=== PATIENT | female | born 1940 | race Caucasian/White ===

== ENCOUNTER 2020-07-13 08:03 | Outpatient (REF) | payer MEDICARE, MEDICAID, SELFPAY ==
--- NOTE | ~2020-07-13 | XR_ITS ---
EXAMINATION: XR SHOULDER, RIGHT CLINICAL INFORMATION: Right shoulder pain COMPARISON: None TECHNIQUE: AP external rotation, Grashey, scapular Y, and axillary views of the right shoulder. FINDINGS: There is significant loss of glenohumeral joint space with inferior periarticular spurring. The AC joint is normal. No visible acute fracture, dislocation or subluxation seen. There is no soft tissue calcification. XR/XR shoulder RT min 2V IMPRESSION: Severe degenerative changes glenohumeral joint with periarticular spurring.
== END 2020-07-13 08:04 | disposition home or self-care (01) ==
LOC: HO.HOSX 08:03
PROVIDERS: Visit Provider Orthopaedic Surgery
DX: M19.011 Primary osteoarthritis, right shoulder (principal)
CPT/HCPCS: 73030

== ENCOUNTER → 2020-07-13 08:04 | Outpatient (BNVA) | payer MEDICARE, MEDICAID, SELFPAY | PROVIDERS: PCP Internal Medicine; Visit Provider Orthopaedic Surgery | DX: M19.011 Primary osteoarthritis, right shoulder (principal) | CPT/HCPCS: 20610; 99202; J1040; J1100 ==

== ENCOUNTER 2020-10-01 14:22 | Outpatient (REF) | payer MEDICARE, MEDICAID, SELFPAY ==
[2020-10-01 16:12] LABS: Urine Cytology See Pathology rpt
== END 2020-10-01 14:23 | disposition home or self-care (01) ==
LOC: HO.LNP 14:22
PROVIDERS: PCP Internal Medicine
DX: R31.9 Hematuria, unspecified (principal); R32 Unspecified urinary incontinence
CPT/HCPCS: 51798; 88112; 99212

== ENCOUNTER 2020-10-19 09:01 | Outpatient (REF) | payer MEDICARE, MEDICAID, SELFPAY ==
--- NOTE | ~2020-10-19 | US_ITS ---
EXAMINATION: US RETROPERITONEAL LIMITED (RENAL ONLY) CLINICAL INFORMATION: Hematuria, unspecified. COMPARISON: CT abdomen and pelvis without contrast dated 09/11/2018. TECHNIQUE: Real-time imaging of the kidneys. FINDINGS: RIGHT KIDNEY: 11.1 x 3.6 x 5.4 cm (SAG x AP x TRV). The kidney is normal in size, contour, and echogenicity. Renal cortical thickness is normal. No calculi or focal parenchymal lesions. No hydronephrosis. LEFT KIDNEY: 10.6 x 4.2 x 4.4 cm (SAG x AP x TRV). The kidney is normal in size, contour, and echogenicity. Renal cortical thickness is normal. No calculi or focal parenchymal lesions. No hydronephrosis. US/US renal BI IMPRESSION: Unremarkable examination.
== END 2020-10-19 09:02 | disposition home or self-care (01) ==
LOC: HO.HMGCX 09:01
PROVIDERS: PCP Hospitalist
DX: R31.9 Hematuria, unspecified (principal)
CPT/HCPCS: 76775

== ENCOUNTER 2020-11-04 | Outpatient (REF) | payer MEDICARE, MEDICAID, SELFPAY | END 2020-11-04 00:01 | disposition home or self-care (01) | LOC: HO.LNP | PROVIDERS: Visit Provider Internal Medicine | DX: Z20.822 Contact with and (suspected) exposure to COVID-19 (principal); J06.9 Acute upper respiratory infection, unspecified | CPT/HCPCS: U0003; U0005 ==

== ENCOUNTER → 2020-12-23 14:44 | Outpatient (BNVA) | payer MEDICARE, MEDICAID, SELFPAY | PROVIDERS: Visit Provider Urology | DX: R31.9 Hematuria, unspecified (principal); N32.81 Overactive bladder | CPT/HCPCS: 52000; 99212 ==

== ENCOUNTER 2021-01-25 08:01 | Outpatient (REF) | payer MEDICARE, MEDICAID, SELFPAY | END 2021-01-25 08:02 | disposition home or self-care (01) | LOC: HO.HMGCLDS 08:01 | PROVIDERS: PCP Hospitalist; Visit Provider Internal Medicine | DX: Z20.822 Contact with and (suspected) exposure to COVID-19 (principal) | CPT/HCPCS: C9803; U0003; U0005 ==

== ENCOUNTER → 2021-04-08 13:54 | Outpatient (BNVA) | payer MEDICARE, MEDICAID, SELFPAY | PROVIDERS: PCP Internal Medicine; Visit Provider Orthopaedic Surgery | DX: M19.011 Primary osteoarthritis, right shoulder (principal) | CPT/HCPCS: 20610; 99212; J1040 ==

== ENCOUNTER 2021-04-10 07:51 | Outpatient (REF) | payer MEDICARE, MEDICAID, SELFPAY ==
[2021-04-10 11:12] LABS: MANUAL DIFF FLAG NO
[2021-04-10 11:19] LABS: Basophils Percent Auto 0.8 % (0-2); Eosinophils Absolute Auto 0.1 X10*3/uL (0.0-0.4); Eosinophils Percent Auto 1.4 % (0-4); Hematocrit 42.9 % (37.0-47.0); Hemoglobin 15.4 g/dl (12.0-16.0); Imm Gran Abs Auto 0.01 X10*3/uL (0.00-0.03); Imm Gran Pct Auto 0.2 % (0.0-0.4); Lymphocytes Absolute Auto 1.5 X10*3/uL (1.2-4.9); Lymphocytes Percent Auto 29.6 % (20-40); Mean Corpuscular HGB Conc 35.9 g/dl (31.0-35.0); Mean Corpuscular Hemoglobin 35.9 pg (27.0-33.0); Monocytes Absolute Auto 0.4 X10*3/uL (0.1-1.2); Monocytes Percent Auto 8.7 % (2-11); Neutrophils Absolute Auto 2.9 x10*3/uL (2.0-8.3); Neutrophils Percent Auto 59.3 % (45-73); Platelet Count 227 X10*3/uL (160-400); Red Blood Count 4.29 X10*6/uL (4.20-5.50); Red Cell Distribution Width 12.2 % (11.0-16.0); White Blood Count 4.9 X10*3/uL (4.8-10.8)
[2021-04-10 11:49] LABS: Alanine Aminotransferase 29 U/L (0-31); Albumin Level 4.2 g/dL (3.5-5.0); Alkaline Phosphatase 110 U/L (39-117); Anion Gap 12 (12-20); Aspartate Amino Transferase 27 U/L (5-31); Bilirubin Total 0.5 mg/dL (0.0-1.0); Blood Urea Nitrogen 13 mg/dL (9-16); Carbon Dioxide 29 mmol/L (22-29); Chloride 95 mmol/L (96-108); Cholesterol 192 mg/dL; Estimated Glomerular Filt Rate > 60; Glucose Fasting 94 mg/dL (60-99); HDL Cholesterol 66 mg/dL; LDL Cholesterol Calculated 105 mg/dl; Potassium 4.3 mmol/L (3.3-5.1); Sodium 132 mmol/L (135-145); Total Protein 6.9 g/dL (6.5-8.0); Triglycerides 105 mg/dL
[2021-04-12 05:00] LABS: Vitamin B12 410 pg/mL (200-900)
[2021-04-15 13:32] LABS: Vitamin D 25-OH, D2 <4 ng/mL; Vitamin D 25-OH, D3 32 ng/mL; Vitamin D 25-OH, Total 32 ng/mL (30-100)
== END 2021-04-10 07:52 | disposition home or self-care (01) ==
LOC: HO.HMGCLDS 07:51
PROVIDERS: Visit Provider Internal Medicine
DX: M19.011 Primary osteoarthritis, right shoulder (principal); N32.81 Overactive bladder; Z76.89 Persons encountering health services in other specified circumstances
CPT/HCPCS: 36415; 80053; 80061; 82306; 82607; 84443; 85025

== ENCOUNTER 2021-04-22 14:13 | Outpatient (REF) | payer MEDICARE, MEDICAID, SELFPAY ==
--- NOTE | 2021-04-23 09:20 | MHC.AU.ANO ---
Adult Audiological Evaluation Date of Visit: 04/22/21 Patternator Used: Not Applicable Reason for Appointment: Audiologic re-evaluation due to increased hearing difficulties. Leela was previously seen at this office in 2013 and received binaural ip-yml-metta hearing aids. Both hearing aids are no longer functioning and she needs new hearing aids to facilitate communication. Has hearing been tested previously?: Yes Previous Hearing Test Results: 2013 [facility] Bilateral mild to moderately-severe sensorineural hearing loss. Hearing Handicap Inventory: HHIE SCORE: 18 Based on HHIE score, patient has: Mild to moderate perceived hearing handicap Ear History: Family History of Hearing Loss?: Yes History of occupational noise exposure?: Yes History: No Medical History: Medical History: Seizure Disorder, Tobacco Use, Dementia Medication List: Carbamazepine, Effexor (may cause slower auditory processing ability), Tamsulosin, Phenobarbital, Trelegy Ellipta, Vitamin D3, Fish Oil, Typlenol, Melatonin Otoscopy: Right Ear: Unremarkable Left Ear: Unremarkable Tympanometry: Tympanometry performed due to: To assess integrity of the middle ear system Right Ear: Normal Middle Ear System (Type A) Left Ear: Normal Middle Ear System (Type A) Otoacoustic Emissions Not performed at today's visit due to degree of hearing loss Hearing Evaluation: Transducer(s) Used: Insert Earphones Bone Conduction Method: Conventional Audiometry Stimuli Used: Pure Tones Right Ear: Description of Hearing: Mild dropping to severe sensorineural hearing loss. Compared to the left ear, thresholds at 6613-3102 Hz are 5-15 dB poorer. Left Ear: Description of Hearing: Mild dropping to severe sensorineural hearing loss. Speech Recognition Threshold (SRT): Method Used: Monitored Live Voice Stimuli Used: Spondee Words Right Ear: 50 dB HL Left Ear: 40 dB HL Word Discrimination: Method: Recorded Lists Word Lists Used: NU-6 Right Ear: 64% at 85 dB HL Left Ear: 72% at 80 dB HL Most Comfortable Level (MCL): Right Ear: 85 dB HL Left Ear: 80 dB HL Comparison: Compared to the most recent evaluation: Thresholds have decreased bilaterally and Word discrimination scores have decreased bilaterally. Recommendations: Trial with new binaural amplification is recommended. Medical clearance from a physician is required before fitting. Hearing Aid Fitting will be scheduled when all materials arrive. Audiological re-evaluation in one year. Will send a reminder card. Diagnosis: Primary Diagnosis: H90.3 Bilateral Sensorineural Hearing Loss Services Performed: Comprehensive Audiological Evaluation (CPT 67636) Tympanometry (CPT 85074) Signature: Provider: Rita Gregory, CCC-A
--- NOTE | 2021-04-23 09:24 | MHC.AU.MED ---
Medical Clearance for Hearing Instrumentation Date: 04/23/21 Patient Name: Leela Trujillo Date of : 1940 Primary Care Provider: Referring Provider: Nila Eldridge M.D. We have seen your patient on 04/22/21 and have determined that they are a candidate for amplification (See accompanying report). Specifically, they would benefit from: Hearing aid use in both ears There is a statute that addresses Medical Evaluation Requirements prior to fitting a patient with a hearing aid. According to [place] statute 265 CMR:6.03(1), (a) General. Except as provided in 265 CMR 6.03(1)(b), a java grails developer shall not sell a hearing aid unless the prospective user has presented to the java grails developer a written statement signed by a licensed physician that states that the patient's hearing loss has been medically evaluated and the patient may be considered a candidate for a hearing aid. The medical evaluation must have taken place within the preceding six months. Please note: Due to the [place] Statute referenced above, we cannot accept a signature other than that of a licensed physician. MANAGER OF PRODUCTION and PA signatures cannot be accepted. I am in agreement with the above recommendation. There is no medical contraindication for hearing instrumentation. Physician Signature Date Physician Name (Printed)
--- NOTE | 2021-04-23 09:38 | MHC.AU.HAS ---
Hearing Aid Evaluation Date of Visit: 04/22/21 Historical Information: Description of Hearing: Bilateral Mild dropping to severe sensorineural hearing loss Current personal amplification information, if applicable: 2013 Phonak Virto Q 312-NW aids not working. Summary: Due to patient's increasing hearing loss, decreased speech understanding and progressing dementia, recommend new binaural hearing aids. Discussed needs with patient and her daughter. As daughter is concerned patient will remove aids and misplace them, as well as ease of placing aids in ears, advise custom hearing aids with OtoClips to attach to clothing to reduce likelihood of losing aids. Hearing Aid Prescription: Based on the individual?s shared listening needs, communication environments, dexterity, desire for connectivity, and personal preferences, the following prescription for amplification has been made: Right ear: Frame Carver Spindle: Phonak Model: Virto P 70 ITC with Otoclip clasp Battery Size: 312 Color: [place] Steel Checker: Super Power Left ear: Left ear prescription to be same as Right Hearing Aid above: Frame Carver Spindle: Phonak Model: Virto P 70-312 Battery Size: 312 Color: [place] Steel Checker: Super Power Plan of Care: Patient wishes to purchase hearing aids as prescribed Action Taken/Action Needed: Earmold Impressions Taken Medical Clearance to be requested from PCP/ENT Hearing Instrument Fitting to be scheduled when materials arrive Primary Diagnosis: H90.3 Bilateral Sensorineural Hearing Loss Signature: Provider: Rita Gregory, CCC-A
== END 2021-04-22 14:14 | disposition home or self-care (01) ==
LOC: HO.SH 14:13
PROVIDERS: Visit Provider Hospitalist
DX: Z01.118 Encounter for examination of ears and hearing with other abnormal findings (principal); H90.3 Sensorineural hearing loss, bilateral
CPT/HCPCS: 92557; 92567; 92591; V5275

== ENCOUNTER → 2021-05-19 14:46 | Outpatient (BNVA) | payer MEDICARE, MEDICAID, SELFPAY | PROVIDERS: PCP Internal Medicine; Visit Provider Nurse Practitioner Family | DX: M19.011 Primary osteoarthritis, right shoulder (principal); G31.09 Other frontotemporal neurocognitive disorder; F02.80 Dementia in other diseases classified elsewhere, unspecified severity, without behavioral disturbance, psychotic disturbance, mood disturbance, and anxiety | CPT/HCPCS: 99202 ==

== ENCOUNTER 2021-06-03 10:23 | Outpatient (REF) | payer MEDICARE, MEDICAID, SELFPAY | END 2021-06-03 10:24 | disposition home or self-care (01) | LOC: HO.HAP 10:23 | PROVIDERS: Visit Provider Internal Medicine | DX: Z46.1 Encounter for fitting and adjustment of hearing aid (principal); H90.3 Sensorineural hearing loss, bilateral | CPT/HCPCS: V5011; V5020; V5160; V5259; V5266 ==

== ENCOUNTER 2021-06-10 16:37 | Emergency (ER) | payer MEDICARE, MEDICAID, SELFPAY ==
--- NOTE | ~2021-06-10 | CT_ITS ---
EXAMINATION: HEAD CT WITHOUT CONTRAST CERVICAL SPINE CT WITHOUT CONTRAST CLINICAL INFORMATION: Fall, posterior head strike COMPARISON: CT head 09/11/2018 TECHNIQUE: Contiguous axial imaging of the head was performed without the administration of IV contrast. Axial multidetector volumetric images were also performed through the cervical spine without contrast. Multiplanar reconstructed images in coronal and sagittal orientations were submitted. DOSE: 887 mGy-cm FINDINGS: HEAD: There is left occipital soft tissue swelling and scalp hematoma. No underlying skull fracture. There is no evidence of acute intracranial hemorrhage or territorial infarction. No abnormal mass-effect or midline shift. No extra-axial fluid collections. Crawford to white matter differentiation is well preserved. Commensurate prominence of the ventricles and sulci is compatible with generalized parenchymal volume loss. There is patchy periventricular and subcortical white matter hypoattenuation, most likely representing microangiopathic disease The sinuses and mastoid air cells are clear. CERVICAL SPINE: Vertebral body heights are maintained. No fractures of the vertebral bodies or posterior elements. Straightening of cervical curvature. Mild anterolisthesis of C3 and C4. Mild anterolisthesis at C7-T1. Severe disc degeneration C4-C7. Multilevel facet degeneration. The craniocervical and atlantoaxial articulations are normal. No significant paravertebral soft tissue swelling. Cervical soft tissues are unremarkable. Imaged portions of the lung apices are clear. CT/CT head/brain wo con IMPRESSION: 1. No CT evidence acute intracranial hemorrhage or territorial infarction. 2. Left occipital soft tissue swelling and scalp hematoma. 3. Chronic findings of the brain as detailed above. 4. No acute fracture in the cervical spine. 4. Severe cervical spondylosis.
--- NOTE | ~2021-06-10 | CT_ITS ---
EXAMINATION: HEAD CT WITHOUT CONTRAST CERVICAL SPINE CT WITHOUT CONTRAST CLINICAL INFORMATION: Fall, posterior head strike COMPARISON: CT head 09/11/2018 TECHNIQUE: Contiguous axial imaging of the head was performed without the administration of IV contrast. Axial multidetector volumetric images were also performed through the cervical spine without contrast. Multiplanar reconstructed images in coronal and sagittal orientations were submitted. DOSE: 887 mGy-cm FINDINGS: HEAD: There is left occipital soft tissue swelling and scalp hematoma. No underlying skull fracture. There is no evidence of acute intracranial hemorrhage or territorial infarction. No abnormal mass-effect or midline shift. No extra-axial fluid collections. Crawford to white matter differentiation is well preserved. Commensurate prominence of the ventricles and sulci is compatible with generalized parenchymal volume loss. There is patchy periventricular and subcortical white matter hypoattenuation, most likely representing microangiopathic disease The sinuses and mastoid air cells are clear. CERVICAL SPINE: Vertebral body heights are maintained. No fractures of the vertebral bodies or posterior elements. Straightening of cervical curvature. Mild anterolisthesis of C3 and C4. Mild anterolisthesis at C7-T1. Severe disc degeneration C4-C7. Multilevel facet degeneration. The craniocervical and atlantoaxial articulations are normal. No significant paravertebral soft tissue swelling. Cervical soft tissues are unremarkable. Imaged portions of the lung apices are clear. CT/CT cervical spine wo con IMPRESSION: 1. No CT evidence acute intracranial hemorrhage or territorial infarction. 2. Left occipital soft tissue swelling and scalp hematoma. 3. Chronic findings of the brain as detailed above. 4. No acute fracture in the cervical spine. 4. Severe cervical spondylosis.
[2021-06-10 17:23] VITALS: BP 144/90; PULSE 70; RESP 16; TEMP 36.1; O2SAT 99; BMI 28.5
--- NOTE | 2021-06-10 18:01 | ED_ITS ---
HPI - Fall General Chief Complaint: Wound/Laceration <NATHALIE Mcdermott Last Filed: 06/10/21 18:47> Stated Complaint: fall - head lac <NATHALIE Mcdermott Last Filed: 06/10/21 18:47> Time Seen by Provider: 06/10/21 17:34 <NATHALIE Mcdermott Last Filed: 06/10/21 18:47> Source: patient and family <NATHALIE Mcdermott Last Filed: 06/10/21 18:47> Mode of arrival: ambulatory <NATHALIE Mcdermott Last Filed: 06/10/21 18:47> Limitations: no limitations <NATHALIE Mcdermott Last Filed: 06/10/21 18:47> History of Present Illness HPI Narrative: 72-year-old female with a history of osteoarthritis, frontal lobe dementia, balance issues, COPD, seizures who presents to the ER for evaluation of a head injury. She was at home with her daughter when she got up out of her chair on the outside deck and was walking to go inside when she lost her balance while turning and fell backward and hit the back of her head on the deck. Fall was witnessed by her daughter. She did not lose consciousness. She is not on anticoagulation. Patient denies dizziness, lightheadedness or chest pain prior to the fall. Her daughter reports she is unsteady on her feet at baseline and is supposed to be using a walker. No other injuries. <NATHALIE Mcdermott Last Filed: 06/10/21 18:47> MD complaint: fall <NATHALIE Mcdermott Last Filed: 06/10/21 18:47> Onset (ago): hour(s) <NATHALIE Mcdermott Last Filed: 06/10/21 18:47> Fall from: standing <NATHALIE Mcdermott Last Filed: 06/10/21 18:47> Fall witnessed: yes, by family <NATHALIE Mcdermott Last Filed: 06/10/21 18:47> Place fall occurred: home <NATHALIE Mcdermott Last Filed: 06/10/21 18:47> Loss of consciousness: none <NATHALIE Mcdermott Last Filed: 06/10/21 18:47> Prolonged down time: no <NATHALIE Mcdermott - Last Filed: 06/10/21 18:47> Symptoms prior to fall: none <NATHALIE Mcdermott - Last Filed: 06/10/21 18:47> Context: tripped/slipped <NATHALIE Mcdermott - Last Filed: 06/10/21 18:47> Location of injury: head <NATHALIE Mcdermott - Last Filed: 06/10/21 18:47> Severity: mild <NATHALIE Mcdermott - Last Filed: 06/10/21 18:47> Severity scale (1-10): 3 <NATHALIE Mcdermott - Last Filed: 06/10/21 18:47> Quality: aching <NATHALIE Mcdermott - Last Filed: 06/10/21 18:47> Associated symptoms (after fall): headache (now improved) <NATHALIE Mcdermott - Last Filed: 06/10/21 18:47> Related Data Home Medications: Home Medications Medication Instructions Recorded Confirmed melatonin 5 mg capsule mg PO 07/13/20 05/19/21 omega-3 fatty acids 1,000 mg 1,000 mg PO DAILY 07/13/20 05/19/21 capsule (Fish Oil Concentrate) phenobarbital 97.2 mg tablet 97.2 mg PO DAILY 07/13/20 05/19/21 venlafaxine 150 mg 150 mg PO DAILY 07/13/20 05/19/21 capsule,extended release 24 hr acetaminophen 650 mg 650 mg PO Q12H 04/08/21 05/19/21 tablet,extended release (Tylenol 8 Hour) aspirin 81 mg tablet,delayed 81 mg PO DAILY 04/08/21 05/19/21 release carbamazepine 200 mg 600 mg PO BID tab 04/09/21 05/19/21 tablet,extended release,12 hr cholecalciferol (vitamin D3) 25 25 mcg PO DAILY 04/09/21 05/19/21 mcg (1,000 unit) capsule Previous Rx's Medication Instructions Recorded tamsulosin 0.4 mg capsule (Flomax) 0.4 mg PO BEDTIME #90 cap 02/04/21 fluticasone fur. 100 mcg-umeclid 1 ea INHALATION DAILY 90 Days #3 04/12/21 62.5 mcg-vilant 25 mcg units inhalat.powder <NATHALIE Mcdermott - Last Filed: 06/10/21 18:47> Allergies/Adverse Reactions: Allergies Allergy/AdvReac Type Severity Reaction Status Date / Time divalproex sodium Allergy Unknown UNKNOWN Verified 05/19/21 15:00 [From DEPAKOTE] phenytoin [Dilantin] Allergy Unknown unk Verified 05/19/21 15:00 <NATHALIE Mcdermott - Last Filed: 06/10/21 18:47> Review of Systems Review of Systems: Constitutional: No Fever, No Chills ENT/Mouth: No sore throat, No Rhinorrhea, No Swallowing Difficulty Eyes: No Eye Pain, No Swelling, No Redness Cardiovascular: No Chest Pain, No SOB, No Orthopnea, No Edema Respiratory: No Cough, No Sputum, No Wheezing, No dyspnea Gastrointestinal: No Nausea, No Vomiting, No Diarrhea, No abdominal Pain Genitourinary: No Dysuria, No Urinary Frequency, No Hematuria Musculoskeletal: No joint pain, No Myalgias Skin: +Skin Lesions, No rash Neuro: No Weakness, No Numbness, No Dizziness, + Headache Psych: No Anxiety/Panic, No Depression Heme/Lymph: No Bruising, No Lymphadenopathy, +Bleeding Endocrine: No Polyuria, No Polydipsia <NATHALIE Mcdermott - Last Filed: 06/10/21 18:47> [facility] Past Medical History Medical History: Medical History Epilepsy Hematuria Osteoarthritis of right shoulder <NATHALIE Mcdermott - Last Filed: 06/10/21 18:47> Surgical History: Surgical History History of appendectomy History of cataract surgery History of cholecystectomy <NATHALIE Mcdermott - Last Filed: 06/10/21 18:47> Family History Family History: Family History Maternal Grandmother Stomach cancer Sister Breast cancer <NATHALIE Mcdermott - Last Filed: 06/10/21 18:47> Social History Social History: Social History Housing: House Alcohol intake: never Patient Tobacco Use Status: Former Tobacco user Advance Directives: No Advance Directives Information Provided: No Current occupational status: disabled Current occupation: right handed <NATHALIE Mcdermott - Last Filed: 06/10/21 18:47> Physical Exam Vital Signs: Vital Signs: Last Vital Signs Temp 97 F 06/10/21 17:23 Pulse 70 06/10/21 17:23 Resp 16 06/10/21 17:23 BP 144/90 H 06/10/21 17:23 Pulse Ox 99 06/10/21 17:23 BMI result Body Mass Index 28.5 <NATHALIE Mcdermott - Last Filed: 06/10/21 18:47> Vital Signs: Last Vital Signs Temp 97 F 06/10/21 17:23 Pulse 70 06/10/21 17:23 Resp 16 06/10/21 17:23 BP 144/90 H 06/10/21 17:23 Pulse Ox 99 06/10/21 17:23 BMI result Body Mass Index 28.5 <NATHALIE Warren - Last Filed: 06/10/21 19:36> Appearance: Alert. Oriented X2. No acute distress. Head: occipitial area with an area of dried blood on the scalp, no active bleeding, non-tender. Eyes: Pupils equal, round and reactive to light. ENT: Pharynx normal. Neck: Normal inspection. Neck supple. No midline tenderness. CVS: Normal heart rate and rhythm. Pulses normal. Respiratory: No respiratory distress. Breath sounds normal. Abdomen: Soft and nontender. +BS x4 Skin: Skin warm and dry. Normal skin color. Normal skin turgor. No rashes. Extremities: Atraumatic x4, No lower extremity edema. Neuro: Oriented X 2. No motor deficit. No sensory deficit. Slow but steady gait in short distances. <NATHALIE Mcdermott - Last Filed: 06/10/21 18:47> Course Course Course Narrative: 72-year-old female with history of dementia, unsteady gait at baseline who presents to the ER with a fall and head injury. She hit the back of her head on the deck outside her home, did not lose consciousness and she is not on anticoagulation. She had a mild headache initially which is now resolved. No active bleeding but there is dried blood on the occipital area of the scalp with difficulty visualizing a laceration or not. Area is soaking in saline, will reassess need for possible sandhya. Will get CT scan of her head and neck for further evaluation of possible traumatic injury. Patient appears comfortable and denies pain at this time. <NATHALIE Mcdermott - Last Filed: 06/10/21 18:47> Reevaluation(s) Reevaluation #1: Lac to posterior scalp is minor, superficial, aleady well approximated and not bleeding, no need for sandhya. Signed out to night provider who will follow up CT scan results. <NATHALIE Mcdermott Last Filed: 06/10/21 18:47> Reevaluation #2: CT of head and cervical spine with nose CT evidence of acute intracranial hemorrhage or territorial infarction. Left occipital soft tissue swelling and scalp hematoma noted. Chronic findings in the brain however no acute findings. No acute fractures or subluxations in the cervical spine. At this time patient will be discharged home. Outlined worrisome signs and symptoms on discharge. Advised her to return if any of these arrives. Comfortable discharge. Upon discharge patient's vital signs were stable. Patient's neuro exam nonfocal. Normal ofizhz-vs-cber, ywyj-oe-ztzt normal tandem gaits. Pupils equal round and reactive to light bilaterally. <NATHALIE Warren - Last Filed: 06/10/21 19:36> Time: 19:34 <NATHALIE Warren Last Filed: 06/10/21 19:36> Discharge Plan Discharge Clinical Impression: Head injury <NATHALIE Mcdermott Last Filed: 06/10/21 18:47> Patient Disposition: Home, Self-Care <NATHALIE Mcdermott Last Filed: 06/10/21 18:47> Instructions: Head Injury (ED) <NATHALIE Mcdermott Last Filed: 06/10/21 18:47> Additional Instructions: Your CT scans did not show any acute injuries. Use bacitracin on the scalp wound 2x per day. Follow up with your doctor in 1 week. Return to the emergency department with new or worsening symptoms. Such as fevers, chills, chest pain, shortness of breath, nausea, vomiting, dizziness, headache, vision changes, lethargy, vision changes, seizure like activity In case of emergency call 911 CT/CT head/brain wo con IMPRESSION: 1. No CT evidence acute intracranial hemorrhage or territorial infarction. ? 2. Left occipital soft tissue swelling and scalp hematoma. ? 3. Chronic findings of the brain as detailed above. ? 4.? No acute fracture in the cervical spine. ? 4. Severe cervical spondylosis. <NATHALIE Mcdermott - Last Filed: 06/10/21 18:47> Prescriptions: No Action tamsulosin [Flomax] 0.4 mg capsule 0.4 mg PO BEDTIME Qty: 90 2RF ssumglsdidg-qifukfgra-ulgziyzt 100-62.5-25 mcg blister with device 1 ea inhalation DAILY 90 Days Qty: 3 0RF carbamazepine 200 mg tablet extended release 12 hr 600 mg PO BID 0RF cholecalciferol (vitamin D3) 25 mcg (1,000 unit) capsule 25 mcg PO DAILY 0RF omega-3 fatty acids [Fish Oil Concentrate] 1,000 mg capsule 1,000 mg PO DAILY 0RF phenobarbital 97.2 mg tablet 97.2 mg PO DAILY 0RF venlafaxine 150 mg capsule,extended release 24hr 150 mg PO DAILY 0RF melatonin 5 mg capsule PO 0RF Rx Instructions: at bedtime aspirin 81 mg tablet,delayed release (DR/EC) 81 mg PO DAILY 0RF acetaminophen [Tylenol 8 Hour] 650 mg tablet extended release 650 mg PO Q12H 0RF <NATHALIE Mcdermott - Last Filed: 06/10/21 18:47> Referrals: Nila Eldridge MD [Primary Care Provider] - 1 week <NATHALIE Mcdermott - Last Filed: 06/10/21 18:47> Stand Alone Forms: Work/School Release <NATHALIE Mcdermott - Last Filed: 06/10/21 18:47>
== END 2021-06-10 19:52 | disposition home or self-care (01) ==
PROVIDERS: Emergency Provider Emergency Medicine; PCP Internal Medicine
DX: S06.2X9A Diffuse traumatic brain injury with loss of consciousness of unspecified duration, initial encounter (principal); S01.01XA Laceration without foreign body of scalp, initial encounter; M54.2 Cervicalgia; F03.90 Unspecified dementia, unspecified severity, without behavioral disturbance, psychotic disturbance, mood disturbance, and anxiety; R26.81 Unsteadiness on feet; W01.0XXA Fall on same level from slipping, tripping and stumbling without subsequent striking against object, initial encounter; Y93.9 Activity, unspecified; Y92.9 Unspecified place or not applicable; Y99.9 Unspecified external cause status; Z79.899 Other long term (current) drug therapy
CPT/HCPCS: 70450; 72125; 99284

== ENCOUNTER 2021-06-17 13:24 | Outpatient (REF) | payer MEDICARE, MEDICAID, SELFPAY | END 2021-06-17 13:25 | disposition home or self-care (01) | LOC: HO.HAP 13:24 | PROVIDERS: Visit Provider Internal Medicine | DX: Z13.89 Encounter for screening for other disorder (principal) ==

== ENCOUNTER 2021-07-07 05:54 | Outpatient (REF) | payer MEDICARE, MEDICAID, SELFPAY ==
--- NOTE | ~2021-07-07 | FL_ITS ---
EXAMINATION: XR FLUOROSCOPY WITH IMAGES CLINICAL INFORMATION: Primary osteoarthritis right shoulder COMPARISON: Radiographs right shoulder 07/13/2020 TECHNIQUE: Fluoroscopy performed by Dr. Zachery Rothman. Fluoroscopy time: 0.4 minutes DAP: 1.56 Gycm2 Images: 2 FINDINGS: Spinal needle resides just above the mid right scapular spine. There is contrast in the soft tissues. No visible vascular communication. Degenerative changes involve the glenohumeral joint as noted on recent radiographs. FL/FL guidance in treatment room IMPRESSION: Fluoroscopy for pain management procedure.
== END 2021-07-07 05:55 | disposition home or self-care (01) ==
LOC: HO.RADIR 05:54
PROVIDERS: Visit Provider Internal Medicine
DX: Z13.89 Encounter for screening for other disorder (principal)
CPT/HCPCS: J2795; J3300; Q9967

== ENCOUNTER 2021-07-07 15:14 | Outpatient (REF) | payer MEDICARE, MEDICAID, SELFPAY | END 2021-07-07 15:15 | disposition home or self-care (01) | LOC: HO.HAP 15:14 | PROVIDERS: Visit Provider Internal Medicine | DX: Z46.1 Encounter for fitting and adjustment of hearing aid (principal); M19.011 Primary osteoarthritis, right shoulder; H90.3 Sensorineural hearing loss, bilateral | CPT/HCPCS: 64418; J2795; J3300; Q9967 ==

== ENCOUNTER → 2021-07-13 16:10 | Outpatient (BNVA) | payer MEDICARE, MEDICAID, SELFPAY | PROVIDERS: PCP Internal Medicine; Visit Provider Nurse Practitioner Family | DX: Z13.89 Encounter for screening for other disorder (principal) | CPT/HCPCS: Q3014 ==

== ENCOUNTER 2021-08-07 08:14 | Outpatient (REF) | payer MEDICARE, MEDICAID, SELFPAY ==
[2021-08-07 12:01] LABS: Alanine Aminotransferase 29 U/L (0-31); Albumin Level 4.1 g/dL (3.5-5.0); Alkaline Phosphatase 103 U/L (39-117); Anion Gap 12 (12-20); Aspartate Amino Transferase 25 U/L (5-31); Bilirubin Total 0.6 mg/dL (0.0-1.0); Blood Urea Nitrogen 8 mg/dL (9-16); Calcium 8.8 mg/dL (8.4-10.2); Carbon Dioxide 27 mmol/L (22-29); Chloride 94 mmol/L (96-108); Cholesterol 212 mg/dL; Estimated Glomerular Filt Rate > 60; Glucose Fasting 93 mg/dL (60-99); HDL Cholesterol 60 mg/dL; LDL Cholesterol Calculated 134 mg/dl; Potassium 4.4 mmol/L (3.3-5.1); Sodium 129 mmol/L (135-145); Total Protein 6.6 g/dL (6.5-8.0); Triglycerides 92 mg/dL
== END 2021-08-07 08:15 | disposition home or self-care (01) ==
LOC: HO.HMGCLDS 08:14
PROVIDERS: PCP Internal Medicine; Visit Provider Internal Medicine
DX: E78.9 Disorder of lipoprotein metabolism, unspecified (principal)
CPT/HCPCS: 36415; 80053; 80061

== ENCOUNTER 2021-09-22 11:22 | Day surgery (SDC) | payer MEDICARE, MEDICAID, SELFPAY ==
--- NOTE | ~2021-09-22 | FL_ITS ---
EXAMINATION: XR FLUOROSCOPY WITH IMAGES CLINICAL INFORMATION: Stimulator implant COMPARISON: Radiographs right shoulder 07/13/2020 TECHNIQUE: Fluoroscopy performed by Dr. Zachery Rothman. Fluoroscopy time: 0.4 minutes. Cumulative Dose: 4.24 mGy. DAP: 0.772 Gy-cm2. Images: 1. FINDINGS: There is a needle/electrode with tip overlying the medial aspect right scapular spine. FL/FL guidance in OR IMPRESSION: Fluoroscopy for pain management procedure.
[2021-09-22 10:54] VITALS: BMI 28.5
[2021-09-22 11:54] VITALS: BP 105/89; PULSE 78; RESP 18; TEMP 35.9; O2SAT 96
--- NOTE | 2021-09-22 13:10 | PC.NURSE ---
pt rhythm shows bbb anesthesia aware no new orders
[2021-09-22 13:48] VITALS: BP 118/58; PULSE 68; RESP 16; TEMP 36.2; O2SAT 97
--- NOTE | 2021-09-22 13:55 | MHC.SHP ---
Pre-Procedural Eval Section A Date of Service: 09/22/21 The patient is an INPATIENT: No Changes since office visit: Yes Patient answered all questions The History & Physical has been completed within 30 days and I have reviewed it.: No Section B Chief Complaint: right shoulder pain Relevant Family History (Specify if Yes): No Relevant Social History: None Present Medications: see Short Stay Collaborative assessment Medical History: Significant History (shoulder pain) History of Previous Operations: No relevant previous surgery Allergies: Allergies Allergy/AdvReac Type Severity Reaction Status Date / Time divalproex sodium Allergy Unknown UNKNOWN Verified 08/25/21 10:12 [From DEPAKOTE] phenytoin [Dilantin] Allergy Unknown unk Verified 08/25/21 10:12 Review of Systems Sugical H&P ROS: Negative: Constitution, Cardiovascular, Respiratory and Neurological Exam Surgical H&P Exam: Normal: HEENT, Normal: Heart and Normal: Lungs Plan Diagnosis/Plan: Unchanged I have reviewed the history and physical and performed a pertinent physical examination on my patient. No changes have occurred unless specified.
--- NOTE | 2021-09-22 13:56 | P.BOP_ITS ---
Brief Operative Note Date of Service: 09/22/21 Pre-op diagnosis: Right shoulder pain Post-op diagnosis: same Procedure: Right suprascapular nerve temporary nerve stimulator placement Implants: [employer] PNS system Surgeon: Zachery Rothman MD Anesthesia: local Was an Food Science Technician used for this Procedure?: No Estimated blood loss (mL): 0 Pathology: none sent Condition: stable Disposition: same day
--- NOTE | 2021-09-22 13:57 | W.PM.OPN ---
Operative Note Operative Note Date of Service: 09/22/21 Narrative: Peripheral Nerve Stimulation Temporary Lead Placement, Fluoroscopy-Guided, Suprascapular Nerve, Right ? After the risks, benefits and alternatives were discussed with the patient and informed consent was obtained, patient was placed in the sitting position and padded to foster comfort. Appropriate skin and bony landmarks were identified using fluoroscopy, including the right suprascapular notch. The skin overlying the needle entry site was prepped and draped in sterile fashion. After identifying and marking the intended target along the course of the suprascapular nerve, the skin around the planned entry point and the subcutaneous tissues were injected with local anesthetic. An introducer needle and stimulating probe were assembled, inserted and advanced along the intended course of the suprascapular nerve, taking care to maintain the proper depth of insertion as the introducer was advanced under fluoroscopy guidance. Bony contact was achieved with the scapula and maintained throughout. The introducer needle was delivered to a location in proximity to the nerve. Multiple stimulation parameters were used to deliver stimulation to the suprascapular nerve in concert with stimulating at multiple positions around the nerve. Nerve target acquisition was confirmed noting generation of sensory and mild motor effects (paresthesia, muscle tension, etc) in the shoulder and proximal arm; corresponding to the distribution of the suprascapular nerve. Various electrical parameter combinations were tested, and the lead location was adjusted (physically relocated under image guidance) until the patient indicated shoulder paresthesia and tension overlapping the distribution of the patient?s typical region of pain. The stimulating probe was removed from the introducer and a percutaneous lead was guided through the needle and delivered to a location in similar proximity to the nerve. Final location was verified with electrical stimulation and documented. The introducer needle was removed, and the exposed end of the percutaneous lead was attached to an external stimulator unit. Various electrical parameter combinations were again tested until the patient indicated paresthesia and muscle tension overlapping the distribution of the patient?s typical region of pain. After confirming that lead impedance was in the normal range, the external unit was detached, the needle was removed, and the lead was anchored at the skin. The needle entry site was occluded with dermabond. The lead was threaded into the connector block and electrical continuity and desired patient response was confirmed. The connector block was attached to the external stimulator unit. The site was covered with a sterile occlusive dressing.? A final image was taken to document final placement. The patient was observed for stability of vital signs and comfort.
[2021-09-22 14:03] VITALS: BP 144/85; PULSE 67; RESP 16; O2SAT 97
== END 2021-09-22 14:30 | disposition home or self-care (01) ==
PROVIDERS: PCP Internal Medicine; Visit Provider Internal Medicine
PROC: (CPT 64555; principal; 2021-09-22 12:30)
DX: M25.511 Pain in right shoulder (principal); G89.29 Other chronic pain; M19.011 Primary osteoarthritis, right shoulder; G40.909 Epilepsy, unspecified, not intractable, without status epilepticus; F03.90 Unspecified dementia, unspecified severity, without behavioral disturbance, psychotic disturbance, mood disturbance, and anxiety; Z88.8 Allergy status to other drugs, medicaments and biological substances; Z87.891 Personal history of nicotine dependence
CPT/HCPCS: 64555; C1778

== ENCOUNTER 2021-10-22 18:06 | Outpatient (REF) | payer MEDICARE, MEDICAID, SELFPAY | END 2021-10-22 18:07 | disposition home or self-care (01) | LOC: HO.LNP 18:06 | PROVIDERS: Visit Provider Internal Medicine | DX: N30.90 Cystitis, unspecified without hematuria (principal) | CPT/HCPCS: 87086 ==

== ENCOUNTER → 2021-11-19 08:20 | Outpatient (BNVA) | payer MEDICARE, MEDICAID, SELFPAY | PROVIDERS: PCP Internal Medicine; Visit Provider Internal Medicine | DX: M25.511 Pain in right shoulder (principal) | CPT/HCPCS: 99212 ==

== ENCOUNTER 2022-03-18 18:08 | Observation (INO) | payer MEDICARE, MEDICAID, SELFPAY ==
--- NOTE | ~2022-03-18 | CT_ITS ---
EXAMINATION: CT HEAD WITHOUT CONTRAST CLINICAL INFORMATION: Increased confusion, slurred speech yesterday COMPARISON: CT brain 06/10/2021 TECHNIQUE: Contiguous axial imaging was performed from the skull base to vertex without intravenous administration of contrast. This CT examination was performed using dose optimization techniques as appropriate, variously including the following: *Automated exposure control *Adjustment of mA and/or kV according to patient size (this includes techniques or standardized protocols for targeted exams where dose is matched to indication/reason for exam; i.e. extremities or head) *Use of iterative reconstruction technique DLP: 1074 mGy-cm FINDINGS: There is no evidence of acute intracranial hemorrhage or edematous territorial infarction. No abnormal mass effect or midline shift is seen. [place] to white matter differentiation is well preserved. No extra-axial fluid collections are identified. Commensurate prominence of the ventricles and sulci is compatible with generalized parenchymal volume loss. There is patchy prominent periventricular and subcortical white matter hypoattenuation, nonspecific, more commonly seen representing microangiopathic disease . No acute calvarial fracture.. Paranasal sinuses and mastoid air cells are well-aerated. CT/CT head/brain wo IV con IMPRESSION: No CT evidence of acute intracranial hemorrhage or edematous large vessel territorial infarction. 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 Small infarcts may not be evident on the noncontrast CT. Etiology of patient's symptoms has not been determined. Further evaluation with CTA or MRI as clinically warranted.
--- NOTE | ~2022-03-18 | US_ITS ---
EXAMINATION: US EXTRACRANIAL CAROTID DUPLEX, BILATERAL CLINICAL INFORMATION: Stroke COMPARISON: None TECHNIQUE: Real-time ultrasound and Doppler techniques (integrating B-mode 2-D vascular images, Doppler spectral analysis and color-flow Doppler imaging) were utilized to interrogate the extracranial carotid arteries, the vertebral arteries and proximal subclavian arteries bilaterally. The degree of stenosis is determined by criteria similar to NASCET. FINDINGS: Right Side: 1. There is mild calcified atherosclerotic plaque seen in the bifurcation/proximal ICA region. 2. The common carotid artery PSV proximally is 57 cm/s and distally 49 cm/s. 3. The proximal internal carotid artery velocities are 47 cm/s systolic and 13 cm/s diastolic. 4. The proximal external carotid artery PSV is 108 cm/s. 5. The vertebral artery shows antegrade flow. 6. The subclavian artery waveforms are normal. Left Side: 1. There is no significant atherosclerotic plaque seen in the bifurcation/proximal ICA region. 2. The common carotid artery PSV proximally is 66 cm/s and distally 39 cm/s. 3. The proximal internal carotid artery velocities are 71 cm/s systolic and 26 cm/s diastolic. 4. The proximal external carotid artery PSV is 59 cm/s. 5. The vertebral artery shows antegrade flow. 6. The subclavian artery waveforms are normal. US/US carotid duplex BI IMPRESSION: 1. RIGHT: Minimal, non-hemodynamically significant stenosis of the proximal right internal carotid artery corresponding to a 0-49% stenosis by velocity criteria. 2. LEFT: Minimal, non-hemodynamically significant stenosis of the proximal left internal carotid artery corresponding to a 0-49% stenosis by velocity criteria.
--- NOTE | ~2022-03-18 | XR_ITS ---
EXAMINATION: XR CHEST CLINICAL INFORMATION: Positive Covid COMPARISON: 09/11/2018 TECHNIQUE: 2 views of the chest were obtained. FINDINGS: No significant abnormality is noted involving the heart, lungs, mediastinum, bony thorax or soft tissues. XR/XR chest 2V IMPRESSION: No findings of atypical infection grossly. No pneumonia.
--- NOTE | ~2022-03-18 | XR_ITS ---
EXAMINATION: XR ABDOMEN KUB CLINICAL INDICATION: Rule out foreign body, pre-MRI. Confusion. COMPARISON: CT scan of September 11, 2018 TECHNIQUE: AP view of the abdomen. FINDINGS: No dilated loops of large or small bowel are evident. Clips about the right upper quadrant are seen consistent with previous cholecystectomy. There is a 2 mm rounded metallic density seen overlying the L5 vertebra. On prior CT scan this appears to lie within the posterior soft tissues. There is also what appears to be a portion of a possible stimulator wire which on previous CT scan is seen to be within the sacrococcyx region adjacent to the sigmoid colon as well.. There is multilevel degenerative change of the lumbar spine. XR/XR KUB IMPRESSION: What appears to be a remnant of neurostimulator overlying the sacrum and coccyx. Small round metallic density which on CT scanning is seen to lie within the posterior subcutaneous tissues.
[2022-03-18 18:15] VITALS: BP 152/80; PULSE 80; RESP 20; TEMP 36.4; O2SAT 96; BMI 28.5
--- NOTE | 2022-03-18 18:19 | ED.GENADULT ---
HPI - General Adult General Chief complaint: General Medical <Liya Olivares CNP - Last Filed: 03/19/22 11:56> Stated complaint: Slurred speech/confussion <Liya Olivares CNP - Last Filed: 03/19/22 11:56> Time Seen by Provider: 03/18/22 19:09 <Liya Olivares CNP - Last Filed: 03/19/22 11:56> Source: patient <Mikaela Hansen MD - Last Filed: 03/18/22 22:13> Mode of arrival: ambulatory <Mikaela Hansen MD - Last Filed: 03/18/22 22:13> Limitations: no limitations <Mikaela Hansen MD - Last Filed: 03/18/22 22:13> History of Present Illness HPI narrative: Patient comes to the emergency room from home accompanied by her daughter. Patient was diagnosed 1 week ago with COVID-19, patient has been taking packs of it for 4 days. Patient has history of frontotemporal dementia, but according to the daughter patient is still able to have a fairly coherent conversation. However, over last week, patient has been more confused than usual, weaker. The daughter states that yesterday the patient had intermittent slurred speech with no other neurological deficits. No mouth drooping or slurred speech today. In the triage note, says the patient has new onset incontinence. However, the daughter explains that the patient has history of over reactive bladder, and now that the patient is weak, she has accidents because she does not have enough time to reach the bathroom. Patient is awake and alert, very confused, unable to give any coherent history at this time <Mikaela Hansen MD - Last Filed: 03/18/22 22:13> Related Data Home medications: Home Medications Medication Instructions Recorded Confirmed melatonin 5 mg capsule 5 mg PO BEDTIME 07/13/20 03/18/22 omega-3 fatty acids 1,000 mg 1,000 mg PO DAILY 07/13/20 03/18/22 capsule (Fish Oil Concentrate) phenobarbital 97.2 mg tablet 97.2 mg PO BEDTIME 07/13/20 03/18/22 aspirin 81 mg tablet,delayed 81 mg PO DAILY 04/08/21 03/18/22 release cholecalciferol (vitamin D3) 25 25 mcg PO DAILY 04/09/21 03/18/22 mcg (1,000 unit) capsule acetaminophen 500 mg tablet 1,000 mg PO BID 06/16/21 03/18/22 (Tylenol Extra Strength) carbamazepine 200 mg tablet 3 tab PO BID 03/18/22 03/18/22 tamsulosin 0.4 mg capsule (Flomax) 0.4 mg PO DAILY urinary retetion 03/18/22 03/18/22 Previous Rx's Medication Instructions Recorded venlafaxine 150 mg 150 mg PO DAILY 90 days #90 caps 01/31/22 capsule,extended release 24 hr fluticasone fur. 100 mcg-umeclid 1 ea inhalation DAILY 90 days #3 02/24/22 62.5 mcg-vilant 25 mcg multiple units inhalat.powder nirmatrelvir 150 mg-ritonavir 100 See Rx Instructions PO PER PKG DIR 03/14/22 mg tablets in a dose pack (EUA) 5 days #20 tabs (Paxlovid) <Liya Olivares CNP - Last Filed: 03/19/22 11:56> Allergies/adverse reactions: Allergies Allergy/AdvReac Type Severity Reaction Status Date / Time divalproex sodium Allergy Unknown UNKNOWN Verified 11/19/21 08:40 [From DEPAKOTE] phenytoin [Dilantin] Allergy Unknown unk Verified 11/19/21 08:40 <Liya Olivares CNP - Last Filed: 03/19/22 11:56> Review of Systems Review of Systems: Yes Unobtainable due to mental status <Mikaela Hansen MD - Last Filed: 03/18/22 22:13> [facility] Past Medical History Medical History: Medical History Anxiety, generalized Chronic hyponatremia COPD, moderate Epilepsy Hematuria Osteoarthritis of right shoulder Right shoulder pain <Liya Olivares CNP - Last Filed: 03/19/22 11:56> Surgical History: Surgical History History of appendectomy History of cataract surgery History of cholecystectomy <Liya Olivares CNP - Last Filed: 03/19/22 11:56> Family History Family History: Family History Maternal Grandmother Stomach cancer Sister Breast cancer <Liya Shah ANAHI Olivares - Last Filed: 03/19/22 11:56> Social History Social History: Social History Household Members: Family Housing: House Do you presently have visiting nurse or other home services: Yes ([facility]) Alcohol intake: never Patient Tobacco Use Status: Former Tobacco user e-Cigarette/Vaping Use: Never Used Current occupational status: disabled Current occupation: right handed Cognitive needs: No Hearing needs: Yes Vision needs: Yes <Liya Shah ANAHI Olivares - Last Filed: 03/19/22 11:56> Physical Exam ED Vital Signs: Vital Signs - 24 hr 03/18/22 18:15 03/18/22 21:43 Temperature 97.6 F Pulse Rate 80 68 Respiratory Rate 20 19 Blood Pressure 152/80 H 147/67 H Pulse Oximetry 96 100 Oxygen Delivery Method Room Air Room Air BMI result Body Mass Index 28.5 <Liya AlmonteANAHI mera - Last Filed: 03/19/22 11:56> Vital Signs - 24 hr 03/18/22 18:15 03/18/22 21:43 Temperature 97.6 F Pulse Rate 80 68 Respiratory Rate 20 19 Blood Pressure 152/80 H 147/67 H Pulse Oximetry 96 100 Oxygen Delivery Method Room Air Room Air BMI result Body Mass Index 28.5 <Mikaela Hansen MD - Last Filed: 03/18/22 22:13> Const Other: Appearance: Alert. Oriented X1. No acute distress. Talking but incoherently Eyes: Pupils equal, round and reactive to light. Seems to have photophobia ENT: Pharynx normal. Neck: Normal inspection. Neck supple. No lymph nodes noted. No crepitus CVS: Normal heart rate and rhythm. Pulses normal. Normal S1 and S2 Respiratory: No respiratory distress. Breath sounds normal. No Wheezing. No rales Abdomen: Soft and nontender. No rigidity. No distention. Skin: Skin warm and dry. Normal skin color. Normal skin turgor. Extremities: No lower extremity edema. No Lacerations. No Rash Neuro: Oriented X 1. No motor deficit. No sensory deficit. Moving all extremities. No slurred speech. CN 2 through 12 grossly intact Psych: calm, cooperative <Mikaela Hansen MD - Last Filed: 03/18/22 22:13> NIH Stroke Scale Level of Consciousness: Alert <Mikaela Hansen MD - Last Filed: 03/18/22 22:13> Level of Consciousness Questions: Answers both questions correctly <Mikaela Hansen MD - Last Filed: 03/18/22 22:13> Level of Consciousness Commands: Performs both tasks correctly <Mikaela Hansen MD - Last Filed: 03/18/22 22:13> Best Gaze: Normal <Mikaela Hansen MD - Last Filed: 03/18/22 22:13> Visual: No visual loss <Mikaela Hansen MD - Last Filed: 03/18/22 22:13> Facial Palsy: Normal <Mikaela Hansen MD - Last Filed: 03/18/22 22:13> Motor Arm (Right): No drift <Mikaela Hansen MD - Last Filed: 03/18/22 22:13> Motor Arm (Left): No drift <Mikaela Hansen MD - Last Filed: 03/18/22 22:13> Motor Leg (Right): No drift <Mikaela Hansen MD - Last Filed: 03/18/22 22:13> Motor Leg (Left): No drift <Mikaela Hansen MD - Last Filed: 03/18/22 22:13> Limb Ataxia: Absent <Mikaela Hansen MD - Last Filed: 03/18/22 22:13> Sensory: Normal <Mikaela Hansen MD - Last Filed: 03/18/22 22:13> Best Language: No aphasia <Mikaela Hansen MD - Last Filed: 03/18/22 22:13> Dysarthia: Normal <Mikaela Hansen MD - Last Filed: 03/18/22 22:13> Extinction and Inattention: No abnormality <Mikaela Hansen MD - Last Filed: 03/18/22 22:13> Score: 0 <Liya Olivares CNP - Last Filed: 03/19/22 11:56> 0 <Mikaela Hansen MD - Last Filed: 03/18/22 22:13> Course Course Course Narrative: This is an RME: Additional HPI, ROS, PE not included below will be deferred to primary provider. Patient is a 81 female who presents emergency department with daughter. Daughter contacted primary care provider's office and was advised to come to the emergency department. She reports that patient Tested positive for COVID-19 1 week ago. Started Paxlovid 4 days ago. Concern for increased confusion, decreased appeitite, reported speech slurred yesterday, today speech is clear. Confusion at baseline due to dementia. Denies anticoagulants. PE: no focal neurological defecits, speech clear, no apparent distress Plan: labs, EKG, CXR, urinalysis, head CT. Brought back to main ED. <Liya Olivares, HIGH LIFT OPERATOR - Last Filed: 03/19/22 11:56> Medications Administered Generic Name Dose Route Start Last Admin Trade Name Eliasq PRN Reason Stop Dose Admin Acetaminophen 975 mg 03/19/22 09:00 03/19/22 09:47 Acetaminophen 325 Mg Tablet PO 975 mg BID ALEXANDER Administration Aspirin 81 mg 03/19/22 09:00 03/19/22 09:48 Aspirin Enteric Coated 81 Mg Tablet. PO 81 mg DAILY ALEXANDER Administration Carbamazepine 600 mg 03/18/22 22:30 03/19/22 09:48 Carbamazepine 200 Mg Tablet PO 600 mg BID ALEXANDER Administration Enoxaparin Sodium 40 mg 03/18/22 22:00 03/18/22 22:53 Enoxaparin Sodium 40 Mg/0.4 Ml Syringe SUBCUT 40 mg Q24H ALEXANDER Administration Melatonin 6 mg 03/18/22 22:45 03/18/22 22:52 Melatonin 3 Mg Tablet PO 6 mg BEDTIME ALEXANDER Administration Phenobarbital 100 mg 03/18/22 22:45 03/18/22 22:52 Phenobarbital 100 Mg Tablet PO 100 mg BEDTIME ALEXANDER Administration Sodium Chloride 3 ml 03/19/22 00:00 03/19/22 09:48 0.9 % Sodium Chloride Flush 3 Ml Syringe IVFLUSH 3 ml QSHIFT ALEXANDER Administration Tamsulosin HCl 0.4 mg 03/19/22 09:00 03/19/22 09:48 Tamsulosin Hcl 0.4 Mg Capsule PO 0.4 mg DAILY ALEXANDER Administration Venlafaxine HCl 150 mg 03/19/22 09:00 03/19/22 09:47 Venlafaxine Hcl Er 150 Mg Cap.Er.24h PO 150 mg DAILY ALEXANDER Administration <Liya Olivares CNP - Last Filed: 03/19/22 11:56> Medications Administered Generic Name Dose Route Start Last Admin Trade Name Linda PRN Reason Stop Dose Admin Acetaminophen 975 mg 03/19/22 09:00 03/19/22 09:47 Acetaminophen 325 Mg Tablet PO 975 mg BID ALEXANDER Administration Aspirin 81 mg 03/19/22 09:00 03/19/22 09:48 Aspirin Enteric Coated 81 Mg Tablet.Dr PO 81 mg DAILY ALEXANDER Administration Carbamazepine 600 mg 03/18/22 22:30 03/19/22 09:48 Carbamazepine 200 Mg Tablet PO 600 mg BID ALEXANDER Administration Enoxaparin Sodium 40 mg 03/18/22 22:00 03/18/22 22:53 Enoxaparin Sodium 40 Mg/0.4 Ml Syringe SUBCUT 40 mg Q24H ALEXANDER Administration Melatonin 6 mg 03/18/22 22:45 03/18/22 22:52 Melatonin 3 Mg Tablet PO 6 mg BEDTIME ALEXANDER Administration Phenobarbital 100 mg 03/18/22 22:45 03/18/22 22:52 Phenobarbital 100 Mg Tablet PO 100 mg BEDTIME ALEXANDER Administration Sodium Chloride 3 ml 03/19/22 00:00 03/19/22 09:48 0.9 % Sodium Chloride Flush 3 Ml Syringe IVFLUSH 3 ml QSHIFT ALEXANDER Administration Tamsulosin HCl 0.4 mg 03/19/22 09:00 03/19/22 09:48 Tamsulosin Hcl 0.4 Mg Capsule PO 0.4 mg DAILY ALEXANDER Administration Venlafaxine HCl 150 mg 03/19/22 09:00 03/19/22 09:47 Venlafaxine Hcl Er 150 Mg Cap.Er.24h PO 150 mg DAILY ALEXANDER Administration <Mikaela Hansen MD - Last Filed: 03/18/22 22:13> Medical Decision Making Medical Decision Making MDM Narrative: -NIH score difficult to calculate but overall seems to be 0, no gross neurological deficits -head CT negative, urinalysis negative, 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 Prieto -patient's daughter agrees with plan -sodium is 125, patient has history of chronic hyponatremia, sodium ranges between 124-129 <Mikaela Hansen MD - Last Filed: 03/18/22 22:13> Differential Diagnosis Differential Diagnoses: The differential diagnosis associated with the presentation includes (CVA, UTI, encephalopathy, dementia) <Mikaela Hansen MD - Last Filed: 03/18/22 22:13> Admission/Observation Consideration of admission/observation: Escalation of care including admission/observation considered (Patient has acute altered mental status) <Mikaela Hansen MD - Last Filed: 03/18/22 22:13> Consult Healthcare Provider Management of the patient was discussed with: Hospitalist (Dr. Prieto will admit the patient, we will get an MRI in the morning) <Mikaela Hansen MD - Last Filed: 03/18/22 22:13> Lab Data MDM Lab Attestation statement: I reviewed the patient's lab results. <Mikaela Hansen MD - Last Filed: 03/18/22 22:13> Result Diagrams: 03/18/22 18:33 03/18/22 18:33 <Liya Olivares CNP - Last Filed: 03/19/22 11:56> Labs: Lab Results 03/18/22 03/18/22 03/18/22 Range/Units 18:33 18:33 18:33 WBC 8.8 (4.8-10.8) X10*3/uL RBC 4.36 (4.20-5.50) X10*6/uL Hgb 14.9 (12.0-16.0) g/dl Hct 40.1 (37.0-47.0) % MCV 92.0 (80.0-98.0) fL MCH 34.2 H (27.0-33.0) pg MCHC 37.2 H (31.0-35.0) g/dl RDW 11.5 (11.0-16.0) % Plt Count 206 (160-400) X10*3/uL MPV 8.3 L (9.4-12.3) fL Immature Gran % (Auto) 0.3 (0.0-0.4) % Neut % (Auto) 81.9 H (45-73) % Lymph % (Auto) 10.6 L (20-40) % [place] % (Auto) 6.8 (2-11) % Eos % (Auto) 0.2 (0-4) % Baso % (Auto) 0.2 (0-2) % Lymph # (Auto) 0.9 L (1.2-4.9) X10*3/uL [place] # (Auto) 0.6 (0.1-1.2) X10*3/uL Eos # (Auto) 0.0 (0.0-0.4) X10*3/uL Baso # (Auto) 0.0 (0.0-0.2) X10*3/uL Abs Immat Gran (auto) 0.03 (0.00-0.03) X10*3/uL Absolute Neuts (auto) 7.2 (2.0-8.3) x10*3/uL Absolute Nucleated RBC 0.000 (0.0-0.012) X10*3/uL Nucleated RBC % (auto) 0.0 (0.0-0.2) /100WBC Sodium 125 L (135-145) mmol/L Potassium 4.3 (3.3-5.1) mmol/L Chloride 95 L (96-108) mmol/L Carbon Dioxide 20 L (22-29) mmol/L Anion Gap 14 (12-20) BUN 8 L (9-16) mg/dL Creatinine 0.54 (0.5-1.4) mg/dL Estim Creat Clear Calc 77.8 Estimated GFR > 60 Random Glucose 112 (60-115) mg/dL Calcium 8.3 L (8.4-10.2) mg/dL Total Bilirubin 0.5 (0.0-1.0) mg/dL AST 34 H (5-31) U/L ALT 25 (0-31) U/L Alkaline Phosphatase 101 (39-117) U/L Troponin I High Sens < 3.5 (<3.5-17.0) ng/L Total Protein 6.7 (6.5-8.0) g/dL Albumin 3.7 (3.5-5.0) g/dL Urine Color Urine Appearance Urine pH (5.0-9.0) Ur Specific [place] (1.005-1.025) Urine Protein (Neg-Trace) mg/dL Urine Glucose (UA) (Negative) mg/dL Urine Ketones (Negative) mg/dL Urine Blood (Negative) Urine Nitrite (Negative) Ur Leukocyte Esterase (Negative) Urine RBC (0-2) /HPF Urine WBC (0-5) /HPF Ur Squamous Epith Cells (0-2) /HPF Urine Bacteria (None Seen) Hyaline Casts (0-2) /LPF 03/18/22 Range/Units 20:32 WBC (4.8-10.8) X10*3/uL RBC (4.20-5.50) X10*6/uL Hgb (12.0-16.0) g/dl Hct (37.0-47.0) % MCV (80.0-98.0) fL MCH (27.0-33.0) pg MCHC (31.0-35.0) g/dl RDW (11.0-16.0) % Plt Count (160-400) X10*3/uL MPV (9.4-12.3) fL Immature Gran % (Auto) (0.0-0.4) % Neut % (Auto) (45-73) % Lymph % (Auto) (20-40) % [place] % (Auto) (2-11) % Eos % (Auto) (0-4) % Baso % (Auto) (0-2) % Lymph # (Auto) (1.2-4.9) X10*3/uL [place] # (Auto) (0.1-1.2) X10*3/uL Eos # (Auto) (0.0-0.4) X10*3/uL Baso # (Auto) (0.0-0.2) X10*3/uL Abs Immat Gran (auto) (0.00-0.03) X10*3/uL Absolute Neuts (auto) (2.0-8.3) x10*3/uL Absolute Nucleated RBC (0.0-0.012) X10*3/uL Nucleated RBC % (auto) (0.0-0.2) /100WBC Sodium (135-145) mmol/L Potassium (3.3-5.1) mmol/L Chloride (96-108) mmol/L Carbon Dioxide (22-29) mmol/L Anion Gap (12-20) BUN (9-16) mg/dL Creatinine (0.5-1.4) mg/dL Estim Creat Clear Calc Estimated GFR Random Glucose (60-115) mg/dL Calcium (8.4-10.2) mg/dL Total Bilirubin (0.0-1.0) mg/dL AST (5-31) U/L ALT (0-31) U/L Alkaline Phosphatase (39-117) U/L Troponin I High Sens (<3.5-17.0) ng/L Total Protein (6.5-8.0) g/dL Albumin (3.5-5.0) g/dL Urine Color Yellow Urine Appearance Clear Urine pH 7.0 (5.0-9.0) Ur Specific [place] 1.020 (1.005-1.025) Urine Protein Trace (Neg-Trace) mg/dL Urine Glucose (UA) Negative (Negative) mg/dL Urine Ketones Negative (Negative) mg/dL Urine Blood Negative (Negative) Urine Nitrite Negative (Negative) Ur Leukocyte Esterase Trace H (Negative) Urine RBC 0-2 (0-2) /HPF Urine WBC 0-5 (0-5) /HPF Ur Squamous Epith Cells 0-2 (0-2) /HPF Urine Bacteria None Seen (None Seen) Hyaline Casts 0-2 (0-2) /LPF <Liya Olivares, ANAHI - Last Filed: 03/19/22 11:56> Lab Results 03/18/22 03/18/22 03/18/22 Range/Units 18:33 18:33 18:33 WBC 8.8 (4.8-10.8) X10*3/uL RBC 4.36 (4.20-5.50) X10*6/uL Hgb 14.9 (12.0-16.0) g/dl Hct 40.1 (37.0-47.0) % MCV 92.0 (80.0-98.0) fL MCH 34.2 H (27.0-33.0) pg MCHC 37.2 H (31.0-35.0) g/dl RDW 11.5 (11.0-16.0) % Plt Count 206 (160-400) X10*3/uL MPV 8.3 L (9.4-12.3) fL Immature Gran % (Auto) 0.3 (0.0-0.4) % Neut % (Auto) 81.9 H (45-73) % Lymph % (Auto) 10.6 L (20-40) % [place] % (Auto) 6.8 (2-11) % Eos % (Auto) 0.2 (0-4) % Baso % (Auto) 0.2 (0-2) % Lymph # (Auto) 0.9 L (1.2-4.9) X10*3/uL [place] # (Auto) 0.6 (0.1-1.2) X10*3/uL Eos # (Auto) 0.0 (0.0-0.4) X10*3/uL Baso # (Auto) 0.0 (0.0-0.2) X10*3/uL Abs Immat Gran (auto) 0.03 (0.00-0.03) X10*3/uL Absolute Neuts (auto) 7.2 (2.0-8.3) x10*3/uL Absolute Nucleated RBC 0.000 (0.0-0.012) X10*3/uL Nucleated RBC % (auto) 0.0 (0.0-0.2) /100WBC Sodium 125 L (135-145) mmol/L Potassium 4.3 (3.3-5.1) mmol/L Chloride 95 L (96-108) mmol/L Carbon Dioxide 20 L (22-29) mmol/L Anion Gap 14 (12-20) BUN 8 L (9-16) mg/dL Creatinine 0.54 (0.5-1.4) mg/dL Estim Creat Clear Calc 77.8 Estimated GFR > 60 Random Glucose 112 (60-115) mg/dL Calcium 8.3 L (8.4-10.2) mg/dL Total Bilirubin 0.5 (0.0-1.0) mg/dL AST 34 H (5-31) U/L ALT 25 (0-31) U/L Alkaline Phosphatase 101 (39-117) U/L Troponin I High Sens < 3.5 (<3.5-17.0) ng/L Total Protein 6.7 (6.5-8.0) g/dL Albumin 3.7 (3.5-5.0) g/dL Urine Color Urine Appearance Urine pH (5.0-9.0) Ur Specific [place] (1.005-1.025) Urine Protein (Neg-Trace) mg/dL Urine Glucose (UA) (Negative) mg/dL Urine Ketones (Negative) mg/dL Urine Blood (Negative) Urine Nitrite (Negative) Ur Leukocyte Esterase (Negative) Urine RBC (0-2) /HPF Urine WBC (0-5) /HPF Ur Squamous Epith Cells (0-2) /HPF Urine Bacteria (None Seen) Hyaline Casts (0-2) /LPF 03/18/22 Range/Units 20:32 WBC (4.8-10.8) X10*3/uL RBC (4.20-5.50) X10*6/uL Hgb (12.0-16.0) g/dl Hct (37.0-47.0) % MCV (80.0-98.0) fL MCH (27.0-33.0) pg MCHC (31.0-35.0) g/dl RDW (11.0-16.0) % Plt Count (160-400) X10*3/uL MPV (9.4-12.3) fL Immature Gran % (Auto) (0.0-0.4) % Neut % (Auto) (45-73) % Lymph % (Auto) (20-40) % [place] % (Auto) (2-11) % Eos % (Auto) (0-4) % Baso % (Auto) (0-2) % Lymph # (Auto) (1.2-4.9) X10*3/uL [place] # (Auto) (0.1-1.2) X10*3/uL Eos # (Auto) (0.0-0.4) X10*3/uL Baso # (Auto) (0.0-0.2) X10*3/uL Abs Immat Gran (auto) (0.00-0.03) X10*3/uL Absolute Neuts (auto) (2.0-8.3) x10*3/uL Absolute Nucleated RBC (0.0-0.012) X10*3/uL Nucleated RBC % (auto) (0.0-0.2) /100WBC Sodium (135-145) mmol/L Potassium (3.3-5.1) mmol/L Chloride (96-108) mmol/L Carbon Dioxide (22-29) mmol/L Anion Gap (12-20) BUN (9-16) mg/dL Creatinine (0.5-1.4) mg/dL Estim Creat Clear Calc Estimated GFR Random Glucose (60-115) mg/dL Calcium (8.4-10.2) mg/dL Total Bilirubin (0.0-1.0) mg/dL AST (5-31) U/L ALT (0-31) U/L Alkaline Phosphatase (39-117) U/L Troponin I High Sens (<3.5-17.0) ng/L Total Protein (6.5-8.0) g/dL Albumin (3.5-5.0) g/dL Urine Color Yellow Urine Appearance Clear Urine pH 7.0 (5.0-9.0) Ur Specific [place] 1.020 (1.005-1.025) Urine Protein Trace (Neg-Trace) mg/dL Urine Glucose (UA) Negative (Negative) mg/dL Urine Ketones Negative (Negative) mg/dL Urine Blood Negative (Negative) Urine Nitrite Negative (Negative) Ur Leukocyte Esterase Trace H (Negative) Urine RBC 0-2 (0-2) /HPF Urine WBC 0-5 (0-5) /HPF Ur Squamous Epith Cells 0-2 (0-2) /HPF Urine Bacteria None Seen (None Seen) Hyaline Casts 0-2 (0-2) /LPF <Mikaela Hansen MD - Last Filed: 03/18/22 22:13> Independent Interpretation I performed an independent interpretation of an: CT Scan (My CT scan interpretation: No acute brain bleed) <Mikaela Hansen MD - Last Filed: 03/18/22 22:13> Radiology Impression Discussion of test interpretation with radiology: I have reviewed the radiologist's reading. <Mikaela Hansen MD - Last Filed: 03/18/22 22:13> Radiologist Impression: FINDINGS: There is no evidence of acute intracranial hemorrhage or edematous territorial infarction. No abnormal mass effect or midline shift is seen. [place] to white matter differentiation is well preserved. No extra-axial fluid collections are identified. Commensurate prominence of the ventricles and sulci is compatible with generalized parenchymal volume loss. There is patchy prominent periventricular and subcortical white matter hypoattenuation, nonspecific, more commonly seen representing microangiopathic disease . No acute calvarial fracture.. Paranasal sinuses and mastoid air cells are well-aerated. ? CT/CT head/brain wo IV con IMPRESSION: No CT evidence of acute intracranial hemorrhage or edematous large vessel territorial infarction. ? 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 ? Small infarcts may not be evident on the noncontrast CT. Etiology of patient's symptoms has not been determined. Further evaluation with CTA or MRI as clinically warranted. ? <Mikaela Hansen MD - Last Filed: 03/18/22 22:13> Critical Care Time Critical Care Time Critical Care Time: Yes <Mikaela Hansen MD - Last Filed: 03/18/22 22:13> Total Critical Care Time: 30 <Mikaela Hansen MD - Last Filed: 03/18/22 22:13> Attestation: I have personally provided critical care time. Time includes review of lab data, radiology results, discussion with consultants, and monitoring for potential decompensation. Intervention performed as documented. <Mikaela Hansen MD - Last Filed: 03/18/22 22:13> Discharge Plan Discharge Clinical Impression: Encephalopathy, Chronic hyponatremia <Liya Olivares CNP - Last Filed: 03/19/22 11:56> Patient Disposition: Admitted As Inpatient <Liya Olivares CNP - Last Filed: 03/19/22 11:56> Interventions: Admission Worksheet (ED) Last Done: 03/19/22 00:21 <Liya Olivares CNP - Last Filed: 03/19/22 11:56> Discharge Date/Time: 03/19/22 00:22 <Liya Olivares CNP - Last Filed: 03/19/22 11:56>
--- NOTE | 2022-03-18 18:22 | ECG_ITS ---
Test Reason : WEAKNESS Blood Pressure : / mmHG Vent. Rate : 073 BPM Atrial Rate : 073 BPM P-R Int : 194 ms QRS Dur : 072 ms QT Int : 372 ms P-R-T Axes : 041 031 052 degrees QTc Int : 409 ms Normal sinus rhythm Septal infarct , age undetermined Abnormal ECG When compared with ECG of 11-SEP-2018 12:11, [place] interval has decreased Referred By: Liya Olivares Electronically Signed By:LAUREN MCCRARY MD
--- OUTSIDE RECORDS SUMMARY | 2022-03-18 18:26 | XMS_ITS | Continuity of Care Document ---
:1940 Author Organization [facility] Adult Address [address] [place] [address]- Care Team Providers Name Role Phone Riley ASH, Rosa M Stone Primary Care Physician Encounter [facility] [place] Date(s): 04/01/21 - 05/01/21 [facility] Adult [address] [place] [address]- Allergies, Adverse Reactions, Alerts Substance Reaction Severity Status Dilantin Softing of gums Active Medications Aleve = 220 mg, By Mouth, Every 12 hours, 0 Refills, Maintenance, 09/07/20 16:24:00 EDT, Partial fill uponpatient request if the prescription is for a schedule II opioid drug. Start Date: 09/07/20 Status: Orderedaspirin 81 mg oral delayed release tablet 81 mg, 1, tablet, By Mouth, Daily, Refills 0, Maintenance, 09/07/20 16:23:00 EDT, Partial fill upon patient request if the prescription is for a schedule II opioid drug. Start Date: 09/07/20 Status: OrderedcarBAMazepine 200 mg oral tablet 600 mg, 3, tablet, By Mouth, 2 times a day, Refills 0, Maintenance, 09/07/20 16:20:00 EDT, Partial fill upon patient request if the prescription is for a schedule II opioid drug. Start Date: 09/07/20 Status: OrderedFish Oil 1200 mg oral capsule 1 capsule = 1,200 mg, By Mouth, Daily at bedtime, 0 Refills, Maintenance, 09/07/20 16:22:00 EDT, Partial fill upon patient request if the prescription is for a schedule II opioid drug. Start Date: 09/07/20 Status: OrderedLORazepam 1 mg oral tablet 0.5 tablet = 0.5 mg, By Mouth, Daily at bedtime, # 15 tablet, 2 Refills, Maintenance, 01/19/21 9:10:00 EST, Tablet, [facility], Partial fill upon patient request if the prescription is for a schedule II opioid drug., 159, cm, 09/07/20 16:15:0... Start Date: 01/19/21 Status: Orderedmelatonin 5 mg oral tablet 1 tablet = 5 mg, By Mouth, Daily at bedtime, 0 Refills, Maintenance, 09/07/20 16:22:00 EDT, Partial fill upon patient request if the prescription is for a schedule II opioid drug. Start Date: 09/07/20 Status: OrderedPHENobarbital 97.2 mg oral tablet 1 tablet = 97.2 mg, By Mouth, Daily, 0 Refills, Maintenance, 09/07/20 16:19:00 EDT, Partial fill upon patient request if the prescription is for a schedule II opioid drug. Start Date: 09/07/20 Status: Orderedsimvastatin 20 mg oral tablet 20 mg, 1, tablet, By Mouth, Daily at bedtime, # 90 tablet, Refills 3, Tot. Refills 3, Maintenance, 10/27/20 12:07:00 EDT, Route to Pharmacy Electronically, [facility], Partial fill upon patient request if the prescription is for a schedule II... Start Date: 10/27/20 Status: OrderedTrelegy Ellipta Inhalation, Daily, 0 Refills, Maintenance, 09/07/20 16:19:00 EDT, Partial fill upon patient request if the prescription is for a schedule II opioid drug. Start Date: 09/07/20 Status: OrderedTylenol 8 Hour Caplet = 1,300 mg, By Mouth, Every 8 hours, 0 Refills, Maintenance, 09/07/20 16:24:00 EDT, Partial fill upon patient request if the prescription is for a schedule II opioid drug. Start Date: 09/07/20 Status: Orderedvenlafaxine 150 mg oral capsule, extended release 150 mg, 1, capsule, By Mouth, Daily, # 90 capsule, Refills 3, Tot. Refills 3, Maintenance, 10/27/20 12:07:00 EDT, Route to Pharmacy Electronically, [facility], Partial fill upon patient request if the prescription is for a schedule II opioid... Start Date: 10/27/20 Status: OrderedVitamin D3 1000 intl units oral tablet = 25 mcg, By Mouth, Daily at bedtime, 0 Refills, Maintenance, 09/07/20 16:23:00 EDT, Partial fill upon patient request if the prescription is for a schedule II opioid drug. Start Date: 09/07/20 Status: Ordered Problem List Condition Effective Dates Status Health Status Informant Centrilobular emphysema(Confirmed) Active Epilepsy(Confirmed) Active Frontotemporal dementia(Confirmed) Active Long-term use of high-risk medication Active -barbiturates(Confirmed) Mild major depression(Confirmed) Active Social History Social History Type Response Smoking Status Former smoker, quit more ricky n 30 days ago; Use: Quit 2006 entered on: 09/07/20 Sex
--- OUTSIDE RECORDS SUMMARY | 2022-03-18 18:26 | XMS_ITS | Continuity of Care Document ---
:1940 Author Organization [facility] Adult Address [address] [place] [address]- Care Team Providers Name Role Phone Dennis MARCELO, Beto Mccartney Primary Care Physician [place] [facility] [place] 02/18/21 - 03/20/21 [facility] Adult [address] [place] [address]- Allergies, Adverse Reactions, Alerts Substance Reaction Severity [...] 10/27/20 12:07:00 EDT, Route to Pharmacy Electronically, [facility], Partial fill upon [...] 10/27/20 12:07:00 EDT, Route to Pharmacy Electronically, [facility], Partial fill upon [...] Response Smoking Status Former smoker, quit more rciky n 30 days ago; Use: Quit 2006 entered on: 09/07/20 Sex
--- OUTSIDE RECORDS SUMMARY | 2022-03-18 18:26 | XMS_ITS | Continuity of Care Document ---
:[address] [facility] Adult Address [address] [place] [address]- Care Team Providers Name Role Phone Riley ASH, Rosa M Stone Primary Care Physician Encounter [id number] Date(s): 11/05/21 - 12/05/21 [facility] Adult [address] [place] [address]- Allergies, Adverse Reactions, Alerts Substance Reaction Severity [...] Orderedvenlafaxine 150 mg oral capsule, extended release 1 capsule, By Mouth, Daily, # 90 capsule, 3 Refills, [facility], 159, cm, 09/07/20 16:15:00EDT, Height Start Date: 08/31/21 Status: OrderedVitamin D3 1000 intl units oral tablet = 25 mcg, By Mouth, Daily at bedtime, 0 Refills, Maintenance, 09/07/20 16:23:00 EDT, Partial fill upon patient request if the prescription is for a schedule II opioid drug. Start Date: 09/07/20 Status: Ordered Problem List Condition Confirmation Course Effective Dates Status Health I nformant Status Centrilobular Confirmed Active emphysema Epilepsy Confirmed Active Frontotemporal Confirmed Active dementia Long-term use of Confirmed Active high-risk medication -barbiturates Mild major depression Confirmed Active Social History Social History Type Response Smoking Status Former smoker, quit more ricky n 30 days ago; Use: Quit 2006 entered on: 09/07/20 Sex Patient Care team information PersonnelName: Rosa M Lin NP Address: Address: [address] [place] [address]
--- OUTSIDE RECORDS SUMMARY | 2022-03-18 18:26 | XMS_ITS | Continuity of Care Document ---
:1940 Author Organization [facility] Adult Address [address] [place] [address]- Care Team Providers Name Role Phone Beto Collins MD Primary Care Physician Encounter [facility] [place] Date(s): 09/07/20 - 10/07/20 [facility] Adult [address] [place] [address]- Attending Physician: Julia Pennington Admitting Physician: Admtr, [id number] Referring Physician: Admtr, [id number] Allergies, Adverse Reactions, Alerts Substance Reaction Severity [...] 0.5 mg, By Mouth, Daily at bedtime, 0 Refills, Maintenance, 09/07/20 16:21:00 EDT, Partial fill upon patient request if the prescription is for a schedule II opioid drug. Start Date: 09/07/20 Status: Orderedmelatonin 5 mg oral tablet 1 [...] 1, tablet, By Mouth, Daily at bedtime, Refills 0, Maintenance, 09/07/20 16:21:00 EDT, Partialfill upon patient request if the prescription is for a schedule II opioid drug. Start Date: 09/07/20 Status: OrderedTrelegy Ellipta Inhalation, Daily, 0 Refills, [...] 150 mg, 1, capsule, By Mouth, Daily, Refills 0, Maintenance, 09/07/20 16:22:00 EDT, Partial fill upon patient request if the prescription is for a schedule II opioid drug. Start Date: 09/07/20 Status: OrderedVitamin D3 1000 intl units oral tablet = 25 mcg, By Mouth, Daily at bedtime, 0 Refills, Maintenance, 09/07/20 16:23:00 EDT, Partial fill upon patient request if the prescription is for a schedule II opioid drug. Start Date: 09/07/20 Status: Ordered Problem List Condition Effective Dates Status Health Status Informant Epilepsy(Confirmed) Active Frontotemporal dementia(Confirmed) Active Long-term use of high-risk medication Active -barbiturates(Confirmed) Mild major depression(Confirmed) Active Social History Social History Type Response Smoking Status Former smoker, quit more ricky n 30 days ago; Use: Quit 2006 entered on: 09/07/20 Sex
--- OUTSIDE RECORDS SUMMARY | 2022-03-18 18:26 | XMS_ITS | Continuity of Care Document ---
:1940 Author Organization [facility] Adult Address [address] [place] [address]- Care Team Providers Name Role Phone Dennis MARCELO, Beto Mccartney Primary Care Physician Encounter [facility] [place] Date(s): 02/12/21 - 03/14/21 [facility] Adult [address] [place] [address]- Allergies, Adverse Reactions, Alerts Substance Reaction Severity [...] 10/27/20 12:07:00 EDT, Route to Pharmacy Electronically, [facility], Partial fill upon [...] 10/27/20 12:07:00 EDT, Route to Pharmacy Electronically, [facility], Partial fill upon [...]
--- OUTSIDE RECORDS SUMMARY | 2022-03-18 18:26 | XMS_ITS | Continuity of Care Document ---
:1940 Author Organization [facility] Adult Address [address] [place] [address]- Care Team Providers Name Role Phone Dennis MARCELO, Beto Mccartney Primary Care Physician Encounter [facility] [place] Date(s): 02/17/21 - 03/19/21 [facility] Adult [address] [place] [address]- Allergies, Adverse Reactions, Alerts Substance Reaction Severity [...] 10/27/20 12:07:00 EDT, Route to Pharmacy Electronically, [facility], Partial fill upon [...] 10/27/20 12:07:00 EDT, Route to Pharmacy Electronically, [facility], Partial fill upon [...]
--- OUTSIDE RECORDS SUMMARY | 2022-03-18 18:26 | XMS_ITS | Continuity of Care Document ---
:1940 Author Organization [facility] Adult Address [address] [place] [address]- Care Team Providers Name Role Phone Riley ASH, Rosa M Stone Primary Care Physician [place] [facility] [place]21 - 05/02/21 [facility] Adult [address] [place] [address]- Allergies, Adverse Reactions, Alerts Substance Reaction Severity [...]
--- OUTSIDE RECORDS SUMMARY | 2022-03-18 18:26 | XMS_ITS | Continuity of Care Document ---
:1940 Author Organization [facility] Adult Address [address] [place] [address]- Care Team Providers Name Role Phone Riley ASH, Rosa M Stone Primary Care Physician Encounter [facility] [place] Date(s): 04/02/21 - 05/02/21 [facility] Adult [address] [place] [address]- Allergies, Adverse Reactions, Alerts Substance Reaction Severity [...]
--- OUTSIDE RECORDS SUMMARY | 2022-03-18 18:26 | XMS_ITS | Continuity of Care Document ---
:1940 Author Organization [facility] Adult Address [address] [place] [address]- Care Team Providers Name Role Phone Dennis MARCELO, Beto Mccartney Primary Care Physician Encounter [facility] [place] Date(s): 09/08/20 - 10/08/20 [facility] Adult [address] [place] [address]- Allergies, Adverse Reactions, Alerts Substance Reaction Severity [...]
--- OUTSIDE RECORDS SUMMARY | 2022-03-18 18:26 | XMS_ITS | Continuity of Care Document ---
:1940 Author Organization [facility] Adult Address [address] [place] [address]- Care Team Providers Name Role Phone Dennis MARCELO, Beto Mccartney Primary Care Physician [place] [facility] [place](s): 11/10/20 - 12/10/20 [facility] Adult [address] [place] [address]- Allergies, Adverse Reactions, Alerts Substance Reaction Severity [...] bedtime, # 15 tablet, 2 Refills, Maintenance, 10/16/20 16:26:00 EDT, Tablet, [facility], Partial fill upon patient request if the prescription is for a schedule II opioid drug., 159, cm, 09/07/20 16:15:... Start Date: 10/16/20 Status: Orderedmelatonin 5 mg oral tablet 1 [...]
--- OUTSIDE RECORDS SUMMARY | 2022-03-18 18:26 | XMS_ITS | Continuity of Care Document ---
:1940 Author Organization [facility] Adult Address [address] [place] [address]- Care Team Providers Name Role Phone Riley ASH, Rosa M Stone Primary Care Physician Encounter [facility] [place] Date(s): 04/02/21 - 05/02/21 [facility] Adult [address] [place] [address]- Allergies, Adverse Reactions, Alerts Substance Reaction Severity [...]
--- OUTSIDE RECORDS SUMMARY | 2022-03-18 18:27 | XMS_ITS | Continuity of Care Document ---
:1940 Author Organization [facility] Address [address] [facility], [address] [address]- Care Team Providers Name Role Phone Dennis MARCELO, Beto Mccartney Primary Care Physician Encounter 02/18/21 - 02/25/21 [facility] [address], [address] [address]- Attending Physician: Beto Collins MD Admitting Physician: Beto Collins MD Referring Physician: Beto Collins MD Allergies, Adverse Reactions, Alerts Substance Reaction Severity [...] 2 Refills, Maintenance, 01/19/21 9:10:00 EST, Tablet, [facility] # [facility], Partial fill upon patient [...] 10/27/20 12:07:00 EDT, Route to Pharmacy Electronically, [facility] # [facility], Partial fill upon patient [...] 10/27/20 12:07:00 EDT, Route to Pharmacy Electronically, [facility] # [facility], Partial fill upon patient [...]
--- OUTSIDE RECORDS SUMMARY | 2022-03-18 18:27 | XMS_ITS | Continuity of Care Document ---
:1940 Author Organization [facility] Adult Address [address] [place] [address]- Care Team Providers Name Role Phone Beto Collins MD Primary Care Physician [place] [facility] [place](s): 09/07/20 - 09/14/20 [facility] Adult [address] [place] [address]- Encounter Diagnosis Mild major depression (Discharge Diagnosis) - 09/07/20 Frontotemporal dementia (Discharge Diagnosis) - 09/07/20 Epilepsy (Discharge Diagnosis) - 09/07/20 Long-term use of high-risk medication -barbiturates (Discharge Diagnosis) - 09/07/20 Hematuria (Discharge Diagnosis) - 09/07/20 Change in behavior (Discharge Diagnosis) - 09/07/20 Attending Physician: Beto Collins MD Allergies, Adverse Reactions, [...] II opioid drug. Start Date: 09/07/20 Status: OrderedMacrobid macrocrystals-monohydrate 100 mg oral capsule 1 capsule = 100 mg, By Mouth, 2 times a day, for 10 days, # 20 capsule, 0 Refills, Acute 09/17/20 16:45:00 EDT, 09/07/20 16:45:00 EDT, Capsule, [facility], Partial fill upon patient request ifthe prescription is for a schedule II opioid drug... Start Date: 09/07/20 Stop Date: 09/17/20 Status: Orderedmelatonin 5 mg oral tablet 1 [...] medication Active -barbiturates(Confirmed) Mild major depression(Confirmed) Active Diagnosis Diagnosis Type Effective Dates Health Clinical Infor mant Status Service Mild major Discharge 09/07/20 depression Diagnosis Frontotemporal Discharge 09/07/20 dementia Diagnosis Epilepsy Discharge 09/07/20 Diagnosis Long-term use of Discharge 09/07/20 Non-Specified high-risk medication Diagnosis -barbiturates Hematuria Discharge 09/07/20 Diagnosis Change in behavior Discharge 09/07/20 Diagnosis Vital Signs Most recent to oldest [Reference Range]: 1 Height 159.0 cm (09/07/20 4:15 PM) Weight 65.0 kg (09/07/20 4:15 PM) Body Mass Index [18.5-24.99] 25.71 *H* (09/07/20 4:15 PM) Weight Obtained Via Standing scale (09/07/20 4:15 PM) Social History Social History Type Response Smoking Status Former smoker, quit more ricky n 30 days ago; Use: Quit 2006 entered on: 09/07/20 Sex
--- OUTSIDE RECORDS SUMMARY | 2022-03-18 18:27 | XMS_ITS | Continuity of Care Document ---
:1940 Author Organization [facility] Adult Address [address] [place] [address]- Care Team Providers Name Role Phone Dennis MARCELO, Beto Mccartney Primary Care Physician Encounter [facility] [place] Date(s): 02/24/21 - 03/26/21 [facility] Adult [address] [place] [address]- Allergies, Adverse Reactions, Alerts Substance Reaction Severity [...] 10/27/20 12:07:00 EDT, Route to Pharmacy Electronically, [facility], Partial fill upon [...] 10/27/20 12:07:00 EDT, Route to Pharmacy Electronically, [facility], Partial fill upon [...]
--- OUTSIDE RECORDS SUMMARY | 2022-03-18 18:27 | XMS_ITS | Continuity of Care Document ---
:1940 Author Organization [facility] Adult Address [address] [place] [address]- Care Team Providers Name Role Phone Dennis MARCELO, Beto Mccartney Primary Care Physician Encounter [facility] [place] Date(s): 10/15/20 - 11/14/20 [facility] Adult [address] [place] [address]- Allergies, Adverse Reactions, Alerts Substance Reaction Severity [...]
--- OUTSIDE RECORDS SUMMARY | 2022-03-18 18:27 | XMS_ITS | Continuity of Care Document ---
:1940 Author Organization [facility] Adult Address [address] [place] [address]- Care Team Providers Name Role Phone Dennis MARCELO, Beto Mccartney Primary Care Physician Encounter [facility] [place] Date(s): 10/27/20 - 11/26/20 [facility] Adult [address] [place] [address]- Allergies, Adverse Reactions, Alerts Substance Reaction Severity [...]
--- OUTSIDE RECORDS SUMMARY | 2022-03-18 18:27 | XMS_ITS | Continuity of Care Document ---
:1940 Author Organization [facility] Adult Address [address] [place] [address]- Care Team Providers Name Role Phone Riley ASH, Rosa M Stone Primary Care Physician [place] [facility] [place] Date(s): 05/07/21 - 06/06/21 [facility] [place] Adult [address] [place] [address]- Allergies, Adverse Reactions, Alerts Substance Reaction Severity [...]
--- NOTE | 2022-03-18 18:37 | PC.NURSE ---
81 y/o F with hx of dementia, COPD, and seizures pw increased confusion and weakness since yesterday. recently diagnosed with COVID last week. pt is aox1 baseline. VSS at this time, iV in place, labs drawn and sent, EKG done, pt in gown and on monitor, awaiting further recs
[2022-03-18 18:39] LABS: MANUAL DIFF FLAG NO
[2022-03-18 18:40] LABS: Basophils Percent Auto 0.2 % (0-2); Eosinophils Percent Auto 0.2 % (0-4); Hematocrit 40.1 % (37.0-47.0); Hemoglobin 14.9 g/dl (12.0-16.0); Imm Gran Abs Auto 0.03 X10*3/uL (0.00-0.03); Imm Gran Pct Auto 0.3 % (0.0-0.4); Lymphocytes Absolute Auto 0.9 X10*3/uL (1.2-4.9); Lymphocytes Percent Auto 10.6 % (20-40); Mean Corpuscular HGB Conc 37.2 g/dl (31.0-35.0); Mean Corpuscular Hemoglobin 34.2 pg (27.0-33.0); Mean Platelet Volume 8.3 fL (9.4-12.3); Monocytes Absolute Auto 0.6 X10*3/uL (0.1-1.2); Monocytes Percent Auto 6.8 % (2-11); Neutrophils Absolute Auto 7.2 x10*3/uL (2.0-8.3); Neutrophils Percent Auto 81.9 % (45-73); Platelet Count 206 X10*3/uL (160-400); Red Blood Count 4.36 X10*6/uL (4.20-5.50); Red Cell Distribution Width 11.5 % (11.0-16.0); White Blood Count 8.8 X10*3/uL (4.8-10.8)
[2022-03-18 19:02] LABS: Alanine Aminotransferase 25 U/L (0-31); Albumin Level 3.7 g/dL (3.5-5.0); Alkaline Phosphatase 101 U/L (39-117); Anion Gap 14 (12-20); Aspartate Amino Transferase 34 U/L (5-31); Bilirubin Total 0.5 mg/dL (0.0-1.0); Blood Urea Nitrogen 8 mg/dL (9-16); Calcium 8.3 mg/dL (8.4-10.2); Carbon Dioxide 20 mmol/L (22-29); Chloride 95 mmol/L (96-108); Creatinine Clr Calc Pharmacy 77.8; Estimated Glomerular Filt Rate > 60; Glucose Random 112 mg/dL (60-115); Potassium 4.3 mmol/L (3.3-5.1); Sodium 125 mmol/L (135-145); Total Protein 6.7 g/dL (6.5-8.0)
[2022-03-18 19:11] LABS: Troponin-I High Sensitivity < 3.5 ng/L (<3.5-17.0)
[2022-03-18 20:38] LABS: Appearance Urine Clear; Color Urine Yellow; Glucose Urine UA Negative (Negative); Leukocyte Esterase Urine Trace (Negative); Nitrite Urine Negative (Negative); UMIC TRIGGER UACC YES; Urine Blood Negative (Negative); Urine Ketones Negative (Negative); Urine Protein Trace mg/dL (Neg-Trace)
[2022-03-18 20:43] LABS: Bacteria Urine None Seen (None Seen); Hyaline Casts Urine 0-2 /LPF (0-2); RBC Urine 0-2 /HPF (0-2); Squamous Epithelial Cell Urine 0-2 /HPF (0-2); WBC Urine 0-5 /HPF (0-5)
[2022-03-18 21:43] VITALS: BP 147/67; PULSE 68; RESP 19; O2SAT 100
--- NOTE | 2022-03-18 22:18 | PM.IMHP ---
History of Present Illness Date of Service: 03/18/22 Chief Complaint: Slurred speech This is a 81-year-old female with pertinent history of seizure disorder, mood disorder, urinary incontinence, chronic hyponatremia, COPD, unspecified dementia who was brought to the emergency department for evaluation transient slurred speech. Most of the history was obtained by daughter at bedside. She stated that on the day of presentation, patient had slow speech that lasted for about 2 hours. It was associated with confusion, worse than baseline and unsteadiness of gait. Patient does have dementia and confusion at baseline but on the day of presentation it was worse than usual. No jerking movement of extremities, no tongue bite, no weakness of extremities, no facial droop, no loss of consciousness. The daughter denied fever, chills, nausea, vomiting, diarrhea, abdominal pain, changes in urinary or bowel habits. Patient was diagnosed with COVID-19 about a week ago and has been on Paxlovid. Patient is compliant with medications for chronic medical conditions and daughter his caregiver. Patient denies any complaints at the time of my evaluation. In the emergency department, sodium noted to be 125 Review of Systems Constitutional: Constitutional: Reports no additional constitutional complaints Cardiovascular: Cardiovascular: Reports no additional cardiovascular complaints Respiratory: Respiratory: Reports no additional respiratory complaints Gastrointestinal: Gastrointestinal: Reports no additional gastrointestinal complaints Genitourinary: Genitourinary: Reports no additional female genitourinary complaints Neurologic: Reports Abnormal speech present, Reports behavioral changes and Reports confusion Psychiatric: Psychiatric: Reports behavioral changes and Reports confusion [facility] Medical History Anxiety, generalized Chronic hyponatremia COPD, moderate Epilepsy Hematuria Osteoarthritis of right shoulder Right shoulder pain Family History Maternal Grandmother Stomach cancer Sister Breast cancer Surgical History History of appendectomy History of cataract surgery History of cholecystectomy Social History Housing: House Alcohol intake: never Patient Tobacco Use Status: Former Tobacco user e-Cigarette/Vaping Use: Never Used Advance Directives: No Advance Directives Information Provided: Yes Current occupational status: disabled Current occupation: right handed Cognitive needs: No Hearing needs: Yes Vision needs: Yes Meds Allergies Allergy/AdvReac Type Severity Reaction Status Date / Time divalproex sodium Allergy Unknown UNKNOWN Verified 11/19/21 08:40 [From DEPAKOTE] phenytoin [Dilantin] Allergy Unknown unk Verified 11/19/21 08:40 Active Medications: Current Medications Acetaminophen (Acetaminophen 325 Mg Tablet) 650 mg PO Q6H PRN PRN Reason: Pain, Mild (Pain Scale 1-3) Enoxaparin Sodium (Enoxaparin Sodium 40 Mg/0.4 Ml Syringe) 40 mg SUBCUT Q24H [facility] Melatonin (Melatonin 3 Mg Tablet) 6 mg PO BEDTIME PRN PRN Reason: Insomnia Ondansetron HCl (Ondansetron Hcl 4 Mg/2 Ml Vial) 4 mg IVPUSH Q8H PRN PRN Reason: Nausea and Vomiting Pharmacy Consult (Consult Rx Perform Med Rec) 1 each MISCELLANE ONCE PRN PRN Reason: Consult order Sodium Chloride (0.9 % Sodium Chloride Flush 3 Ml Syringe) 3 ml IVFLUSH QSHIFT [facility] Home Medications Medication Instructions Recorded Confirmed Last Taken Type melatonin 5 mg capsule 5 mg PO BEDTIME 07/13/20 03/18/22 Unknown History omega-3 fatty acids 1,000 mg 1,000 mg PO DAILY 07/13/20 03/18/22 03/18/22 History capsule (Fish Oil Concentrate) phenobarbital 97.2 mg tablet 97.2 mg PO BEDTIME 07/13/20 03/18/22 03/17/22 History aspirin 81 mg tablet,delayed 81 mg PO DAILY 04/08/21 03/18/22 03/18/22 History release cholecalciferol (vitamin D3) 25 25 mcg PO DAILY 04/09/21 03/18/22 03/18/22 History mcg (1,000 unit) capsule acetaminophen 500 mg tablet 1,000 mg PO BID 06/16/21 03/18/22 Unknown History (Tylenol Extra Strength) carbamazepine 200 mg tablet 3 tab PO BID 03/18/22 03/18/22 03/18/22 09:00 History tamsulosin 0.4 mg capsule (Flomax) 0.4 mg PO DAILY urinary retetion 03/18/22 03/18/22 03/18/22 History Physical Exam Vital Signs and Narrative: Vital Signs: Last Vital Signs Temp 97.6 F 03/18/22 18:15 Pulse 68 03/18/22 21:43 Resp 19 03/18/22 21:43 BP 147/67 H 03/18/22 21:43 Pulse Ox 100 03/18/22 21:43 O2 Del Method 03/18/22 21:43 BMI result Body Mass Index 28.5 Elderly female lying in bed in no distress Neck supple, no JVD Regular rate and rhythm, S1-S2 heard Regular breath sounds bilaterally, no wheezing or crackles appreciated Abdomen soft nontender, no guarding, no rigidity Patient is awake, alert and oriented to self, place, and person ; disoriented to time, no aphasia/dysarthria, strength equal in bilateral upper and lower extremities, no facial droop, tongue and uvula midline Psych: Normal mood No pedal edema Const: General: confusion Orientation/consciousness: confusion Neuro: General: confusion Speech: Abnormal speech present Results Labs 03/18/22 18:33 03/18/22 18:33 Labs: Laboratory Results - last 24 hr 03/18/22 03/18/22 03/18/22 18:33 18:33 18:33 MCV 92.0 MCH 34.2 H MCHC 37.2 H RDW 11.5 Plt Count 206 MPV 8.3 L Immature Gran % (Auto) 0.3 Neut % (Auto) 81.9 H Lymph % (Auto) 10.6 L [place] % (Auto) 6.8 Eos % (Auto) 0.2 Baso % (Auto) 0.2 Lymph # (Auto) 0.9 L [place] # (Auto) 0.6 Eos # (Auto) 0.0 Baso # (Auto) 0.0 Abs Immat Gran (auto) 0.03 Absolute Neuts (auto) 7.2 Absolute Nucleated RBC 0.000 Nucleated RBC % (auto) 0.0 Anion Gap 14 Estim Creat Clear Calc 77.8 Estimated GFR > 60 Random Glucose 112 Calcium 8.3 L Total Bilirubin 0.5 AST 34 H ALT 25 Alkaline Phosphatase 101 Troponin I High Sens < 3.5 Total Protein 6.7 Albumin 3.7 Urine Color Urine Appearance Urine pH Ur Specific [place] Urine Protein Urine Glucose (UA) Urine Ketones Urine Blood Urine Nitrite Ur Leukocyte Esterase Urine RBC Urine WBC Ur Squamous Epith Cells Urine Bacteria Hyaline Casts 03/18/22 20:32 MCV MCH MCHC RDW Plt Count MPV Immature Gran % (Auto) Neut % (Auto) Lymph % (Auto) [place] % (Auto) Eos % (Auto) Baso % (Auto) Lymph # (Auto) [place] # (Auto) Eos # (Auto) Baso # (Auto) Abs Immat Gran (auto) Absolute Neuts (auto) Absolute Nucleated RBC Nucleated RBC % (auto) Anion Gap Estim Creat Clear Calc Estimated GFR Random Glucose Calcium Total Bilirubin AST ALT Alkaline Phosphatase Troponin I High Sens Total Protein Albumin Urine Color Yellow Urine Appearance Clear Urine pH 7.0 Ur Specific [place] 1.020 Urine Protein Trace Urine Glucose (UA) Negative Urine Ketones Negative Urine Blood Negative Urine Nitrite Negative Ur Leukocyte Esterase Trace H Urine RBC 0-2 Urine WBC 0-5 Ur Squamous Epith Cells 0-2 Urine Bacteria None Seen Hyaline Casts 0-2 Imaging Radiologist's Impressions: Impressions Chest X-Ray 03/18/22 18:59 IMPRESSION: No findings of atypical infection grossly. No pneumonia. Head CT 03/18/22 19:03 IMPRESSION: No CT evidence of acute intracranial hemorrhage or edematous large vessel territorial infarction. 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 Small infarcts may not be evident on the noncontrast CT. Etiology of patient's symptoms has not been determined. Further evaluation with CTA or MRI as clinically warranted. Assessment and Plan (1) Dysarthria: Status: Acute (2) Encephalopathy: Status: Acute (3) Chronic hyponatremia: Status: Acute Plan This is a 81-year-old female with pertinent history of seizure disorder, mood disorder, urinary incontinence, chronic hyponatremia, COPD, unspecified dementia who was brought to the emergency department for evaluation transient slurred speech. #. Transient slurred speech, ataxia and confusion: Will admit patient with registered nurse cardiac. Obtaining MRI to rule out CVA. Consulting Neurology, appreciate assistance. Differentials include COVID-19 encephalopathy and symptoms due to hyponatremia. #. Chronic hyponatremia: Unclear etiology. Obtaining serum osmolality, urine sodium and urine osmolality. Likely due to carbamazepine and venlafaxine. Consider alternative medicines if hyponatremia due to SIADH. #. Seizure disorder: On phenobarb and carbamazepine #. Mood disorder: On venlafaxine #. Urinary incontinence: On Flomax #. COPD: No exacerbation on admission. Continue home inhaler #. COVID-19 infection: No hypoxemia and hence no indication for Decadron. DVT prophylaxis: Lovenox 40 mg daily Full code. Discussed with daughter at bedside Diet: Regular diet after bedside swallow study Time Spent With Patient Time: Total time managing care of this patient today ____ minutes. Quality Stroke Does the patient have a stroke diagnosis?: No VTE Prior VTE?: No VTE Risk Level:: Medical - moderate - high VTE Device Contraindication: Treatment Not Indicated VTE Drug Contraindication: N/A - Med Ordered
--- NOTE | 2022-03-18 22:19 | PHA.MEDREC ---
Pharmacy Consult ? Medication Reconciliation Pharmacy has completed the medication reconciliation. Pt's daughter Jannie at bedside with rx bottles, noted she has two doses left of her paxlovid (tonight and tomorrow AM)
[2022-03-18 22:29] LABS: COVID-19 Test Positive (Negative); IDNOW Serial# 9DB6401D
[2022-03-18 22:44] LABS: Cholesterol 211 mg/dL; HDL Cholesterol 53 mg/dL; LDL Cholesterol Calculated 138 mg/dl; Triglycerides 101 mg/dL
[2022-03-18] MEDS: Melatonin 3 MG TABLET 6 MG PO (22:52)
[2022-03-18] MEDS: Enoxaparin Sodium 40 MG/0.4 ML SYRINGE SUBCUT (22:53)
[2022-03-18 23:00] VITALS: BP 160/78; PULSE 70; RESP 22; TEMP 36.6; O2SAT 98
[2022-03-18 23:01] LABS: IDNOW Serial# 16C4AD1C; Influenza A Negative (Negative); Influenza B2 Negative (Negative)
[2022-03-18 23:04] LABS: Osmolality, Serum 267 mosm/kg (281-305)
[2022-03-18] MEDS: carBAMazepine 200 MG TABLET 600 MG PO (23:12)
[2022-03-18] MEDS: 0.9 % Sodium Chloride Flush 3 ML SYRINGE IVFLUSH (23:12)
[2022-03-18 23:45] LABS: Osmolality Urine 376 mosm/kg (373-1093)
[2022-03-19] VITALS: BP 142/66; PULSE 66; RESP 16; TEMP 36.7; O2SAT 97
--- NOTE | 2022-03-19 00:15 | PC.NURSE ---
RN to RN report given to CORINNA Schilling. Pt being transferred to room 472. Pt and daughter aware.
[2022-03-19 00:49] VITALS: BMI 28.3
[2022-03-19 04:00] VITALS: BP 146/70; PULSE 70; RESP 16; TEMP 36.8; O2SAT 96
[2022-03-19 05:08] LABS: Estimated Average Glucose 100 mg/dL; Hemoglobin A1c % 5.1 %
[2022-03-19 06:40] LABS: MANUAL DIFF FLAG NO
[2022-03-19 06:44] LABS: Basophils Percent Auto 0.4 % (0-2); Eosinophils Absolute Auto 0.1 X10*3/uL (0.0-0.4); Hematocrit 39.6 % (37.0-47.0); Hemoglobin 14.3 g/dl (12.0-16.0); Imm Gran Abs Auto 0.02 X10*3/uL (0.00-0.03); Imm Gran Pct Auto 0.4 % (0.0-0.4); Lymphocytes Absolute Auto 1.2 X10*3/uL (1.2-4.9); Lymphocytes Percent Auto 24.3 % (20-40); Mean Corpuscular HGB Conc 36.1 g/dl (31.0-35.0); Mean Corpuscular Hemoglobin 34.1 pg (27.0-33.0); Mean Corpuscular Volume 94.5 fL (80.0-98.0); Mean Platelet Volume 8.1 fL (9.4-12.3); Monocytes Absolute Auto 0.5 X10*3/uL (0.1-1.2); Monocytes Percent Auto 10.6 % (2-11); Neutrophils Absolute Auto 3.1 x10*3/uL (2.0-8.3); Neutrophils Percent Auto 63.3 % (45-73); Platelet Count 188 X10*3/uL (160-400); Red Blood Count 4.19 X10*6/uL (4.20-5.50); Red Cell Distribution Width 11.8 % (11.0-16.0); White Blood Count 4.8 X10*3/uL (4.8-10.8)
[2022-03-19 06:56] LABS: Anion Gap 12 (12-20); Blood Urea Nitrogen 6 mg/dL (9-16); Calcium 8.3 mg/dL (8.4-10.2); Carbon Dioxide 24 mmol/L (22-29); Chloride 95 mmol/L (96-108); Creatinine Clr Calc Pharmacy 72.2; Estimated Glomerular Filt Rate > 60; Glucose Random 109 mg/dL (60-115); Sodium 127 mmol/L (135-145)
[2022-03-19 07:37] VITALS: BP 140/67; PULSE 65; RESP 16; TEMP 36.1; O2SAT 98
[2022-03-19] MEDS: Venlafaxine HCl ER 150 MG CAP.ER.24H PO (09:47)
[2022-03-19] MEDS: Acetaminophen 325 MG TABLET 975 MG PO (09:47)
[2022-03-19] MEDS: 0.9 % Sodium Chloride Flush 3 ML SYRINGE IVFLUSH (09:48)
[2022-03-19] MEDS: Aspirin Enteric Coated 81 MG TABLET.DR PO (09:48)
[2022-03-19] MEDS: Tamsulosin HCL 0.4 MG CAPSULE PO (09:48)
[2022-03-19] MEDS: carBAMazepine 200 MG TABLET 600 MG PO (09:48)
[2022-03-19 11:30] VITALS: BP 140/70; PULSE 75; RESP 18; TEMP 36.4; O2SAT 98
--- NOTE | 2022-03-19 11:40 | P.PNIM_ITS ---
Subjective Subjective Date of Service: 03/19/22 Interval History: Patient awake alert aware of place person, speech is clear, offers no acute complaints, tolerating diet feeding herself, daughter at bedside feels patient is at her baseline. Review of Systems General no headache, no dizziness no fever chills. CVS no chest pain, no palpitation. Respiratory no cough, no sob Gastrointestinal no nausea, no vomiting, no abdominal pain Review of Systems: Yes all other systems are reviewed and are negative Physical Exam Vital Signs: Vital Signs: Last Vital Signs Temp 97.5 F 03/19/22 11:30 Pulse 75 03/19/22 11:30 Resp 18 03/19/22 11:30 BP 140/70 H 03/19/22 11:30 Pulse Ox 98 03/19/22 11:30 O2 Del Method 03/19/22 11:30 BMI result Body Mass Index 28.3 Const: Other: General sitting comfortably on bed, in no acute distress. Neck supple no JVD. CVS regular rate rhythm, Respiratory lungs clear to auscultation, no respiratory distress, no wheeze, no rhonchi. Gastrointestinal abdomen soft, nontender, bowel sounds audible Extremities no edema. Neuro nonfocal, moving all 4 extremity, speech clear, face symmetrical. Skin no rash Objective Data Active Medications Acetaminophen (Acetaminophen 325 Mg Tablet) 650 mg PO Q6H PRN PRN Reason: Pain, Mild (Pain Scale 1-3) Acetaminophen (Acetaminophen 325 Mg Tablet) 975 mg PO BID [facility] Last Admin: 03/19/22 09:47 Dose: 975 mg Documented By: RONDA Aspirin (Aspirin Enteric Coated 81 Mg Tablet.) 81 mg PO DAILY [facility] Last Admin: 03/19/22 09:48 Dose: 81 mg Documented By: RONDA Carbamazepine (Carbamazepine 200 Mg Tablet) 600 mg PO BID [facility] Last Admin: 03/19/22 09:48 Dose: 600 mg Documented By: RONDA Enoxaparin Sodium (Enoxaparin Sodium 40 Mg/0.4 Ml Syringe) 40 mg SUBCUT Q24H [facility] Last Admin: 03/18/22 22:53 Dose: 40 mg Documented By: PAMELLA Melatonin (Melatonin 3 Mg Tablet) 6 mg PO BEDTIME PRN PRN Reason: Insomnia Melatonin (Melatonin 3 Mg Tablet) 6 mg PO BEDTIME [facility] Last Admin: 03/18/22 22:52 Dose: 6 mg Documented By: PAMELLA Non-Formulary Medication (Luyqlysmsug-[id number]) 1 each INHALE DAILY [facility] Ondansetron HCl (Ondansetron Hcl 4 Mg/2 Ml Vial) 4 mg IVPUSH Q8H PRN PRN Reason: Nausea and Vomiting Pharmacy Consult (Consult Rx Perform Med Rec) 1 each MISCELLANE ONCE PRN PRN Reason: Consult order Phenobarbital (Phenobarbital 100 Mg Tablet) 100 mg PO BEDTIME [facility] Last Admin: 03/18/22 22:52 Dose: 100 mg Documented By: PAMELLA Sodium Chloride (0.9 % Sodium Chloride Flush 3 Ml Syringe) 3 ml IVFLUSH QSHIFT [facility] Last Admin: 03/19/22 09:48 Dose: 3 ml Documented By: RONDA Tamsulosin HCl (Tamsulosin Hcl 0.4 Mg Capsule) 0.4 mg PO DAILY [facility] Last Admin: 03/19/22 09:48 Dose: 0.4 mg Documented By: RONDA Venlafaxine HCl (Venlafaxine Hcl Er 150 Mg Cap.Er.24h) 150 mg PO DAILY [facility] Last Admin: 03/19/22 09:47 Dose: 150 mg Documented By: RONDA Labs 03/19/22 06:35 03/19/22 06:35 Labs: Laboratory Results - last 24 hr 03/18/22 03/18/22 03/18/22 18:33 18:33 18:33 MCV 92.0 MCH 34.2 H MCHC 37.2 H RDW 11.5 Plt Count 206 MPV 8.3 L Immature Gran % (Auto) 0.3 Neut % (Auto) 81.9 H Lymph % (Auto) 10.6 L [place] % (Auto) 6.8 Eos % (Auto) 0.2 Baso % (Auto) 0.2 Lymph # (Auto) 0.9 L [place] # (Auto) 0.6 Eos # (Auto) 0.0 Baso # (Auto) 0.0 Abs Immat Gran (auto) 0.03 Absolute Neuts (auto) 7.2 Absolute Nucleated RBC 0.000 Nucleated RBC % (auto) 0.0 Anion Gap 14 Estim Creat Clear Calc 77.8 Estimated GFR > 60 Random Glucose 112 Estimat Average Glucose Hemoglobin A1c % Osmolality Calcium 8.3 L Total Bilirubin 0.5 AST 34 H ALT 25 Alkaline Phosphatase 101 Troponin I High Sens < 3.5 Total Protein 6.7 Albumin 3.7 Triglycerides Cholesterol LDL Cholesterol, Calc HDL Cholesterol Urine Color Urine Appearance Urine pH Ur Specific [place] Urine Protein Urine Glucose (UA) Urine Ketones Urine Blood Urine Nitrite Ur Leukocyte Esterase Urine RBC Urine WBC Ur Squamous Epith Cells Urine Bacteria Hyaline Casts Urine Osmolality COVID-19 (ANDREAS) COVID-19 Clin Com Influenza Type A (EVARISTO) Influenza Type B (EVARISTO) Influenza A & B Note 03/18/22 03/18/22 03/18/22 20:32 22:02 22:02 MCV MCH MCHC RDW Plt Count MPV Immature Gran % (Auto) Neut % (Auto) Lymph % (Auto) [place] % (Auto) Eos % (Auto) Baso % (Auto) Lymph # (Auto) [place] # (Auto) Eos # (Auto) Baso # (Auto) Abs Immat Gran (auto) Absolute Neuts (auto) Absolute Nucleated RBC Nucleated RBC % (auto) Anion Gap Estim Creat Clear Calc Estimated GFR Random Glucose Estimat Average Glucose Hemoglobin A1c % Osmolality Calcium Total Bilirubin AST ALT Alkaline Phosphatase Troponin I High Sens Total Protein Albumin Triglycerides Cholesterol LDL Cholesterol, Calc HDL Cholesterol Urine Color Yellow Urine Appearance Clear Urine pH 7.0 Ur Specific [place] 1.020 Urine Protein Trace Urine Glucose (UA) Negative Urine Ketones Negative Urine Blood Negative Urine Nitrite Negative Ur Leukocyte Esterase Trace H Urine RBC 0-2 Urine WBC 0-5 Ur Squamous Epith Cells 0-2 Urine Bacteria None Seen Hyaline Casts 0-2 Urine Osmolality COVID-19 (ANDREAS) Positive A COVID-19 Clin Com See Note Influenza Type A (EVARISTO) Negative Influenza Type B (EVARISTO) Negative Influenza A & B Note See Note 03/18/22 03/18/22 03/18/22 22:09 22:09 22:33 MCV MCH MCHC RDW Plt Count MPV Immature Gran % (Auto) Neut % (Auto) Lymph % (Auto) [place] % (Auto) Eos % (Auto) Baso % (Auto) Lymph # (Auto) [place] # (Auto) Eos # (Auto) Baso # (Auto) Abs Immat Gran (auto) Absolute Neuts (auto) Absolute Nucleated RBC Nucleated RBC % (auto) Anion Gap Estim Creat Clear Calc Estimated GFR Random Glucose Estimat Average Glucose 100 Hemoglobin A1c % 5.1 Osmolality 267 L Calcium Total Bilirubin AST ALT Alkaline Phosphatase Troponin I High Sens Total Protein Albumin Triglycerides 101 Cholesterol 211 LDL Cholesterol, Calc 138 HDL Cholesterol 53 Urine Color Urine Appearance Urine pH Ur Specific [place] Urine Protein Urine Glucose (UA) Urine Ketones Urine Blood Urine Nitrite Ur Leukocyte Esterase Urine RBC Urine WBC Ur Squamous Epith Cells Urine Bacteria Hyaline Casts Urine Osmolality COVID-19 (ANDREAS) COVID-19 Clin Com Influenza Type A (EVARISTO) Influenza Type B (EVARISTO) Influenza A & B Note 03/18/22 03/19/22 03/19/22 23:11 06:35 06:35 MCV 94.5 MCH 34.1 H MCHC 36.1 H RDW 11.8 Plt Count 188 MPV 8.1 L Immature Gran % (Auto) 0.4 Neut % (Auto) 63.3 Lymph % (Auto) 24.3 [place] % (Auto) 10.6 Eos % (Auto) 1.0 Baso % (Auto) 0.4 Lymph # (Auto) 1.2 [place] # (Auto) 0.5 Eos # (Auto) 0.1 Baso # (Auto) 0.0 Abs Immat Gran (auto) 0.02 Absolute Neuts (auto) 3.1 Absolute Nucleated RBC 0.000 Nucleated RBC % (auto) 0.0 Anion Gap 12 Estim Creat Clear Calc 72.2 Estimated GFR > 60 Random Glucose 109 Estimat Average Glucose Hemoglobin A1c % Osmolality Calcium 8.3 L Total Bilirubin AST ALT Alkaline Phosphatase Troponin I High Sens Total Protein Albumin Triglycerides Cholesterol LDL Cholesterol, Calc HDL Cholesterol Urine Color Urine Appearance Urine pH Ur Specific [place] Urine Protein Urine Glucose (UA) Urine Ketones Urine Blood Urine Nitrite Ur Leukocyte Esterase Urine RBC Urine WBC Ur Squamous Epith Cells Urine Bacteria Hyaline Casts Urine Osmolality 376 COVID-19 (ANDREAS) COVID-19 Clin Com Influenza Type A (EVARISTO) Influenza Type B (EVARISTO) Influenza A & B Note Assessment and Plan (1) Dysarthria: Status: Acute (2) Chronic hyponatremia: Status: Acute Plan 81-year-old female with pertinent history of seizure disorder, mood disorder, urinary incontinence, chronic hyponatremia, COPD, unspecified dementia who was brought to the emergency department for evaluation transient slurred speech. #.? Slurred speech, ataxia and confusion: Resolved, patient awake alert, answering questions properly, speech is clear, no neuro deficit, daughter at bedside, agrees patient is at baseline Likely symptoms due to COVID-19 infection, use of paxlovid and hyponatremia, symptoms going on for last 3 days and worse since yesterday, CT head showed no acute infarctions CT head showed chronic microangiopathy, lipid profile showed an LDL of 138, patient previously was on statin discontinued as per daughter's request due to concern for side effects MRI cannot be obtained due to concern for bladder stimulator Await neuro input, hold further imaging studies. #.? Chronic hyponatremia: Sodium improved from 125-127, low serum osmolality 267, and urine osmolality 376, urinary sodium not collected, normal is TSH 1.9 1 year ago.? Likely due to carbamazepine , Consider alternative medicines , her patient drink excessive fluids recommend 1.5-1.8 L fluid restriction, follow BMP. #.? Seizure disorder:? On phenobarb and carbamazepine, continue seizure precautions #.? Mood disorder:? On venlafaxine #.? Urinary incontinence: On Flomax #.? COPD:? No exacerbation on admission.? Continue home inhaler #.? COVID-19 infection:? No hypoxemia and hence no indication for Decadron, status post PAXLOvid b.i.d. x4 days. DVT prophylaxis: Lovenox 40 mg daily Full code. Patient need continued inpatient hospitalization due to multiple neurological symptoms awaiting neurological input and close neurological monitoring. Time Spent With Patient Time: Total time managing care of this patient today ____ minutes. Quality Stroke Does the patient have a stroke diagnosis?: No VTE Prior VTE?: No VTE Risk Level:: Medical - moderate - high VTE Device Contraindication: Treatment Not Indicated VTE Drug Contraindication: N/A - Med Ordered
--- NOTE | 2022-03-19 12:02 | MHC.CM.PN ---
talked with pts vijaya moreira with whom she lives pt hs [facility] 1 x monthly is covid vax x3 and will have own transportaion home pt may be dcd today
--- NOTE | 2022-03-19 15:16 | P.DS_ITS ---
DS: Providers Provider Date of Service: 03/19/22 Date of admission: 03/18/22 21:53 Primary care physician: Nila Eldridge MD Consults: 03/18/22 22:18 Consult to Neurology Routine Consulting Provider: Herson Bernardo Reason for consultation: slurred speech DS: Diagnosis Discharge Diagnosis (1) Dysarthria: Status: Acute (2) Chronic hyponatremia: Status: Acute DS: Summary Hospital Course Hospital Course: Date of Service: 03/18/22 Chief Complaint: Slurred speech This is a 81-year-old female with pertinent history of seizure disorder, mood disorder, urinary incontinence, chronic hyponatremia, COPD, unspecified dementia who was brought to the emergency department for evaluation transient slurred speech.? Most of the history was obtained by daughter at bedside.? She stated that on the day of presentation, patient had slow speech that lasted for about 2 hours.? It was associated with confusion, worse than baseline and unsteadiness of gait.? Patient does have dementia and confusion at baseline but on the day of presentation it was worse than usual.? No jerking movement of extremities, no tongue bite, no weakness of extremities, no facial droop, no loss of consciousness.? The daughter denied fever, chills, nausea, vomiting, diarrhea, abdominal pain, changes in urinary or bowel habits.? Patient was diagnosed with COVID-19 about a week ago and has been on Paxlovid.? Patient is compliant with medications for chronic medical conditions and daughter his caregiver.? Patient denies any complaints at the time of my evaluation. In the emergency department, sodium noted to be 125 Hospital course 81-year-old female with pertinent history of seizure disorder, mood disorder, urinary incontinence, chronic hyponatremia, COPD, unspecified dementia who was brought to the emergency department for evaluation transient slurred speech. #.? Slurred speech, ataxia and confusion:? Resolved, patient awake alert, answering questions properly, speech is clear, no neuro deficit, daughter at bedside, agrees patient is at baseline, Likely symptoms due to COVID-19 infection, use of paxlovid and hyponatremia, symptoms going on for last 3 days and worse since yesterday, CT head showed no acute infarctions,it showed chronic microangiopathy, lipid profile showed an LDL of 138, patient previously was on statin discontinued as per daughter's request due to concern for side effects, carotid ultrasound showed no significant stenosis, MRI cannot be obtained due to concern for bladder stimulator No further imaging studies needed, case discussed with Dr. Eldridge, since patient is clinically stable will be discharged home recommend to continue aspirin. ? #.? Chronic hyponatremia:? Sodium improved from 125-127, low serum osmolality 267, and urine osmolality 376, urinary sodium not collected, normal is TSH 1.9 1 year ago, Likely Siadh ,Consider alternative to Tegretol ?? ? patient drink excessive fluids recommend 1.5-1.8 L fluid restriction, follow BMP in 1-2 weeks. #.? Seizure disorder:? On phenobarb and carbamazepine, continue seizure precautions #.? Mood disorder:? On venlafaxine #.? Urinary incontinence: On Flomax #.? COPD:? No exacerbation on admission.? Continue home inhaler #.? COVID-19 infection:? No hypoxemia and hence no indication for Decadron, status post PAXLOvid? b.i.d. x4 days, recommend rest and symptomatic treatment. Time Spent with Patient Time attestation: Total time managing care of this patient today ____ minutes. Discharge coordination time: Greater than 30 minutes Quality: Safe Use of Opioids Does Pt have an Active Cancer Diagnosis on the Problem List?: No Quality: Stroke Does the patient have a stroke diagnosis?: No Physical Exam Vital Signs: Vital Signs: Last Vital Signs Temp 97.5 F 03/19/22 11:30 Pulse 75 03/19/22 11:30 Resp 18 03/19/22 11:30 BP 140/70 H 03/19/22 11:30 Pulse Ox 98 03/19/22 11:30 O2 Del Method 03/19/22 11:30 BMI result Body Mass Index 28.3 Const: Other: General sitting comfortably on bed, in no acute distress.? Neck? supple no JVD. CVS? regular rate rhythm, Respiratory lungs clear to auscultation, no respiratory distress, no wheeze, no rhonchi. Gastrointestinal abdomen soft, nontender, bowel sounds audible Extremities no? edema. Neuro nonfocal, moving all 4 extremity, speech clear, face symmetrical. Skin no rash DS: Data Data Completed and Pending Labs on day of discharge: Laboratory Results - last 24 hr 03/18/22 03/18/22 03/18/22 18:33 18:33 18:33 WBC 8.8 RBC 4.36 Hgb 14.9 Hct 40.1 MCV 92.0 MCH 34.2 H MCHC 37.2 H RDW 11.5 Plt Count 206 MPV 8.3 L Immature Gran % (Auto) 0.3 Neut % (Auto) 81.9 H Lymph % (Auto) 10.6 L [place] % (Auto) 6.8 Eos % (Auto) 0.2 Baso % (Auto) 0.2 Lymph # (Auto) 0.9 L [place] # (Auto) 0.6 Eos # (Auto) 0.0 Baso # (Auto) 0.0 Abs Immat Gran (auto) 0.03 Absolute Neuts (auto) 7.2 Absolute Nucleated RBC 0.000 Nucleated RBC % (auto) 0.0 Sodium 125 L Potassium 4.3 Chloride 95 L Carbon Dioxide 20 L Anion Gap 14 BUN 8 L Creatinine 0.54 Estim Creat Clear Calc 77.8 Estimated GFR > 60 Random Glucose 112 Estimat Average Glucose Hemoglobin A1c % Osmolality Calcium 8.3 L Total Bilirubin 0.5 AST 34 H ALT 25 Alkaline Phosphatase 101 Troponin I High Sens < 3.5 Total Protein 6.7 Albumin 3.7 Triglycerides Cholesterol LDL Cholesterol, Calc HDL Cholesterol Urine Color Urine Appearance Urine pH Ur Specific [place] Urine Protein Urine Glucose (UA) Urine Ketones Urine Blood Urine Nitrite Ur Leukocyte Esterase Urine RBC Urine WBC Ur Squamous Epith Cells Urine Bacteria Hyaline Casts Urine Osmolality COVID-19 (ANDREAS) COVID-19 Clin Com Influenza Type A (EVARISTO) Influenza Type B (EVARISTO) Influenza A & B Note 03/18/22 03/18/22 03/18/22 20:32 22:02 22:02 WBC RBC Hgb Hct MCV MCH MCHC RDW Plt Count MPV Immature Gran % (Auto) Neut % (Auto) Lymph % (Auto) [place] % (Auto) Eos % (Auto) Baso % (Auto) Lymph # (Auto) [place] # (Auto) Eos # (Auto) Baso # (Auto) Abs Immat Gran (auto) Absolute Neuts (auto) Absolute Nucleated RBC Nucleated RBC % (auto) Sodium Potassium Chloride Carbon Dioxide Anion Gap BUN Creatinine Estim Creat Clear Calc Estimated GFR Random Glucose Estimat Average Glucose Hemoglobin A1c % Osmolality Calcium Total Bilirubin AST ALT Alkaline Phosphatase Troponin I High Sens Total Protein Albumin Triglycerides Cholesterol LDL Cholesterol, Calc HDL Cholesterol Urine Color Yellow Urine Appearance Clear Urine pH 7.0 Ur Specific [place] 1.020 Urine Protein Trace Urine Glucose (UA) Negative Urine Ketones Negative Urine Blood Negative Urine Nitrite Negative Ur Leukocyte Esterase Trace H Urine RBC 0-2 Urine WBC 0-5 Ur Squamous Epith Cells 0-2 Urine Bacteria None Seen Hyaline Casts 0-2 Urine Osmolality COVID-19 (ANDREAS) Positive A COVID-19 Clin Com See Note Influenza Type A (EVARISTO) Negative Influenza Type B (EVARISTO) Negative Influenza A & B Note See Note 03/18/22 03/18/22 03/18/22 22:09 22:09 22:33 WBC RBC Hgb Hct MCV MCH MCHC RDW Plt Count MPV Immature Gran % (Auto) Neut % (Auto) Lymph % (Auto) [place] % (Auto) Eos % (Auto) Baso % (Auto) Lymph # (Auto) [place] # (Auto) Eos # (Auto) Baso # (Auto) Abs Immat Gran (auto) Absolute Neuts (auto) Absolute Nucleated RBC Nucleated RBC % (auto) Sodium Potassium Chloride Carbon Dioxide Anion Gap BUN Creatinine Estim Creat Clear Calc Estimated GFR Random Glucose Estimat Average Glucose 100 Hemoglobin A1c % 5.1 Osmolality 267 L Calcium Total Bilirubin AST ALT Alkaline Phosphatase Troponin I High Sens Total Protein Albumin Triglycerides 101 Cholesterol 211 LDL Cholesterol, Calc 138 HDL Cholesterol 53 Urine Color Urine Appearance Urine pH Ur Specific [place] Urine Protein Urine Glucose (UA) Urine Ketones Urine Blood Urine Nitrite Ur Leukocyte Esterase Urine RBC Urine WBC Ur Squamous Epith Cells Urine Bacteria Hyaline Casts Urine Osmolality COVID-19 (ANDREAS) COVID-19 Clin Com Influenza Type A (EVARISTO) Influenza Type B (EVARISTO) Influenza A & B Note 03/18/22 03/19/22 03/19/22 23:11 06:35 06:35 WBC 4.8 RBC 4.19 L Hgb 14.3 Hct 39.6 MCV 94.5 MCH 34.1 H MCHC 36.1 H RDW 11.8 Plt Count 188 MPV 8.1 L Immature Gran % (Auto) 0.4 Neut % (Auto) 63.3 Lymph % (Auto) 24.3 [place] % (Auto) 10.6 Eos % (Auto) 1.0 Baso % (Auto) 0.4 Lymph # (Auto) 1.2 [place] # (Auto) 0.5 Eos # (Auto) 0.1 Baso # (Auto) 0.0 Abs Immat Gran (auto) 0.02 Absolute Neuts (auto) 3.1 Absolute Nucleated RBC 0.000 Nucleated RBC % (auto) 0.0 Sodium 127 L Potassium 4.0 Chloride 95 L Carbon Dioxide 24 Anion Gap 12 BUN 6 L Creatinine 0.58 Estim Creat Clear Calc 72.2 Estimated GFR > 60 Random Glucose 109 Estimat Average Glucose Hemoglobin A1c % Osmolality Calcium 8.3 L Total Bilirubin AST ALT Alkaline Phosphatase Troponin I High Sens Total Protein Albumin Triglycerides Cholesterol LDL Cholesterol, Calc HDL Cholesterol Urine Color Urine Appearance Urine pH Ur Specific [place] Urine Protein Urine Glucose (UA) Urine Ketones Urine Blood Urine Nitrite Ur Leukocyte Esterase Urine RBC Urine WBC Ur Squamous Epith Cells Urine Bacteria Hyaline Casts Urine Osmolality 376 COVID-19 (ANDREAS) COVID-19 Clin Com Influenza Type A (EVARISTO) Influenza Type B (EVARISTO) Influenza A & B Note Discharge Plan Discharge Patient Disposition: Home, Self-Care Discharge Diagnosis: Transient neurological deficit Chronic hyponatremia COVID-19 infection Referrals: Nila Eldridge MD [Primary Care Provider] - 1 Week Discharge Medications: Continued venlafaxine 150 mg capsule,extended release 24hr 150 mg PO DAILY 90 Days Qty: 90 0RF [id number]-ghfhmzsvk-jcrzobip 100-62.5-25 mcg blister with device 1 ea inhalation DAILY 90 Days Qty: 3 0RF carbamazepine 200 mg tablet 3 tab PO BID tamsulosin [Flomax] 0.4 mg capsule 0.4 mg PO DAILY acetaminophen [Tylenol Extra Strength] 500 mg tablet 1,000 mg PO BID cholecalciferol (vitamin D3) 25 mcg (1,000 unit) capsule 25 mcg PO DAILY omega-3 fatty acids [Fish Oil Concentrate] 1,000 mg capsule 1,000 mg PO DAILY phenobarbital 97.2 mg tablet 97.2 mg PO BEDTIME melatonin 5 mg capsule 5 mg PO BEDTIME Rx Instructions: at bedtime aspirin 81 mg tablet,delayed release (DR/EC) 81 mg PO DAILY Discontinued Paxlovid (EUA) 150-100 mg tablets,dose pack See Rx Instructions PO PER PKG DIR 5 Days Qty: 20 0RF Rx Instructions: PO PER PKG DIR nirmatrelvit 150 mg with Ritonavir 100 mg BID Discharge Orders: Discharge Order (Routine); Ordered 03/19/22 Ordered By: Luli Flood Diet: Advance to usual diet Activity on Discharge: As tolerated Stand Alone Forms: Patient Portal Discharge page Other Ambulatory Orders: Basic Metabolic Panel (Routine) Timeframe: 2 Weeks Facility: [facility] - Location: Laboratory Ordered By: Luli Flood Care Plan Goals: Transient neurological deficit resolved likely due to COVID-19 infection, rest, Tylenol for pain, stop Paxlovid Chronic hyponatremia restrict fluid intake to 1.5-1.8 L Follow-up sodium levels in 1-2 weeks Discuss use of statins with PCP Health Concerns: Baseline dementia, chronic hyponatremia continue all home medications Plan of Treatment: Outpatient follow-up with primary care physician call for appointment Assessment: as above
--- NOTE | 2022-03-19 15:17 | MHC.CM.PN ---
pt dcd home no skilled servcies needed
[2022-03-19 15:28] VITALS: BP 142/68; PULSE 79; RESP 18; TEMP 36.1; O2SAT 97
--- NOTE | 2022-03-19 15:58 | PC.NURSE ---
this nurse got report on pt at 13:00. pt sleeping at the time of self introduction - daughter in room. daughter (proxy) requested for pt to be d/c today home. provider notified. cleared Pt to d/c - discharge instruction given to daughter. IV and tele monitor off. vitals within normal limits. pt alert when wheeled down to front entrance with hospital staff and daughter.
--- NOTE | 2022-03-21 10:45 | P.CNNE_ITS ---
History of Present Illness Data of Consult Service Date: 03/21/22 Primary Care Provider: Nila Eldridge MD [facility] Reason for consult: Possible stroke 81 years old woman who carried diagnosis of seizure disorder and dementia came to hospital with change in mental status slurred in his speech and unsteadiness. When I saw her this morning she said that she just had an episode of nausea and dry heaves and this was the reason she was in hospital. She was also having a headache but not debilitating. She denied any recent cold or flu-like illness but was noted to be COVID positive. Review of Systems Review of Systems: No definite cold or flu-like illness. [facility] Past Medical History Medical History Anxiety, generalized Chronic hyponatremia COPD, moderate Epilepsy Hematuria Osteoarthritis of right shoulder Right shoulder pain Family History Family History Maternal Grandmother Stomach cancer Sister Breast cancer Surgical History Surgical History History of appendectomy History of cataract surgery History of cholecystectomy Social History Social History Household Members: Family Housing: House Do you presently have visiting nurse or other home services: Yes ([facility]) Alcohol intake: never Patient Tobacco Use Status: Former Tobacco user e-Cigarette/Vaping Use: Never Used service: No Current occupational status: disabled Current occupation: right handed Cognitive needs: No Hearing needs: Yes Vision needs: Yes Meds Allergies Allergy/AdvReac Type Severity Reaction Status Date / Time divalproex sodium Allergy Unknown UNKNOWN Verified 11/19/21 08:40 [From DEPAKOTE] phenytoin [Dilantin] Allergy Unknown unk Verified 11/19/21 08:40 Home Medications Medication Instructions Recorded Confirmed Last Taken Type melatonin 5 mg capsule 5 mg PO BEDTIME 07/13/20 03/18/22 Unknown History omega-3 fatty acids 1,000 mg 1,000 mg PO DAILY 07/13/20 03/18/22 03/18/22 History capsule (Fish Oil Concentrate) phenobarbital 97.2 mg tablet 97.2 mg PO BEDTIME 07/13/20 03/18/2223 History aspirin 81 mg tablet,delayed 81 mg PO DAILY 04/08/21 03/18/22 03/18/22 History release cholecalciferol (vitamin D3) 25 25 mcg PO DAILY 04/09/21 03/18/22 03/18/22 History mcg (1,000 unit) capsule acetaminophen 500 mg tablet 1,000 mg PO BID 06/16/21 03/18/22 Unknown History (Tylenol Extra Strength) carbamazepine 200 mg tablet 3 tab PO BID 03/18/22 03/18/22 03/18/22 09:00 History tamsulosin 0.4 mg capsule (Flomax) 0.4 mg PO DAILY urinary retetion 03/18/22 03/18/22 03/18/22 History Physical Exam Vital Signs: Vital Signs: Last Vital Signs Temp 97.0 F 03/19/22 15:28 Pulse 79 03/19/22 15:28 Resp 18 03/19/22 15:28 BP 142/68 H 03/19/22 15:28 Pulse Ox 97 03/19/22 15:28 O2 Del Method 03/19/22 15:28 BMI result Body Mass Index 28.3 Neuro: Other: She is alert and awake with normal spontaneity of speech fluency comprehension a nd anxious affect. Face is symmetrical. Visual romeo are full. Neck is supple. There is no pronator drift. Eihdfw-mx-bxbw testing is normal. There is no obvious focal weakness. Results Labs 03/19/22 06:35 03/19/22 06:35 Labs: Head CT revealed moderately severe diffuse cerebral atrophy and moderately severe chronic microvascular ischemic changes. Carotid ultrasound is okay. Microbiology Microbiology Results: Microbiology 03/18/22 23:11 Urine clean catch - Clean Catch Midstream Urine Culture - Final Assessment and Plan (1) Encephalopathy: Status: Acute 81 years old woman who has underlying significant brain atrophy and significant vascular disease suggestive of multifactorial, at Alzheimer +vascular, dementia. She also carried a diagnosis of seizure disorder and was treated with phenobarbital and carbamazepine. She came to hospital with slurred speech and unsteadiness. She told me that this was about dizziness causing nausea and vomiting type symptoms. Her serum sodium was significantly low likely related to carbamazepine. In her age group, this type of serum sodium or hyponatremia could result in multiple symptoms including confusion, lethargy, and seizures. My recommendation is to discontinue carbamazepine and change it to an alternate medicine. Depakote 250 mg twice a day or 500 mg twice a day might be a better option, which would also work as mood stabilizer like carbamazepine. Phenobarbital dose can continue as she has been taking. As far as vascular disease is concerned, continuation of anti-platelet agent such as baby aspirin daily blood pressure control and statins are recommended. Time Spent With Patient Time: Total time managing care of this patient today ____ minutes. Procedures Date of Service Date of Service: 03/21/22
== END 2022-03-19 16:02 | disposition home or self-care (01) ==
LOC: HO.ED 22:13 → HO.EDOVER 22:25 → HO.IMC 23:13
PROVIDERS: Nurse Practitioner Family; Admitting Provider Student in an Organized Health Care Education/Training Program; Emergency Provider Emergency Medicine; PCP Internal Medicine; Visit Provider Hospitalist
DX: U07.1 COVID-19 (principal); G93.40 Encephalopathy, unspecified; E87.1 Hypo-osmolality and hyponatremia; R47.1 Dysarthria and anarthria; R47.81 Slurred speech; G31.09 Other frontotemporal neurocognitive disorder; F02.80 Dementia in other diseases classified elsewhere, unspecified severity, without behavioral disturbance, psychotic disturbance, mood disturbance, and anxiety; F41.9 Anxiety disorder, unspecified; G40.909 Epilepsy, unspecified, not intractable, without status epilepticus; F39 Unspecified mood [affective] disorder; J44.9 Chronic obstructive pulmonary disease, unspecified; Z87.891 Personal history of nicotine dependence; Z79.899 Other long term (current) drug therapy
CPT/HCPCS: 36415; 70450; 71046; 74018; 80048; 80053; 80061; 81001; 83036; 83930; 83935; 84484; 85025; 87086; 87502; 87635; 93005; 93880; 96372; 99222; 99285; J1650

== ENCOUNTER 2022-04-12 15:20 | Outpatient (REF) | payer MEDICARE, MEDICAID, SELFPAY ==
[2022-04-12 17:51] LABS: Anion Gap 14 (12-20); Blood Urea Nitrogen 12 mg/dL (9-16); Calcium 8.4 mg/dL (8.4-10.2); Carbon Dioxide 27 mmol/L (22-29); Chloride 92 mmol/L (96-108); Estimated Glomerular Filt Rate > 60; Glucose Random 87 mg/dL (60-115); Potassium 4.2 mmol/L (3.3-5.1); Sodium 129 mmol/L (135-145)
== END 2022-04-12 15:21 | disposition home or self-care (01) ==
LOC: HO.HMGCLDS 15:20
PROVIDERS: Hospitalist; PCP Internal Medicine; Visit Provider Internal Medicine
DX: E87.1 Hypo-osmolality and hyponatremia (principal)
CPT/HCPCS: 36415; 80048

== ENCOUNTER 2022-05-03 15:21 | Outpatient (REF) | payer MEDICARE, MEDICAID, SELFPAY ==
[2022-05-03 17:24] LABS: Anion Gap 12 (12-20); Carbon Dioxide 28 mmol/L (22-29); Chloride 92 mmol/L (96-108); Potassium 4.4 mmol/L (3.3-5.1); Sodium 128 mmol/L (135-145)
[2022-05-03 17:25] LABS: Anion Gap 12 (12-20); Blood Urea Nitrogen 13 mg/dL (9-16); Calcium 8.5 mg/dL (8.4-10.2); Carbon Dioxide 28 mmol/L (22-29); Chloride 92 mmol/L (96-108); Estimated Glomerular Filt Rate > 60; Glucose Random 83 mg/dL (60-115); Potassium 4.2 mmol/L (3.3-5.1); Sodium 128 mmol/L (135-145)
== END 2022-05-03 15:22 | disposition home or self-care (01) ==
LOC: HO.HMGCLDS 15:21
PROVIDERS: PCP Internal Medicine; Visit Provider Psychiatry & Neurology Neurology
DX: E87.1 Hypo-osmolality and hyponatremia (principal); G40.909 Epilepsy, unspecified, not intractable, without status epilepticus
CPT/HCPCS: 36415; 80048; 80051

== ENCOUNTER 2022-05-14 09:17 | Outpatient (REF) | payer MEDICARE, MEDICAID, SELFPAY ==
[2022-05-14 11:26] LABS: Anion Gap 13 (12-20); Carbon Dioxide 28 mmol/L (22-29); Chloride 101 mmol/L (96-108); Potassium 4.1 mmol/L (3.3-5.1); Sodium 138 mmol/L (135-145)
== END 2022-05-14 09:18 | disposition home or self-care (01) ==
LOC: HO.HMGCLR 09:17
PROVIDERS: PCP Internal Medicine; Visit Provider Psychiatry & Neurology Neurology
DX: G40.909 Epilepsy, unspecified, not intractable, without status epilepticus (principal)
CPT/HCPCS: 36415; 80051

== ENCOUNTER 2022-05-21 10:42 | Outpatient (REF) | payer MEDICARE, MEDICAID, SELFPAY ==
[2022-05-21 13:37] LABS: Anion Gap 13 (12-20); Carbon Dioxide 29 mmol/L (22-29); Chloride 99 mmol/L (96-108); Potassium 4.1 mmol/L (3.3-5.1); Sodium 137 mmol/L (135-145)
== END 2022-05-21 10:43 | disposition home or self-care (01) ==
LOC: HO.HMGCLDS 10:42
PROVIDERS: PCP Internal Medicine; Visit Provider Psychiatry & Neurology Neurology
DX: G40.909 Epilepsy, unspecified, not intractable, without status epilepticus (principal)
CPT/HCPCS: 36415; 80051

== ENCOUNTER 2022-06-16 15:50 | Outpatient (REF) | payer MEDICARE, MEDICAID, SELFPAY ==
--- NOTE | ~2022-06-16 | XR_ITS ---
EXAMINATION: XR HIP, LEFT CLINICAL INFORMATION: Lower abdominal pain COMPARISON: None available. TECHNIQUE: Two views of the left hip. FINDINGS: No fracture or dislocation. The left hip is well aligned. Mild narrowing of the joint space with sclerosis. Partially visualized radiopaque structure over the central pelvis. XR/XR hip LT min 2V IMPRESSION: No fracture or malalignment. Mild degenerative change of the left hip.
--- NOTE | ~2022-06-16 | US_ITS ---
EXAMINATION: US VENOUS ULTRASOUND WITH DOPPLER LOWER EXTREMITY, LEFT CLINICAL INFORMATION: Left lower extremity edema and pain COMPARISON: None available. TECHNIQUE: Ultrasound of the deep veins is performed from the hip to the calf with compression sonography and color and pulse Doppler assessment. Spectral analysis with color-flow imaging is performed. FINDINGS: There is normal venous compression and respiratory variation and augmented flow. The visualized common femoral vein, superficial femoral vein, profunda femoral vein, popliteal vein, and the trifurcation region shows no evidence of deep venous thrombosis. There is no significant popliteal fossa cyst. If the patient's symptoms persist, followup ultrasound in 5 days 7 days might be of value to exclude proximal propagation from a non-visualized calf vein. US/US venous duplex LE LT IMPRESSION: No DVT demonstrated in the left lower extremity.
== END 2022-06-16 15:51 | disposition home or self-care (01) ==
LOC: HO.XRAY 15:50
PROVIDERS: PCP Internal Medicine; Visit Provider Nurse Practitioner Family
DX: R10.30 Lower abdominal pain, unspecified (principal); M79.662 Pain in left lower leg
CPT/HCPCS: 73502; 93971

== ENCOUNTER → 2022-06-23 10:07 | Outpatient (BNVA) | payer MEDICARE, MEDICAID, SELFPAY | PROVIDERS: PCP Internal Medicine; Visit Provider Urology | DX: N32.81 Overactive bladder (principal) | CPT/HCPCS: 99212 ==

== ENCOUNTER 2022-08-08 11:07 | Day surgery (SDC) | payer MEDICARE, MEDICAID, SELFPAY ==
[2022-08-04 11:11] VITALS: BMI 31.2
--- NOTE | 2022-08-05 11:00 | P.CONAN_ITS ---
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 (Acute) Hospital discharge follow-up (Acute) Head injury due to trauma (Acute) Fall (Acute) Lipid disorder (Acute) Cystitis (Acute) Chronic hyponatremia (Acute) Groin pain (Acute) Calf pain (Acute) COPD, moderate (Acute) Anxiety, generalized (Acute) Right shoulder pain (Acute) Hematuria (Acute) Osteoarthritis of right shoulder (Acute) Past Medical History Medical History Anxiety, generalized Chronic hyponatremia COPD, moderate Epilepsy Frontotemporal dementia Hematuria Osteoarthritis of right shoulder Right shoulder pain Family History Family History Maternal Grandmother Stomach cancer Sister Breast cancer Surgical History Surgical History History of appendectomy History of cataract surgery History of cholecystectomy S/P placement of nerve stimulator S/P placement of nerve stimulator Social History Social History Household Members: Family Housing: House Are you a primary nurse care manager to a significant other at home: No Do you presently have visiting nurse or other home services: Yes ([facility]) Alcohol intake: never Patient Tobacco Use Status: Former Tobacco user Quit Date: ~2007 Tobacco use type: Cigarette e-Cigarette/Vaping Use: Never Used Use of substances other than those prescribed or required for medical reasons: No Have you been hit, kicked, punched, or otherwise hurt by someone within the past year? If so, by whom?: No Are you DNR?: No Advance Directives: Yes Advance Directives Information Provided: Yes Advance Directives on File: Yes Advance Directives Date on File: 02/22/15 Recently lost weight without trying: No Eating poorly because of decreased appetite: No Nutrition Risks: Surgical patient >75years Poor oral hygiene: No (full upper denture) service: No Current occupational status: disabled Current occupation: right handed Cognitive needs: No Hearing needs: Yes Vision needs: Yes Meds Allergies Allergy/AdvReac Type Severity Reaction Status Date / Time phenytoin [Dilantin] Allergy Intermediate gums Verified 08/08/22 11:47 affected-loosened and lost teeth divalproex sodium Allergy Unknown Unknown-daughter Verified 08/08/22 11:47 [From DEPAKOTE] does not remember reaction Home Medications Medication Instructions Recorded Confirmed Last Taken Type melatonin 5 mg capsule 5 mg PO BEDTIME 07/13/20 08/04/22 Unknown History omega-3 fatty acids 1,000 mg 1,000 mg PO DAILY 07/13/20 08/04/22 08/01/22 History capsule (Fish Oil Concentrate) phenobarbital 97.2 mg tablet 97.2 mg PO BEDTIME 07/13/20 08/04/22 03/17/22 History aspirin 81 mg tablet,delayed 81 mg PO DAILY 04/08/21 08/04/22 08/01/22 History release cholecalciferol (vitamin D3) 25 25 mcg PO DAILY 04/09/21 08/04/22 03/18/22 History mcg (1,000 unit) capsule carbamazepine 200 mg tablet 3 tab PO BID 03/18/22 08/04/22 08/08/22 09:00 History acetaminophen 650 mg 650 mg PO BID 04/29/22 08/04/22 Unknown History tablet,extended release (Tylenol Arthritis Pain) Exam Exam Date and Time: August 05, 2022 1100 Height,Weight and Vital Signs: Height 5 ft 1 in Weight 74.843 kg Pertinent Lab Results Pertinent Lab Results: Laboratory Tests 03/19/22 05/03/22 05/21/22 06:35 15:30 10:49 WBC 4.8 Hgb 14.3 Hct 39.6 Plt Count 188 Sodium 137 Potassium 4.1 Chloride 99 Carbon Dioxide 29 BUN 13 Creatinine 0.53 Narrative Narrative: EKG 02/2022 Vent. Rate : 073 BPM ? ? Atrial Rate : 073 BPM ?? P-R Int : 194 ms? QRS Dur : 072 ms ? ? QT Int : 372 ms ? ? ? P-R-T Axes : 041 031 052 degrees ?? QTc Int : 409 ms ? Normal sinus rhythm Septal infarct , age undetermined Abnormal ECG When compared with ECG of 11-SEP-2018 12:11, [place] interval has decreased Assessment and Plan Assessment Anesthesia Assessment: Chart Reviewed Documented by User: Danyelle Burerll MD 08/08/22 13:17 PMFSH Past Medical History Medical History Anxiety, generalized Chronic hyponatremia COPD, moderate Epilepsy Frontotemporal dementia Hematuria Osteoarthritis of right shoulder Right shoulder pain Family History Family History Maternal Grandmother Stomach cancer Sister Breast cancer Family history of problems with anesthesia: No Surgical History Surgical History History of appendectomy History of cataract surgery History of cholecystectomy S/P placement of nerve stimulator S/P placement of nerve stimulator History of Problems with Anesthesia: No Social History Social History Household Members: Family Housing: House Are you a primary nurse care manager to a significant other at home: No Do you presently have visiting nurse or other home services: Yes ([facility]) Alcohol intake: never Patient Tobacco Use Status: Former Tobacco user Quit Date: ~2007 Tobacco use type: Cigarette e-Cigarette/Vaping Use: Never Used Use of substances other than those prescribed or required for medical reasons: No Have you been hit, kicked, punched, or otherwise hurt by someone within the past year? If so, by whom?: No Are you DNR?: No Advance Directives: Yes Advance Directives Information Provided: Yes Advance Directives on File: Yes Advance Directives Date on File: 02/22/15 Recently lost weight without trying: No Eating poorly because of decreased appetite: No Nutrition Risks: Surgical patient >75years Poor oral hygiene: No (full upper denture) service: No Current occupational status: disabled Current occupation: right handed Cognitive needs: No Hearing needs: Yes Vision needs: Yes Meds Allergies Allergy/AdvReac Type Severity Reaction Status Date / Time phenytoin [Dilantin] Allergy Intermediate gums Verified 08/08/22 11:47 affected-loosened and lost teeth divalproex sodium Allergy Unknown Unknown-daughter Verified 08/08/22 11:47 [From DEPAKOTE] does not remember reaction Home Medications Medication Instructions Recorded Confirmed Last Taken Type melatonin 5 mg capsule 5 mg PO BEDTIME 07/13/20 08/04/22 Unknown History omega-3 fatty acids 1,000 mg 1,000 mg PO DAILY 07/13/20 08/04/22 08/01/22 History capsule (Fish Oil Concentrate) phenobarbital 97.2 mg tablet 97.2 mg PO BEDTIME 07/13/20 08/04/22 03/17/22 History aspirin 81 mg tablet,delayed 81 mg PO DAILY 04/08/21 08/04/22 08/01/22 History release cholecalciferol (vitamin D3) 25 25 mcg PO DAILY 04/09/21 08/04/22 03/18/22 History mcg (1,000 unit) capsule carbamazepine 200 mg tablet 3 tab PO BID 03/18/22 08/04/22 08/08/22 09:00 History acetaminophen 650 mg 650 mg PO BID 04/29/22 08/04/22 Unknown History tablet,extended release (Tylenol Arthritis Pain) Exam Airway Mallampati Class: I TM Dist: >3cm Denture: Upper and Lower Heart: rrr Lungs: cta Assessment and Plan Assessment Anesthesia Assessment: Anesthesia Plan Discussed Final Anesthetic Review Family History of Problems with Anesthesia: No History of Problems with Anesthesia: No NPO: Yes ASA Class: III Final Preanesthetic Review: No Changes in Pt Med Stat, Meds/Allgs Chart Reviewed, Consent Obtained/Reviewed and Anes Risks/Benef Reviewed Patient Risk: Low Procedure Risk: Low (pt .s daughter requests only MAC as much as possible as pt has dementia ) Anesthetic Plan Anesthetic Plan: MAC: Disposition: Standard PACU
--- NOTE | ~2022-08-08 | FL_ITS ---
EXAMINATION: XR FLUOROSCOPY WITH IMAGES CLINICAL INFORMATION: Interstim lead removal COMPARISON: Previous [facility] February 2022 TECHNIQUE: Fluoroscopy Supervised By: Dr. Russ. Fluoroscopy Time: 15.7 secs. Cumulative Dose: 4.67 mGy. Images: 2. FINDINGS: First image demonstrates radiopaque foreign body projecting over the sacrum. This probably represents a stimulator lead slightly changed in orientation from February 2022 exam and may be in 2 parts. Second image demonstrates needle or probe projecting over the sacrum. FL/FL guidance in OR IMPRESSION: Fluoroscopy guidance for Interstim lead removal.
[2022-08-08 12:03] VITALS: BP 134/59; PULSE 64; RESP 16; TEMP 36.4; O2SAT 97
[2022-08-08] MEDS: Lactated Ringers 1,000 ML 100 ML IVCONT (12:10)
--- NOTE | 2022-08-08 13:43 | MHC.SHP ---
Pre-Procedural Eval Section A Date of Service: 08/08/22 The patient is an INPATIENT: No Changes since office visit: No Cold of Flu in the past 2 weeks, No New Medical Problems, No Changes in Medication and No Patient answered all questions The History & Physical has been completed within 30 days and I have reviewed it.: Yes Section B Chief Complaint: Overactive bladder Details of Present Illness: InterStim lead removal Allergies: Allergies Allergy/AdvReac Type Severity Reaction Status Date / Time phenytoin [Dilantin] Allergy Intermediate gums Verified 08/08/22 11:47 affected-loosened and lost teeth divalproex sodium Allergy Unknown Unknown-daughter Verified 08/08/22 11:47 [From DEPAKOTE] does not remember reaction Review of Systems Sugical H&P ROS: Negative: Constitution, Cardiovascular, Respiratory, Neurological, Psychiatric, Hem-Onc, Allergic/Immunologic, Gastrointestinal, Genitourinary, Musculoskeletal, Integumentary, Endocrine and Eyes/Ears/Nose/Throat Exam Surgical H&P Exam: Normal: HEENT, Normal: Heart, Normal: Lungs, Normal: Extremities, Normal: Abdomen, Normal: Skin and Normal: Neurological Plan Diagnosis/Plan: Unchanged ( InterStim lead removal) I have reviewed the history and physical and performed a pertinent physical examination on my patient. No changes have occurred unless specified. Time Spent With Patient Time: Total time managing care of this patient today ____ minutes.
[2022-08-08 15:08] VITALS: BP 147/76; PULSE 72; RESP 16; TEMP 36.6; O2SAT 96
--- NOTE | 2022-08-08 15:15 | W.PM.OPN ---
Operative Note Operative Note Date of Service: 08/08/22 Narrative: PreOperative Diagnosis: retained InterStim lead Post Operative Diagnosis: retained interstim lead Procedure: removal of interstim lead Surgeon: Dr Marcell Ochoa Anesthesia: local and sedation Indications for procedure: retained InterStim lead Procedure: After informed consent was verified the patient was brought to the operating room and placed in a supine position. Anesthesia was administered per protocol. The patient was prepped and draped in a sterile fashion. Safety pause time-out was performed. Antibiotics being given. C-arm a used to highlight location of remaining lead. Had previously had lead removed however intraforaminal component was left in Situ. Lead located on cm. Scan with local anesthetic infiltrated Small incision made Dissected down bluntly to level of spine long spinal needle used to locate S3 foramen. On palpation the philip end of the lead could be felt. This was grasped with a right angle and removed. Upon removal it appears that to of the electrode areas had slipped off the plastic. The wound was re-examined. It appears that any remnants were intraforaminal. Wound was irrigated Wound was closed with 3-0 Vicryl and skin was closed with 4-0 Monocryl Pathology: lead Drains: none
[2022-08-08 15:23] VITALS: BP 144/79; PULSE 66; RESP 18; TEMP 36.8; O2SAT 99
== END 2022-08-08 15:40 | disposition home or self-care (01) ==
PROVIDERS: PCP Internal Medicine; Visit Provider Urology
PROC: (CPT 64585; principal; 2022-08-08 13:00)
DX: Z45.42 Encounter for adjustment and management of neurostimulator (principal); N32.81 Overactive bladder; G31.09 Other frontotemporal neurocognitive disorder; F02.80 Dementia in other diseases classified elsewhere, unspecified severity, without behavioral disturbance, psychotic disturbance, mood disturbance, and anxiety; F41.1 Generalized anxiety disorder; G40.802 Other epilepsy, not intractable, without status epilepticus; J44.9 Chronic obstructive pulmonary disease, unspecified; Z79.82 Long term (current) use of aspirin; Z79.51 Long term (current) use of inhaled steroids; Z79.899 Other long term (current) drug therapy; Z88.8 Allergy status to other drugs, medicaments and biological substances; Z90.49 Acquired absence of other specified parts of digestive tract; Z87.891 Personal history of nicotine dependence
CPT/HCPCS: 64585; 88300; J0131; J0690; J2795; J3010

== ENCOUNTER 2022-08-24 15:38 | Outpatient (AMB) | payer MEDICARE, MEDICAID, SELFPAY ==
--- NOTE | 2022-08-24 15:52 | MHC.OFFVIS ---
Intake Intake Visit Reasons: 2 week (inter. lead removal) Intake Note: Patient presents here today for a 2 weeks follow-up post op Procurement Specialist Required: No Allergies phenytoin [Dilantin] Allergy (Intermediate, Verified 08/08/22 11:47) gums affected-loosened and lost teeth divalproex sodium [From DEPAKOTE] Allergy (Unknown, Verified 08/08/22 11:47) Unknown-daughter does not remember reaction HPI HPI Comments History of Present Illness Details Molly is a pleasant female. She is seen for the following urologic conditions - urinary urgency frequency - overactive bladder - microscopic hematuria Well-healed incisions We removed most of the lead Microscopic hematuria UA today negative Imaging - 10/17 renal ultrasound negative Cystoscopy - 10/17 no abnormality detected does have some degree of trabeculation Urinary urgency Does respond to tamsulosin PFSH Medical History Frontotemporal dementia Chronic hyponatremia Right shoulder pain Anxiety, generalized COPD, moderate Hematuria Osteoarthritis of right shoulder Epilepsy Surgical History S/P placement of nerve stimulator S/P placement of nerve stimulator History of cataract surgery History of appendectomy History of cholecystectomy Family History Maternal Grandmother Stomach cancer Sister Breast cancer Social History Household Members: Family Housing: House Are you a primary childcare worker to a significant other at home: No Do you presently have visiting nurse or other home services: Yes ([facility]) Alcohol intake: never Patient Tobacco Use Status: Former Tobacco user Quit Date: ~2007 Tobacco use type: Cigarette e-Cigarette/Vaping Use: Never Used Advance Directives Date on File: 02/22/15 service: No Current occupational status: disabled Current occupation: right handed Cognitive needs: No Hearing needs: Yes Vision needs: Yes Review of Systems Const Denies chills and Denies fever(s) Card Reports no additional complaints and Denies syncope Resp Denies cough GI Denies abdominal pain and Denies heartburn Reports as per HPI and Denies change in libido Neuro Denies syncope Psych Denies change in libido Endo Denies change in libido Physical Exam Const General: cooperative, healthy appearing, comfortable and no acute distress Orientation/consciousness: patient oriented x3 HEENT Face and sinus: Yes normal facial exam Mouth: moist mucous membranes Neck Neck: Yes normal visual inspection, Yes full ROM and Yes trachea midline Chest Chest palpation & inspection: normal inspection of the chest Resp Effort & Inspection: normal respiratory effort, able to speak in complete sentences and no respiratory distress GI Inspection: Yes normal to inspection Back/Spine/Pelvis Cervical Spine: normal cervical lordosis Thoracic/Lumbar Spine: thoracic and lumbar spine normal to inspection Skin General skin exam: no rashes or lesions noted Neuro General: patient oriented x3, gait normal, tone normal and moves all extremities Extrem General: Yes normal to inspection and Yes capillary refill normal Results AMB Urinalysis, Automated UA Leukoctes 0 Lele/uL Last Edit by GERARDO Barnard on 08/24/22 16:02 UA Nitrite Negative Last Edit by GERARDO Barnard on 08/24/22 16:02 UA Urobilinogen 0.2 mg/dL Last Edit by GERARDO Barnard on 08/24/22 16:02 UA Protein 0 mg/dL Last Edit by GERARDO Barnard on 08/24/22 16:02 UA pH 6.5 Last Edit by GERARDO Barnard on 08/24/22 16:02 UA Blood 0 Ajay/uL Last Edit by GERARDO Barnard on 08/24/22 16:02 UA Specific [place] 1.010 Last Edit by GERARDO Barnard on 08/24/22 16:02 UA Ketone Negative Last Edit by GERARDO Barnard on 08/24/22 16:02 UA Bilirubin 0 mg/dL Last Edit by GERARDO Barnard on 08/24/22 16:02 UA Glucose 0 mg/dL Last Edit by GERARDO Barnard on 08/24/22 16:02 Results Reviewed Results Reviewed: Laboratory Last Values Urine pH (Auto) 6.5 08/24/22 16:00 Specific [place] (Auto) 1.010 08/24/22 16:00 Urine Protein (Auto) 0 mg/dL 08/24/22 16:00 Glucose (UA)(Auto) 0 mg/dL 08/24/22 16:00 Urine Ketones (Auto) Negative 08/24/22 16:00 Urine Blood (Auto) 0 Ajay/uL 08/24/22 16:00 Urine Nitrite (Auto) Negative 08/24/22 16:00 Urine Bilirubin (Auto) 0 mg/dL 08/24/22 16:00 Urine Urobilinogen (Auto) 0.2 mg/dL 08/24/22 16:00 Leukocyte Esterase (Auto) 0 Lele/uL 08/24/22 16:00 Assessment & Plan Assessment & Plan (1) Overactive bladder: Code(s): N32.81 - Overactive bladder Plan prn f/u Orders: Orders AMB Urinalysis Automated 08/24/22 Z13.9 - Encounter for screening, unspecified Patient Instructions: Imaging studies, laboratory and physical exam results were discussed and reviewed in detail. No major barriers to patient understanding were identified. An opportunity to ask questions regarding the treatment plan was provided. All questions were answered. The patient expressed understanding and agreement with the above treatment plan. The patient is aware they should contact our office by phone for worsening of their current condition or the appearance of new urologic symptoms. Compliance is encouraged with any medications and followup testing that is ordered. It is a privilege to participate in the urologic care of your patient. If you have any questions or concerns regarding treatment for the above conditions, or other urologic issues, please do not hesitate to contact me. The office telephone contact is [phone]. This note is constructed using voice recognition software. While every effort has been made to ensure accuracy marine engineering professor errors may have been included. Yours sincerely, Dr Marcell Ochoa MD, [facility] - Urology Providers of Expert, Compassionate Care for the Genitourinary System Coding Level of Care Code Est Pt Level 3 (43965) Diagnoses Overactive bladder N32.81
== END 2022-08-24 16:15 | disposition home or self-care (01) ==
PROVIDERS: Visit Provider Urology
DX: N32.81 Overactive bladder (principal)
CPT/HCPCS: 99213

== ENCOUNTER → 2022-08-24 15:38 | Outpatient (BNVA) | payer MEDICARE, MEDICAID, SELFPAY | PROVIDERS: Visit Provider Urology | DX: N32.81 Overactive bladder (principal); R31.29 Other microscopic hematuria; R39.15 Urgency of urination; R35.0 Frequency of micturition | CPT/HCPCS: 99212 ==

== ENCOUNTER 2022-10-22 09:50 | Outpatient (REF) | payer MEDICARE, MEDICAID, SELFPAY ==
[2022-10-22 11:11] LABS: MANUAL DIFF FLAG NO
[2022-10-22 11:21] LABS: Basophils Percent Auto 1.1 % (0-2); Eosinophils Absolute Auto 0.1 X10*3/uL (0.0-0.4); Eosinophils Percent Auto 1.9 % (0-4); Hematocrit 43.4 % (37.0-47.0); Hemoglobin 15.8 g/dl (12.0-16.0); Imm Gran Abs Auto 0.01 X10*3/uL (0.00-0.03); Imm Gran Pct Auto 0.3 % (0.0-0.4); Lymphocytes Absolute Auto 0.9 X10*3/uL (1.2-4.9); Lymphocytes Percent Auto 23.9 % (20-40); Mean Corpuscular HGB Conc 36.4 g/dl (31.0-35.0); Mean Corpuscular Hemoglobin 35.5 pg (27.0-33.0); Mean Corpuscular Volume 97.5 fL (80.0-98.0); Mean Platelet Volume 8.2 fL (9.4-12.3); Monocytes Absolute Auto 0.4 X10*3/uL (0.1-1.2); Monocytes Percent Auto 11.1 % (2-11); Neutrophils Absolute Auto 2.3 x10*3/uL (2.0-8.3); Neutrophils Percent Auto 61.7 % (45-73); Platelet Count 202 X10*3/uL (160-400); Red Blood Count 4.45 X10*6/uL (4.20-5.50); Red Cell Distribution Width 12.2 % (11.0-16.0); White Blood Count 3.8 X10*3/uL (4.8-10.8)
[2022-10-22 11:47] LABS: Alanine Aminotransferase 27 U/L (0-31); Albumin Level 3.9 g/dL (3.5-5.0); Alkaline Phosphatase 96 U/L (39-117); Anion Gap 11 (12-20); Aspartate Amino Transferase 27 U/L (5-31); Bilirubin Total 0.4 mg/dL (0.0-1.0); Blood Urea Nitrogen 9 mg/dL (9-16); Calcium 9.1 mg/dL (8.4-10.2); Carbon Dioxide 27 mmol/L (22-29); Chloride 100 mmol/L (96-108); Cholesterol 209 mg/dL (<200); Estimated Glomerular Filt Rate > 60; Glucose Fasting 104 mg/dL (60-99); Glucose Random 104 mg/dL (60-115); HDL Cholesterol 60 mg/dL (>40); LDL Cholesterol Calculated 129 mg/dL (<100); Potassium 4.1 mmol/L (3.3-5.1); Sodium 134 mmol/L (135-145); Total Protein 6.9 g/dL (6.5-8.0); Triglycerides 103 mg/dL (<150)
== END 2022-10-22 09:51 | disposition home or self-care (01) ==
LOC: HO.HMGCLDS 09:50
PROVIDERS: Absent Provider Nurse Practitioner Family; PCP Internal Medicine; Visit Provider Internal Medicine
DX: R10.30 Lower abdominal pain, unspecified (principal); E78.9 Disorder of lipoprotein metabolism, unspecified; E87.1 Hypo-osmolality and hyponatremia; F02.80 Dementia in other diseases classified elsewhere, unspecified severity, without behavioral disturbance, psychotic disturbance, mood disturbance, and anxiety; F41.1 Generalized anxiety disorder; G31.09 Other frontotemporal neurocognitive disorder; G40.909 Epilepsy, unspecified, not intractable, without status epilepticus; N32.81 Overactive bladder
CPT/HCPCS: 36415; 80053; 80061; 85025

== ENCOUNTER 2023-01-04 15:30 | Outpatient (AMB) | payer MEDICARE, MEDICAID, SELFPAY ==
[2023-01-04 15:31] VITALS: BP 132/76; PULSE 73; O2SAT 90; BMI 28.5
--- NOTE | 2023-01-04 15:31 | AM.OFFVISMDC ---
Intake Vital Signs 01/04/23 15:31 Height 5 ft 1 in Weight 151 lb BMI 28.5 BP 132/76 Blood Pressure Location Lt brachial Position Sitting Pulse 73 Pulse Source Pulse Oximeter Pulse Oximetry (%) 90 L Oxygen Delivery Method Room Air Intake Visit Reasons: VINCENT [id number] 09/27/2020 Allergies phenytoin [Dilantin] Allergy (Intermediate, Verified 01/04/23 15:39) gums affected-loosened and lost teeth divalproex sodium [From DEPAKOTE] Allergy (Unknown, Verified 01/04/23 15:39) Unknown-daughter does not remember reaction Medication List - Last Reconciled 01/04/23 by Nila Eldridge MD acetaminophen ER (Tylenol Arthritis Pain) 650 mg PO BID aspirin 81 mg PO DAILY carbamazepine 3 tabs PO BID cholecalciferol (vitamin D3) 25 mcg PO DAILY sveihijuqxz-tafykusoq-wfrudsfu 100-62.5-25 mcg 1 ea inhalation DAILY 90 days melatonin 5 mg PO BEDTIME phenobarbital 97.2 mg PO BEDTIME sertraline 25 mg PO DAILY tamsulosin (Flomax) 0.4 mg PO DAILY 90 days venlafaxine ER 150 mg PO DAILY 90 days HPI HPI Comments History of Present Illness Details AWV Medical/social history reviewed Past medical history reviewed [place] of care / care team list updated Surgical/ hospitalization history reviewed Current medications including OTC and supplements reviewed Family history reviewed Tobacco controlled form updated Alcohol use form updated Illicit drug use in social history reviewed Current diagnosis of depression ?screening updated Appropriate PHQ 2/PHQ-9 completed . Vital signs reviewed Alcohol tobacco drug use reviewed and discussed . MMSE completed, PATIENT HAS DEMENTIA / FAILED . ? Fall risk: ?Assessed Fall history: ?None Have you had any falls with injury in the past year?? No Have you had 2 or more falls in the past year?? No Fall risk assessment completed Home safety discussed with the patient Functional ability assessed and discussed and documented Activities of daily living reviewed and appropriate actions taken . HRA filled out by the patient and reviewed by provider and scanned . Appropriate written screening schedule established . Any health advise needed provided . Advance care planning discussed with the patient , necessary paperwork filled Examination IPPE/AWE: Balance intact Romberg failed Tandem walk failed walk-in turn intact rise from sit to stand intact . ?Hearing ?whisper test failed . Medication list reviewed, patient is stable on medications All other providers patient is seeing discussed and noted . [facility] Medical History Frontotemporal dementia Chronic hyponatremia Right shoulder pain Anxiety, generalized COPD, moderate Hematuria Osteoarthritis of right shoulder Epilepsy Surgical History S/P placement of nerve stimulator S/P placement of nerve stimulator History of cataract surgery History of appendectomy History of cholecystectomy Family History Maternal Grandmother Stomach cancer Sister Breast cancer Social History Household Members: Family Housing: House Are you a primary care team coordinator scheduler to a significant other at home: No Do you presently have visiting nurse or other home services: Yes ([facility]) Alcohol intake: never Patient Tobacco Use Status: Former Tobacco user Quit Date: ~2007 Tobacco use type: Cigarette e-Cigarette/Vaping Use: Never Used Advance Directives Date on File: 02/22/15 service: No Current occupational status: disabled Current occupation: right handed Cognitive needs: No Hearing needs: Yes Vision needs: Yes Questionnaire Medicare Wellness Checkup What is your age?: 82 or older What gender do you identify with?: female During the past 4 weeks, how much have you been bothered by emotional problems such as feeling anxious, depressed, irritable, sad or downhearted, and blue?: moderately During the past 4 weeks, has your physical & emotional health limited your social activities with family, friends, neighbors, or groups?: moderately During the past 4 weeks, how much bodily pain have you generally had?: moderate pain During the past 4 weeks, was someone available to help you if you needed & wanted help?: yes, as much as I wanted During the past 4 weeks, what was the hardest physical activity you could do for at least 2 minutes?: very light Can you get to places out of walking distance without help? (For eg., can you travel alone on buses, taxis or drive your car?): No Can you go shopping for groceries or clothes without someone's help?: No Can you prepare your own meals?: No Can you do your housework without help?: No Because of any health problems, do you need the help of another person with your personal care needs such as eating, bathing, dressing or getting around the house?: Yes Can you handle your own money without help?: No During the past 4 weeks, how would you rate your health in general?: good During the past 4 weeks how have things been going for you?: pretty well Are you having difficulties driving your car?: not applicable, I don't use a car Do you always fasten your seat belt when you are in a car?: yes, usually During past 4 weeks, have you been bothered by the following: never: Trouble eating well?, seldom: Teeth or denture problems?, sometimes: Falling or dizzy when standing up and often: Problems using the telephone? and Tiredness or fatigue? Have you fallen 2 or more times in the past year?: Yes Are you afraid of falling?: Yes Are you a smoker?: no During the past 4 weeks, how many drinks of wine, beer, or other alcoholic beverages did you have?: no alcohol at all Do you exercise for about 20 minutes 3 or more times a week?: yes, most of the time Have you been given information to help with the following?: yes: Hazards in your house that might hurt you? and no: Keeping track of your medications? How often do you have trouble taking medicines the way you have been told to take them?: I always take medicine as prescribed How confident are you that you can control & manage most of your health problems?: not very confident What is your race?: White Activity of Daily Living Bathing - sponge bath, tub bath or shower: receives help in bathing more than one body part (or not bathed) Dressing - getting clothes from closets & drawers, including inner/outer garments & fasteners.: receives help getting clothes or getting dressed, or stays undressed Toileting - going to the 'toilet room' for urine/bowel elimination & cleaning self/arranging clothes: receives help going to toilet room, cleaning self or arranging clothes Transfer: moves in & out of bed and chair without help (may use support object) Continence: has occasional 'accidents' Feeding: feeds self without help Total Score: 2 Information obtained from: informant Using telephone: needs assistance Traveling: dependent Shopping: dependent Preparing meals: dependent Housework: dependent Taking medicine: dependent Managing money: dependent PHQ-9 Over the last 2 weeks, how often have you been bothered by any of the following problems? 1. Little interest or pleasure in doing things: not at all 2. Feeling down, depressed, or hopeless: not at all 3. Trouble falling or staying asleep, or sleeping too much: several days 4. Feeling tired or having little energy: not at all 5. Poor appetite or overeating: not at all 6. Feeling bad about yourself - or that you are a failure or have let yourself or your family down: not at all 7. Trouble concentrating on things, such as reading the newspaper or watching television: not at all 8. Moving or speaking so slowly that other people could have noticed. Or the opposite - being so fidgety or restless that you have been moving around a lot more than usual: not at all 9. Thoughts that you would be better off or of hurting yourself in some way: not at all Total score: 1 Depression Screening Interpretation: Negative Depression Screening Done: Yes 50741 - PHQ-9 Billing: Yes Source: Developed by Drs. Isidoro Gonzalez, Jennifer Forrester, Ian Nix and colleagues, with an educational alex from [employer]. Review of Systems Const Denies chills and Denies fever(s) ENT Denies epistaxis and Denies nasal discharge Card Denies chest pain Resp Denies chest congestion, Denies cough and Denies hemoptysis GI Denies diarrhea and Denies nausea Skin/Breast Denies rash Neuro Reports no additional complaints Psych Reports no additional complaints Endo Reports no additional complaints Physical Exam Vital Signs: Last Vital Signs Pulse 73 01/04/23 15:31 BP 132/76 01/04/23 15:31 Pulse Ox 90 L 01/04/23 15:31 Oxygen Delivery Method Room Air 01/04/23 15:31 BMI result Body Mass Index 28.5 Const General: cooperative, comfortable and no acute distress HEENT Head: Yes normocephalic Eyes General: appearance normal, both eyes and all related structures Neck Other: Supple Neck: Yes supple Resp Effort & Inspection: normal respiratory effort, no cough and no stridor Cardio Rhythm: regular rhythm Heart sounds: S1 normal heart sound present and S2 normal heart sound present Skin General skin exam: turgor normal Neuro Other: Motor sensory intact General: tone normal and moves all extremities Immunizations pneumoc 20-stephanie conj-dip cr(PF) 0.5 mL IM syringe Performing Provider: Nila Eldridge MD Performing Location[place] [facility] Administered by: REMY Cabrera on 01/04/23 16:14 Dose Route Admin Location Dispensed Lot Number Expiration Date NDC Filter Helper 0.5 mL IM Left Deltoid 0.5 mL [id number] 09/28/23 [employer] VIS Given Date VIS Provided VIS Publication Date 01/04/23 Single Vaccine 21 Eligibility Eligibility Date Funding Source Not [facility] Eligible 01/04/23 Private Assessment & Plan Assessment & Plan (1) Medicare annual wellness visit, subsequent: Code(s): Z00.00 - Encounter for general adult medical examination without abnormal findings (2) Anxiety, generalized: Code(s): F41.1 - Generalized anxiety disorder (3) COPD, moderate: Code(s): J44.9 - Chronic obstructive pulmonary disease, unspecified (4) Overactive bladder: Code(s): N32.81 - Overactive bladder (5) Seizure disorder: Code(s): G40.909 - Epilepsy, unspecified, not intractable, without status epilepticus (6) Frontal lobe dementia: Code(s): G31.09 - Other frontotemporal neurocognitive disorder; F02.80 - Dementia in other diseases classified elsewhere, unspecified severity, without behavioral disturbance, psychotic disturbance, mood disturbance, and anxiety Plan Patient is 82-year-old female came in today for Medicare wellness visit and regular follow-up Patient is on venlafaxine for anxiety, she is seeing Dr. Bernardo for the management of severe dementia Recently she was started on sertraline as well, I have talked to her daughter I thing it will be better if Az take over venlafaxine as well. She is also using a maintenance inhaler for the management of COPD/asthma she was supposed to see Dr. Cisneros but has not I have sent inhaler for the rest of the year. Patient is seeing Dr. Ochoa for the management of urinary incontinence She had developed groin rash I have sent a statin cream patient may use that every night until rash is better and then after that start using diaper rash cream She is using diapers because of urine incontinence. Labs were done last visit reviewed again she has slightly impaired fasting sugar H&H is stable Orders: Orders Pneumococcal 20 Immunization Today Z23 - Encounter for immunization Medications: New nystatin 1 appl topical DAILY 30 grams 1RF 30 days nystatin 1 appl topical DAILY 30 grams 1RF 30 days Refilled gdeeazjvpna-ghkxbsxqx-njqbotht 100-62.5-25 mcg 1 ea inhalation DAILY 90 days 3 multiple units 0RF mxylkqadbdd-dteufcbvd-wlwbmiie 100-62.5-25 mcg 1 ea inhalation DAILY 3 multiple units 1RF 90 days Quality Reporting (2019) Depression/Bipolar (159/160/161/177) PHQ-9: Total score: 1 Coding Level of Care Code Medicare Subsequent (G0439) Est Pt Level 3 (34524) Diagnoses Medicare annual wellness visit, subsequent Z00.00 Anxiety, generalized F41.1 COPD, moderate J44.9 Overactive bladder N32.81 Seizure disorder G40.909 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; F02.80 Advance Care Planning Advance Care Planning discussion: Declined forms
== END 2023-01-04 16:18 | disposition home or self-care (01) ==
PROVIDERS: Visit Provider Internal Medicine
DX: Z23 Encounter for immunization (principal)
CPT/HCPCS: 90471; 90677; 99213; G0439

== ENCOUNTER 2023-03-27 09:43 | Outpatient (AMB) | payer MEDICARE, MEDICAID, SELFPAY ==
[2023-03-27 11:41] VITALS: BP 132/80; PULSE 65; TEMP 36.5; O2SAT 100
--- NOTE | 2023-03-27 11:41 | AM.OFFWIN_ITS ---
Intake Vital Signs 03/27/23 11:41 Height 5 ft 1 in BP 132/80 Blood Pressure Location Lt brachial Position Sitting Pulse 65 Pulse Source Pulse Oximeter Temp 97.7 F Temp Source Oral Pulse Oximetry (%) 100 Oxygen Delivery Method Room Air Intake Visit Reasons: EP Congestion, cough, Runny Nose [id number] Intake Note: pt is here today for congestion, cough, runny nose, pt states symptoms started Monday Patient Tobacco Use Status: Former Tobacco user Quit Date: ~2007 Allergies phenytoin [Dilantin] Allergy (Intermediate, Verified 03/27/23 11:49) gums affected-loosened and lost teeth divalproex sodium [From DEPAKOTE] Allergy (Unknown, Verified 03/27/23 11:49) Unknown-daughter does not remember reaction Do you need a note to return to daycare/school/sports/work: Yes HPI HPI Comments History of Present Illness Details Patient presents to the walk-in today, accompanied by her daughter, with complaints of and sinus congestion for 5 days Denies chest pain, shortness of breath, fevers, chills, nausea, vomiting, palpitations, weakness, dizziness Cough minimally productive, clear/yellow sputum. History of COPD, uses daily inhaler. She has used albuterol MDI in the past but is no longer prescribed one. Patient of [facility] pulmonary. Patient has dementia, her daughter is her primary vending machine servicer. She kept her from until daycare last and Monday due to the cough Patient reports that there were several other persons in the transport van last week coughing and not covering the mouth [facility] Medical History Frontotemporal dementia Chronic hyponatremia Right shoulder pain Anxiety, generalized COPD, moderate Hematuria Osteoarthritis of right shoulder Epilepsy Surgical History S/P placement of nerve stimulator S/P placement of nerve stimulator History of cataract surgery History of appendectomy History of cholecystectomy Family History Maternal Grandmother Stomach cancer Sister Breast cancer Social History Household Members: Family Housing: House Are you a primary healthcare business analyst to a significant other at home: No Do you presently have visiting nurse or other home services: Yes ([facility]) Alcohol intake: never Patient Tobacco Use Status: Former Tobacco user Quit Date: ~2007 Tobacco use type: Cigarette e-Cigarette/Vaping Use: Never Used Advance Directives Date on File: 02/22/15 service: No Current occupational status: disabled Current occupation: right handed Cognitive needs: No Hearing needs: Yes Vision needs: Yes Review of Systems Const All systems reviewed & are unremarkable except as noted in HPI and below Physical Exam Vital Signs: Last Vital Signs Temp 97.7 F 03/27/23 11:41 Pulse 65 03/27/23 11:41 BP 132/80 03/27/23 11:41 Pulse Ox 100 03/27/23 11:41 Oxygen Delivery Method Room Air 03/27/23 11:41 General: awake, alert, answers questions appropriately. Skin: warm, dry, intact HEENT: TMs intact bilaterally, without erythema or exudate. Posterior pharynx without erythema or exudate. Sclera without icterus or injection. Cardiac: External chest normal in appearance. Respiratory: +cough. LSCTAB, diminished at the bases. Abdomen: without gross distension. Neurological: Oriented to person, place, time and situation. Thought process intact. Psychiatric: Appropriate mood and affect. Good judgment and insight. Assessment & Plan Assessment & Plan (1) Upper respiratory tract infection: Code(s): J06.9 - Acute upper respiratory infection, unspecified Plan URI, no abx warranted. Benzonatate 100mg po bid as needed Albuterol MDI as needed Rest, drink plenty of fluids, tylenol or motrin as needed. Follow up with pcp or in clinic for any new or worsening symptoms. Go to ER for shortness of breath, chest pain, palpitations, weakness, dizziness. Medications: New benzonatate 100 mg PO BID 10 days PRN 20 caps 0RF cough albuterol sulfate 90 mcg/actuation 1 inh inhalation QID 30 days PRN 6.7 grams 0RF shortness of breath or wheezing Coding Level of Care Code Est Pt Level 4 (38924) Diagnoses Upper respiratory tract infection J06.9
== END 2023-03-27 13:38 | disposition home or self-care (01) ==
PROVIDERS: PCP Internal Medicine; Visit Provider Registered Nurse Emergency
DX: J06.9 Acute upper respiratory infection, unspecified (principal)
CPT/HCPCS: 99213

== ENCOUNTER 2023-03-30 15:10 | Outpatient (AMB) | payer MEDICARE, MEDICAID, SELFPAY ==
[2023-03-30 15:29] VITALS: BP 126/70; PULSE 77; TEMP 36.2; O2SAT 96; BMI 26.4
--- NOTE | 2023-03-30 15:29 | AM.OFFWIN_ITS ---
Intake Vital Signs 03/30/23 15:29 Height 5 ft 1 in Weight 140 lb BMI 26.4 BP 126/70 Blood Pressure Location Lt brachial Position Sitting Pulse 77 Pulse Source Pulse Oximeter Temp 97.2 F Temp Source Temporal Artery Scan Pulse Oximetry (%) 96 Intake Visit Reasons: EP cough congestion fatigued Intake Note: pt is here today for cough congestion fatigued started last Monday Patient Tobacco Use Status: Former Tobacco user Quit Date: ~2007 Allergies phenytoin [Dilantin] Allergy (Intermediate, Verified 03/30/23 15:30) gums affected-loosened and lost teeth divalproex sodium [From DEPAKOTE] Allergy (Unknown, Verified 03/30/23 15:30) Unknown-daughter does not remember reaction Do you need a note to return to daycare/school/sports/work: Yes HPI HPI Comments History of Present Illness Details 82 y/o female presents to walk in clinic with c/o URI symptoms since Monday. Reports productive cough. [facility] Medical History Frontotemporal dementia Chronic hyponatremia Right shoulder pain Anxiety, generalized COPD, moderate Hematuria Osteoarthritis of right shoulder Epilepsy Surgical History S/P placement of nerve stimulator S/P placement of nerve stimulator History of cataract surgery History of appendectomy History of cholecystectomy Family History Maternal Grandmother Stomach cancer Sister Breast cancer Social History Household Members: Family Housing: House Are you a primary critical care physician to a significant other at home: No Do you presently have visiting nurse or other home services: Yes ([facility]) Alcohol intake: never Patient Tobacco Use Status: Former Tobacco user Quit Date: ~2007 Tobacco use type: Cigarette e-Cigarette/Vaping Use: Never Used Advance Directives Date on File: 02/22/15 service: No Current occupational status: disabled Current occupation: right handed Cognitive needs: No Hearing needs: Yes Vision needs: Yes Review of Systems Const All systems reviewed & are unremarkable except as noted in HPI and below Physical Exam Vital Signs: Last Vital Signs Temp 97.2 F 03/30/23 15:29 Pulse 77 03/30/23 15:29 BP 126/70 03/30/23 15:29 Pulse Ox 96 03/30/23 15:29 BMI result Body Mass Index 26.4 Const General: comfortable HEENT Head: Yes normal to inspection and Yes normocephalic Ears: external ears normal and TM's normal bilaterally General nose exam: Normal external nose present and Normal nasal mucous membranes and turbinates present Face and sinus: Yes sinuses nontender Throat: Yes tonsils normal, Yes uvula midline and Yes postnasal drainage Resp Effort & Inspection: normal respiratory effort Auscultation: clear to auscultation bilaterally Cardio Rate: regular rate Rhythm: regular rhythm Assessment & Plan Assessment & Plan (1) Upper respiratory tract infection: Code(s): J06.9 - Acute upper respiratory infection, unspecified Qualifiers: URI type: unspecified viral URI Qualified Code(s): J06.9 - Acute upper respiratory infection, unspecified Plan: - OTC cold/cough remedies - Warm fluids with honey - Acetamin for pain relief. (2) Cough in adult: Code(s): R05.9 - Cough, unspecified Plan: - OTC cold/cough remedies - Warm fluids with honey - Acetamin for pain relief. Plan - OTC cold/cough remedies - Warm fluids with honey - Acetamin for pain relief. Medications: New azithromycin 500 mg PO DAILY 5 days 5 tabs 0RF Refilled benzonatate 100 mg PO BID 10 days PRN 20 caps 0RF cough Coding Level of Care Code Est Pt Level 3 (95315) Diagnoses Viral upper respiratory tract infection J06.9 URI type: unspecified viral URI Cough in adult R05.9 Time Spent (min) 15
== END 2023-03-30 17:12 | disposition home or self-care (01) ==
PROVIDERS: PCP Internal Medicine; Visit Provider Nurse Practitioner Family
DX: J06.9 Acute upper respiratory infection, unspecified (principal); R05.9 Cough, unspecified
CPT/HCPCS: 99213

== ENCOUNTER 2023-03-31 14:15 | Outpatient (AMB) | payer MEDICARE, MEDICAID, SELFPAY ==
--- NOTE | 2023-03-31 14:17 | MHC.OFFVIS ---
Intake Intake Visit Reasons: med review Intake Note: Patient is Present for Telephone Follow Up Medication Review Urology Med: Tamsulosin Antibiotic Allergy:None Blood Thinner: Aspirin Allergies phenytoin [Dilantin] Allergy (Intermediate, Verified 03/31/23 14:18) gums affected-loosened and lost teeth divalproex sodium [From DEPAKOTE] Allergy (Unknown, Verified 03/31/23 14:18) Unknown-daughter does not remember reaction Medication List - Last Reconciled 03/31/23 by Marcell Ochoa MD acetaminophen ER (Tylenol Arthritis Pain) 650 mg PO BID albuterol sulfate 90 mcg/actuation 1 inh inhalation QID PRN 30 days aspirin 81 mg PO DAILY azithromycin 500 mg PO DAILY 5 days benzonatate 100 mg PO BID PRN 10 days carbamazepine 3 tabs PO BID cholecalciferol (vitamin D3) 25 mcg PO DAILY vfnetdemyyl-ibbgcxxvp-qscwtmzz 100-62.5-25 mcg 1 ea inhalation DAILY 90 days nystatin 1 appl topical DAILY 30 days phenobarbital 97.2 mg PO BEDTIME sertraline 50 mg PO DAILY tamsulosin (Flomax) 0.4 mg PO DAILY 90 days venlafaxine ER 150 mg PO DAILY 90 days HPI HPI Comments History of Present Illness Details Molly is a pleasant female. She is seen for the following urologic conditions - urinary urgency frequency - overactive bladder - microscopic hematuria Telemedicine Evaluation 15 min Consultation [employer] Herm[employer] Video attempted Has q.2 hours voiding at day program Q.2 hours voiding at night Trial gemtesa Microscopic hematuria UA today negative Imaging - 10/17 renal ultrasound negative Cystoscopy - 10/17 no abnormality detected does have some degree of trabeculation Urinary urgency Multiple prior therapies for overactive bladder Failed multiple and cholinergics including oxybutynin, VESIcare, solifenacin Does respond to tamsulosin Prior use of InterStim which was removed [facility] Medical History Frontotemporal dementia Chronic hyponatremia Right shoulder pain Anxiety, generalized COPD, moderate Hematuria Osteoarthritis of right shoulder Epilepsy Surgical History S/P placement of nerve stimulator S/P placement of nerve stimulator History of cataract surgery History of appendectomy History of cholecystectomy Family History Maternal Grandmother Stomach cancer Sister Breast cancer Social History Household Members: Family Housing: House Are you a primary managed care manager to a significant other at home: No Do you presently have visiting nurse or other home services: Yes ([facility]) Alcohol intake: never Patient Tobacco Use Status: Former Tobacco user Quit Date: ~2007 Tobacco use type: Cigarette e-Cigarette/Vaping Use: Never Used Advance Directives Date on File: 02/22/15 service: No Current occupational status: disabled Current occupation: right handed Cognitive needs: No Hearing needs: Yes Vision needs: Yes Review of Systems Const All systems reviewed & are unremarkable except as noted in HPI and below Reports no additional complaints Resp Reports no additional complaints GI Reports no additional complaints Reports as per HPI Musc Reports no additional complaints Physical Exam Telemedicine evaluation Appropriate responses Regular breathing rate and rhythm HEENT Head: Yes normal to inspection Ears: hearing grossly normal bilaterally Eyes General: appearance normal, both eyes and all related structures Neck Neck: Yes normal visual inspection Chest Chest palpation & inspection: normal inspection of the chest Resp Effort & Inspection: normal respiratory effort and able to speak in complete sentences Assessment & Plan Assessment & Plan (1) Overactive bladder: Code(s): N32.81 - Overactive bladder Plan Two month follow-up PVR orifice Medications: New vibegron (Gemtesa) 75 mg PO DAILY 30 days 30 tabs 1RF N32.81 - Overactive bladder Patient Instructions: Imaging studies, laboratory and physical exam results were discussed and reviewed in detail. No major barriers to patient understanding were identified. An opportunity to ask questions regarding the treatment plan was provided. All questions were answered. The patient expressed understanding and agreement with the above treatment plan. The patient is aware they should contact our office by phone for worsening of their current condition or the appearance of new urologic symptoms. Compliance is encouraged with any medications and followup testing that is ordered. It is a privilege to participate in the urologic care of your patient. If you have any questions or concerns regarding treatment for the above conditions, or other urologic issues, please do not hesitate to contact me. The office telephone contact is [phone]. This note is constructed using voice recognition software. While every effort has been made to ensure accuracy certified vehicle fire investigator errors may have been included. Yours sincerely, Dr Marcell Ochoa MD, [facility] - Urology Providers of Expert, Compassionate Care for the Genitourinary System Telehealth Telehealth Location of provider rendering services: practice address Location of patient: address on file Patient Identification confirmed using: Name, : Yes Telehealth method: video Patient verbally consented to treatment: Yes Patient verbally consented to billing insurance company: Yes Patient informed of any privacy concerns related to visit: Yes Coding Level of Care Code Tele Est Pt Level 4 (48787) Diagnoses Overactive bladder N32.81
== END 2023-03-31 14:32 | disposition home or self-care (01) ==
LOC: HO.HUSH 14:15
PROVIDERS: PCP Internal Medicine; Visit Provider Urology
DX: N32.81 Overactive bladder (principal)
CPT/HCPCS: 99214

== ENCOUNTER → 2023-03-31 14:15 | Outpatient (BNVA) | payer MEDICARE, MEDICAID, SELFPAY | PROVIDERS: PCP Internal Medicine; Visit Provider Urology ==

== ENCOUNTER 2023-04-10 11:08 | Outpatient (AMB) | payer MEDICARE, MEDICAID, SELFPAY ==
[2023-04-10 11:13] VITALS: BP 128/70; PULSE 73; TEMP 36.3; O2SAT 99
--- NOTE | 2023-04-10 11:13 | AM.OFFWIN_ITS ---
Intake Vital Signs 04/10/23 11:13 Height 5 ft 1 in BP 128/70 Blood Pressure Location Lt brachial Position Sitting Pulse 73 Pulse Source Pulse Oximeter Temp 97.4 F Temp Source Temporal Artery Scan Pulse Oximetry (%) 99 Oxygen Delivery Method Room Air Intake Visit Reasons: EP fell hit head down RT shoulder Intake Note: pt is here today for fell hit head down rt shoulder today Patient Tobacco Use Status: Former Tobacco user Quit Date: ~2007 Allergies phenytoin [Dilantin] Allergy (Intermediate, Verified 04/10/23 11:57) gums affected-loosened and lost teeth divalproex sodium [From DEPAKOTE] Allergy (Unknown, Verified 04/10/23 11:57) Unknown-daughter does not remember reaction Medication List - Last Reconciled 04/10/23 by Gaurav Hastings MD acetaminophen ER (Tylenol Arthritis Pain) 650 mg PO BID albuterol sulfate 90 mcg/actuation 1 inh inhalation QID PRN 30 days aspirin 81 mg PO DAILY azithromycin 500 mg PO DAILY 5 days benzonatate 100 mg PO BID PRN 10 days carbamazepine 3 tabs PO BID cholecalciferol (vitamin D3) 25 mcg PO DAILY pfxzmxznxny-cnoltuwzc-gspznqdl 100-62.5-25 mcg 1 ea inhalation DAILY 90 days nystatin 1 appl topical DAILY 30 days phenobarbital 97.2 mg PO BEDTIME sertraline 50 mg PO DAILY venlafaxine ER 150 mg PO DAILY 90 days vibegron (Gemtesa) 75 mg PO DAILY 30 days Do you need a note to return to daycare/school/sports/work: No HPI EP fell hit head down RT shoulder HPI Details 82-year-old female presents to the [facility] for a sick visit. She is accompanied by her daughter. Patient at baseline has dementia. According to the daughter, she can not give reliable history. Patient lives with her daughter. Daughter reports that patient had a fall this morning in her bedroom. She got up on her own without any assistance. At baseline, patient has extensive arthritis in the right shoulder. Patient is reporting worsening stiffness in the right shoulder and in the neck. Able to ambulate without difficulty. [facility] Medical History Frontotemporal dementia Chronic hyponatremia Right shoulder pain Anxiety, generalized COPD, moderate Hematuria Osteoarthritis of right shoulder Epilepsy Surgical History S/P placement of nerve stimulator S/P placement of nerve stimulator History of cataract surgery History of appendectomy History of cholecystectomy Family History Maternal Grandmother Stomach cancer Sister Breast cancer Social History Household Members: Family Housing: House Are you a primary care transitions nurse to a significant other at home: No Do you presently have visiting nurse or other home services: Yes ([facility]) Alcohol intake: never Patient Tobacco Use Status: Former Tobacco user Quit Date: ~2007 Tobacco use type: Cigarette e-Cigarette/Vaping Use: Never Used Advance Directives Date on File: 02/22/15 service: No Current occupational status: disabled Current occupation: right handed Cognitive needs: No Hearing needs: Yes Vision needs: Yes Physical Exam Vital Signs: Last Vital Signs Temp 97.4 F 04/10/23 11:13 Pulse 73 04/10/23 11:13 BP 128/70 04/10/23 11:13 Pulse Ox 99 04/10/23 11:13 Oxygen Delivery Method Room Air 04/10/23 11:13 Const General: cooperative and healthy appearing Nutritional Appearance: well nourished Orientation/consciousness: patient oriented x3 Limitations: no limitations HEENT Head: Yes normal to inspection Eyes General: appearance normal, both eyes and all related structures Neck Neck: Yes normal visual inspection Chest Chest palpation & inspection: normal palpation of entire chest wall Resp Effort & Inspection: normal respiratory effort Neuro General: patient oriented x3 Extrem Other: Left arm: Full range of motion. Right arm: Limited range of motion. No visible bruising Assessment & Plan Assessment & Plan (1) Sprain of right shoulder: Code(s): S43.401A - Unspecified sprain of right shoulder joint, initial encounter Plan: X-ray images were personally reviewed by me. No fracture seen. Patient was reassured. Orders: Orders XR shoulder RT min 2V Today S43.401A - Unspecified sprain of right shoulder joint, initial encounter Coding Level of Care Code Est Pt Level 4 (88562) Diagnoses Sprain of right shoulder S43.401A
== END 2023-04-10 12:22 | disposition home or self-care (01) ==
PROVIDERS: PCP Internal Medicine; Visit Provider Internal Medicine
DX: S43.401A Unspecified sprain of right shoulder joint, initial encounter (principal); W19.XXXA Unspecified fall, initial encounter
CPT/HCPCS: 99214

== ENCOUNTER 2023-04-10 11:54 | Outpatient (REF) | payer MEDICARE, MEDICAID, SELFPAY ==
--- NOTE | ~2023-04-10 | XR_ITS ---
EXAMINATION: XR SHOULDER, RIGHT CLINICAL INFORMATION: Right shoulder sprain. COMPARISON: Right shoulder radiographs dated 07/13/2020. TECHNIQUE: AP, scapular Y, and Grashey views of the right shoulder. FINDINGS: Severe glenohumeral joint space narrowing with bony remodeling, subchondral sclerosis, and large marginal osteophytes are redemonstrated, progressed when compared to the prior examination. Small acromioclavicular marginal osteophytes, slightly progressed. No acute fracture or dislocation. No concerning lytic or blastic osseous lesion. Probable ossified loose body within the subcoracoid recess measuring up to 1.0 cm. XR/XR shoulder RT min 2V IMPRESSION: 1. Severe glenohumeral osteoarthritis with bony remodeling, progressed when compared to the prior examination. 2. Mild acromioclavicular osteoarthritis, slightly progressed. Probable ossified loose body within the subcoracoid recess measuring up to 1.0 cm.
== END 2023-04-10 11:55 | disposition home or self-care (01) ==
LOC: HO.HMGCX 11:54
PROVIDERS: Visit Provider Internal Medicine
DX: S43.401A Unspecified sprain of right shoulder joint, initial encounter (principal); X58.XXXA Exposure to other specified factors, initial encounter; Y93.9 Activity, unspecified; Y92.9 Unspecified place or not applicable; Y99.9 Unspecified external cause status
CPT/HCPCS: 73030

== ENCOUNTER 2023-04-12 13:35 | Emergency (ER) | payer MEDICARE, MEDICAID, SELFPAY ==
--- NOTE | ~2023-04-12 | CT_ITS ---
EXAMINATION: CT brain and CT cervical spine without contrast. CLINICAL INDICATION: Fall, rule out bleed. COMPARISON: CT brain 03/18/2022. TECHNIQUE: 5 mm thin axial and reformatted 2 mm thin sagittal and coronal images of brain were obtained. Subsequently axial 3 mm thin and reformatted 2 mm thin sagittal and coronal images of cervical spine were obtained. DLP 806. This CT examination was performed using dose optimization technique as appropriate, variously including the following: Automated exposure control Adjustment of MA and/or KV according to patient size(this includes techniques or standardized protocols for targeted exams where dose is matched to indication/reason for exam; extremities or head. Use of iterative reconstruction techniques. FINDINGS: Brain: There is no acute intra-axial, extra-axial bleed, masses or midline shift. There is no acute infarction evolution. There is no edema. Lacunar infarction is noted in the right caudate nucleus. There is extensive periventricular white matter changes in both cerebral hemispheres but no mass effect. The lateral ventricles are symmetrical but moderately enlarged. Bone windows reveal no calvarial abnormality. There is no scalp soft tissue abnormality. Bilateral paranasal sinuses and mastoid air cells are well-aerated. Cervical spine: Sagittal reconstructed images there is mild straightening of cervical lordosis. The vertebral heights, alignment and disc heights are normal. The craniovertebral junction and C1-C2 alignment is normal. There is anterior grade 1 anterolisthesis C3 over C4 and C7 over T1. Rest rest of the vertebral alignment is normal. There is severe loss of C4-C5, C5-C6 and C6-C7 disc heights with vacuum disc phenomena, ventral and posterior spondylosis. No aggressive lytic or sclerotic process seen. The prevertebral and paravertebral soft tissues are normal. Moderate left moderate C2-C3, C3-C4 facet joint arthropathy is noted. There is mild neural foraminal narrowing on the left at C3-C4, bilaterally at C4-C5, C5-C6 and C6-C7 disc levels. The prevertebral and paravertebral soft tissues are normal. The central tracheal airway is clear. There is a 3 mm right apical nodule axial image 50/6. Bilateral TM joints are symmetrical and normal. Bilateral mastoid sinuses are well-aerated and clear. Visualized middle and external ear appears unremarkable. CT/CT cervical spine wo IV con IMPRESSION: 1. No acute intracranial process seen. 2. Age-related cerebral volume loss with chronic small vessel ischemic changes in both cerebral hemispheres. There is a lacunar infarction right caudate nucleus. 3. There is no acute fracture, dislocation or subluxation seen in cervical spine. There is grade 1 anterolisthesis C3 over C4 and C7 over T1. 4. There are degenerative disc changes C4-C5, C5-C6 and C6-C7 disc levels with ventral and posterior spondylosis. No lytic or sclerotic process seen.
--- NOTE | ~2023-04-12 | XR_ITS ---
EXAMINATION: XR SHOULDER, RIGHT CLINICAL INFORMATION: Injury rule out fracture. COMPARISON: X-ray the right shoulder April 10, 2023 TECHNIQUE: 3 views of the right shoulder FINDINGS: Minimal joint: Severe arthrosis with the severe joint space narrowing resulting in a ieee-[id number]-ejav appearance along with marginal osteophytes along the inferior aspect joint. Loose body present within the subscapularis recess unchanged. Mild arthrosis of the acromioclavicular joint. Surrounding bone and soft tissues unremarkable. XR/XR shoulder RT min 2V IMPRESSION: 1. No acute abnormality. 2. Severe arthrosis of the right shoulder unchanged.
[2023-04-12 14:03] VITALS: BP 132/90; PULSE 75; RESP 18; TEMP 36.7; O2SAT 96; BMI 25.4
--- NOTE | 2023-04-12 14:09 | ED_ITS ---
HPI - General Adult General Chief complaint: Weakness Stated complaint: Unsteady on Feet Fall on 04/10/23 Related Data Home Medications Medication Instructions Recorded Confirmed phenobarbital 97.2 mg tablet 97.2 mg PO BEDTIME 07/13/20 04/10/23 aspirin 81 mg tablet,delayed 81 mg PO DAILY 04/08/21 04/10/23 release cholecalciferol (vitamin D3) 25 25 mcg PO DAILY 04/09/21 04/10/23 mcg (1,000 unit) capsule carbamazepine 200 mg tablet 3 tab PO BID 03/18/22 04/10/23 acetaminophen 650 mg 650 mg PO BID 04/29/22 04/10/23 tablet,extended release (Tylenol Arthritis Pain) sertraline 50 mg tablet 50 mg PO DAILY 03/30/23 04/10/23 Previous Rx's Medication Instructions Recorded fluticasone fur. 100 mcg-umeclid 1 ea inhalation DAILY 90 days #3 01/04/23 62.5 mcg-vilant 25 mcg multiple units inhalat.powder nystatin 100,000 unit/gram topical 1 appl topical DAILY 30 days #30 01/04/23 cream grams venlafaxine 150 mg 150 mg PO DAILY 90 days #90 caps 02/06/23 capsule,extended release 24 hr albuterol sulfate 90 mcg/actuation 1 inh inhalation QID PRN shortness 03/27/23 aerosol inhaler of breath or wheezing 30 days #6.7 grams azithromycin 500 mg tablet 500 mg PO DAILY 5 days #5 tabs 03/30/23 benzonatate 100 mg capsule 100 mg PO BID PRN cough 10 days 03/30/23 #20 caps vibegron 75 mg tablet (Gemtesa) 75 mg PO DAILY 30 days #30 tabs 03/31/23 Allergies Allergy/AdvReac Type Severity Reaction Status Date / Time phenytoin [Dilantin] Allergy Intermediate gums Verified 04/12/23 14:03 affected-loosened and lost teeth divalproex sodium Allergy Unknown Unknown-daughter Verified 04/12/23 14:03 [From DEPAKOTE] does not remember reaction PMFSH Past Medical History Medical History Frontotemporal dementia Chronic hyponatremia Right shoulder pain Anxiety, generalized COPD, moderate Hematuria Osteoarthritis of right shoulder Epilepsy Surgical History S/P placement of nerve stimulator S/P placement of nerve stimulator History of cataract surgery History of appendectomy History of cholecystectomy Family History Family History Maternal Grandmother Stomach cancer Sister Breast cancer Social History Social History Household Members: Family Housing: House Are you a primary neonatal intensive care nurse to a significant other at home: No Do you presently have visiting nurse or other home services: Yes ([facility]) Alcohol intake: never Patient Tobacco Use Status: Former Tobacco user Quit Date: ~2007 Tobacco use type: Cigarette e-Cigarette/Vaping Use: Never Used Advance Directives Date on File: 02/22/15 service: No Current occupational status: disabled Current occupation: right handed Cognitive needs: No Hearing needs: Yes Vision needs: Yes Physical Exam ED Vital Signs: Vital Signs - 24 hr 04/12/23 14:03 Temperature 98.1 F Pulse Rate 75 Respiratory Rate 18 Blood Pressure 132/90 H Pulse Oximetry 96 Oxygen Delivery Method Room Air BMI result Body Mass Index 25.4 Course Course Course Narrative: Patient complains of right shoulder pain, head strike and some neck pain after a fall, she has also been very unsteady on her feet compared to normal per her daughter labs EKG and imaging are ordered This is rapid medical exam done in triage pending full evaluation and dispo by ER provider Discharge Plan Discharge Prescriptions: No Action venlafaxine 150 mg capsule,extended release 24hr 150 mg PO DAILY 90 Days Qty: 90 0RF carbamazepine 200 mg tablet 3 tab PO BID acetaminophen [Tylenol Arthritis Pain] 650 mg tablet extended release 650 mg PO BID sertraline 50 mg tablet 50 mg PO DAILY azithromycin 500 mg tablet 500 mg PO DAILY 5 Days Qty: 5 0RF benzonatate 100 mg capsule 100 mg PO BID PRN (Reason: cough) 10 Days Qty: 20 0RF cholecalciferol (vitamin D3) 25 mcg (1,000 unit) capsule 25 mcg PO DAILY nystatin 100,000 unit/gram cream 1 appl topical DAILY 30 Days Qty: 30 1RF gwxcbdcdlwg-clowoukov-hbxeozvm 100-62.5-25 mcg blister with device 1 ea inhalation DAILY 90 Days Qty: 3 1RF albuterol sulfate 90 mcg/actuation HFA aerosol inhaler 1 inh inhalation QID PRN (Reason: shortness of breath or wheezing) 30 Days Qty: 6.7 0RF phenobarbital 97.2 mg tablet 97.2 mg PO BEDTIME aspirin 81 mg tablet,delayed release (DR/EC) 81 mg PO DAILY Gemtesa 75 mg tablet 75 mg PO DAILY 30 Days Qty: 30 1RF
--- NOTE | 2023-04-12 14:12 | ECG_ITS ---
Test Reason : weakness Blood Pressure : / mmHG Vent. Rate : 074 BPM Atrial Rate : 074 BPM P-R Int : 168 ms QRS Dur : 068 ms QT Int : 372 ms P-R-T Axes : 029 061 048 degrees QTc Int : 412 ms Artifact Normal sinus rhythm Poor data quality When compared with ECG of 18-MAR-2022 18:37, Poor data quality in current ECG precludes serial comparison Referred By: Remy Romeo Electronically Signed By:Daniele Castaneda
[2023-04-12 14:49] LABS: MANUAL DIFF FLAG NO
[2023-04-12 14:52] LABS: Basophils Percent Auto 0.6 % (0-2); Eosinophils Absolute Auto 0.1 X10*3/uL (0.0-0.4); Eosinophils Percent Auto 0.9 % (0-4); Hematocrit 41.6 % (37.0-47.0); Hemoglobin 14.3 g/dl (12.0-16.0); Imm Gran Abs Auto 0.02 X10*3/uL (0.00-0.03); Imm Gran Pct Auto 0.3 % (0.0-0.4); Mean Corpuscular HGB Conc 34.4 g/dl (31.0-35.0); Mean Corpuscular Hemoglobin 34.1 pg (27.0-33.0); Mean Corpuscular Volume 99.3 fL (80.0-98.0); Mean Platelet Volume 8.3 fL (9.4-12.3); Monocytes Absolute Auto 0.6 X10*3/uL (0.1-1.2); Monocytes Percent Auto 9.8 % (2-11); Neutrophils Absolute Auto 4.6 x10*3/uL (2.0-8.3); Neutrophils Percent Auto 72.4 % (45-73); Platelet Count 189 X10*3/uL (160-400); Red Blood Count 4.19 X10*6/uL (4.20-5.50); Red Cell Distribution Width 12.5 % (11.0-16.0); White Blood Count 6.4 X10*3/uL (4.8-10.8)
[2023-04-12 14:56] LABS: Appearance Urine Clear; Color Urine Dark Yellow; Glucose Urine UA Negative (Negative); Leukocyte Esterase Urine Trace (Negative); Nitrite Urine Negative (Negative); UMIC TRIGGER UACC YES; Urine Blood Negative (Negative); Urine Ketones Negative (Negative); Urine Protein Negative (Neg-Trace)
[2023-04-12 14:59] LABS: Bacteria Urine None Seen (None Seen); Hyaline Casts Urine 0-2 /LPF (0-2); RBC Urine 0-2 /HPF (0-2); Squamous Epithelial Cell Urine 0-2 /HPF (0-2); WBC Urine 0-5 /HPF (0-5)
[2023-04-12 15:05] LABS: Alanine Aminotransferase 20 U/L (0-31); Albumin Level 3.7 g/dL (3.5-5.0); Alkaline Phosphatase 105 U/L (39-117); Anion Gap 7 (12-20); Aspartate Amino Transferase 24 U/L (5-31); Bilirubin Direct 0.2 mg/dL (0.0-0.5); Bilirubin Total 0.3 mg/dL (0.0-1.0); Blood Urea Nitrogen 12 mg/dL (9-16); Calcium 8.8 mg/dL (8.4-10.2); Carbon Dioxide 31 mmol/L (22-29); Chloride 101 mmol/L (96-108); Creatinine Clr Calc Pharmacy 67.5; Estimated Glomerular Filt Rate > 60; Glucose Random 91 mg/dL (60-115); Lipase 9 U/L (8-78); Potassium 4.1 mmol/L (3.3-5.1); Sodium 135 mmol/L (135-145); Total Protein 6.8 g/dL (6.5-8.0)
[2023-04-12 15:14] LABS: Troponin-I High Sensitivity < 2.7 ng/L (<3.5-17.0)
[2023-04-12 17:45] VITALS: BP 149/79; PULSE 82; RESP 18; TEMP 36.8; O2SAT 97
[2023-04-12 20:29] VITALS: BP 131/65; PULSE 76; RESP 16; TEMP 36.6; O2SAT 95
== END 2023-04-12 22:01 | disposition left against medical advice (07) ==
PROVIDERS: Physician Assistant Medical; Emergency Provider Emergency Medicine; PCP Internal Medicine
DX: R53.1 Weakness (principal); R51.9 Headache, unspecified; M54.2 Cervicalgia; M25.511 Pain in right shoulder; R26.81 Unsteadiness on feet
CPT/HCPCS: 36415; 70450; 72125; 73030; 80048; 80076; 81001; 83690; 84484; 85025; 93005; 99283; 99284

== ENCOUNTER → 2023-04-12 14:12 | Outpatient (BNV) | payer MEDICARE, MEDICAID, SELFPAY | PROVIDERS: Emergency Provider Emergency Medicine; PCP Internal Medicine; Visit Provider Internal Medicine Cardiovascular Disease | DX: R53.1 Weakness (principal) | CPT/HCPCS: 93010 ==

== ENCOUNTER 2023-04-18 15:11 | Outpatient (AMB) | payer MEDICARE, MEDICAID, SELFPAY ==
[2023-04-18 15:13] VITALS: BP 126/80; PULSE 70; O2SAT 97; BMI 26.2
--- NOTE | 2023-04-18 15:13 | A.OFFPC_ITS ---
Vital Signs 04/18/23 15:13 Height 5 ft 2 in Weight 143 lb BMI 26.2 BP 126/80 Blood Pressure Location Lt brachial Position Sitting Pulse 70 Pulse Source Pulse Oximeter Pulse Oximetry (%) 97 Oxygen Delivery Method Room Air Intake Visit Reasons: ED followup 04/12 Allergies phenytoin [Dilantin] Allergy (Intermediate, Verified 04/18/23 15:13) gums affected-loosened and lost teeth divalproex sodium [From DEPAKOTE] Allergy (Unknown, Verified 04/18/23 15:13) Unknown-daughter does not remember reaction Medication List - Last Reconciled 04/18/23 by Nila Eldridge MD acetaminophen ER (Tylenol Arthritis Pain) 650 mg PO BID albuterol sulfate 90 mcg/actuation 1 inh inhalation QID PRN 30 days aspirin 81 mg PO DAILY carbamazepine 3 tabs PO BID cholecalciferol (vitamin D3) 25 mcg PO DAILY bzxgcxufvxv-drmpytppb-utgwnlqw 100-62.5-25 mcg 1 ea inhalation DAILY 90 days nystatin 1 appl topical DAILY 30 days phenobarbital 97.2 mg PO BEDTIME sertraline 50 mg PO DAILY venlafaxine ER 150 mg PO DAILY 90 days vibegron (Gemtesa) 75 mg PO DAILY 30 days Tobacco use date assessed: 04/18/23 Fall risk assessment: 2 + Falls in past year (5 in the last month) Last assessed Fall Risk: 04/18/23 Dental Screening Dental Screen Date: 04/18/23 Did you have a dental visit in the last 12 months?: No Did you have a dental problem in the last 6 months where you did not have access to dental care?: No Was dental information given to patient?: No HPI ED followup 04/12 HPI Details Patient is 82-year-old female came in today after visiting emergency room th of this month. Patient presented with a chief complaint of fall striking her head and right shoulder pain after the fall Daughter verbalize that patient is unsteady on her feet compared to her normal gait EKG and imaging was ordered CT scan had showed 1. No acute intracranial process seen. 2. Age-related cerebral volume loss wit h chronic small vessel ischemic changes in both cerebral hemispheres. There is a lacunar infarction right caudate nucleus. 3. There is no acute fracture, dislocat ion or subluxation seen in cervical spine. There is grade 1 anterolisthesis C3 over C4 and C7 over T1. 4. There are degenerative disc changes C4-C5, C5-C6 and C6-C7 disc levels with ventral and posterior spondylosis. No lytic or sclerotic process seen. Shoulder x-ray showed 1. No acute abnormality. 2. Severe arthrosis of the right should er unchanged. CT scan done February of last year did not show lacunar infarct, patient has seen Dr. Bernardo neurology in November of last year I have told daughter to make a follow-up appointment as soon as possible, they have appointment in May already. For pain in her shoulder and neck I would recommend to take 1 a leave with breakfast and continued Tylenol for the night Currently patient is given 1000 mg of Tylenol in the morning as well I think that is too much Tylenol day may stop Tylenol for the morning Going over her labs I see that her urine was slightly positive for leuk esterase in emergency room However it was not treated, I have sent Macrobid for 3 days 100 mg b.i.d. Daughter tells me that patient has gone back to her baseline and is attending day program now. I am stopping venlafaxine as patient is already on citrulline through neurology [facility] Medical History Frontotemporal dementia Chronic hyponatremia Right shoulder pain Anxiety, generalized COPD, moderate Hematuria Osteoarthritis of right shoulder Epilepsy Surgical History S/P placement of nerve stimulator S/P placement of nerve stimulator History of cataract surgery History of appendectomy History of cholecystectomy Family History Maternal Grandmother Stomach cancer Sister Breast cancer Social History Household Members: Family Housing: House Are you a primary personal care aide to a significant other at home: No Do you presently have visiting nurse or other home services: Yes ([facility]) Alcohol intake: never Patient Tobacco Use Status: Former Tobacco user Quit Date: ~2007 Tobacco use type: Cigarette e-Cigarette/Vaping Use: Never Used Advance Directives Date on File: 02/22/15 service: No Current occupational status: disabled Current occupation: right handed Cognitive needs: No Hearing needs: Yes Vision needs: Yes Questionnaire Thrive Questionnaire Date Thrive assessed: 04/29/22 KACIE-7 AMB Questionnaire KACIE-7 Date KACIE - 7 assessed: 04/29/22 Source: Developed by Drs. Isidoro Gonzalez, Jennifer Forrester, Ian Nix and colleagues, with an educational alex from [employer]. Review of Systems Const Denies chills and Denies fever(s) ENT Denies epistaxis and Denies nasal discharge Card Denies chest pain Resp Denies chest congestion, Denies cough and Denies hemoptysis GI Denies diarrhea and Denies nausea Skin/Breast Denies rash Neuro Reports no additional complaints Psych Reports no additional complaints Endo Reports no additional complaints Physical exam (Primary Care) Vital Signs: Last Vital Signs BP 126/80 04/18/23 15:13 BMI result Body Mass Index 26.2 Tobacco/Smoking Status: Tobacco use Status Tobacco use date assessed 04/18/23 04/18/23 15:21 Patient Tobacco Use Status Former Tobacco user 04/18/23 15:21 Tobacco use type Cigarette 04/18/23 15:21 e-Cigarette/Vaping Use Never Used 04/18/23 15:21 Thrive Assessment: Date of Thrive Assessment Date Thrive assessed 04/29/22 04/18/23 15:21 Const General: cooperative, comfortable and no acute distress HENMT Head: Yes normocephalic Eyes General: appearance normal, both eyes and all related structures Neck Neck: Yes supple Resp Effort & Inspection: normal respiratory effort, no cough and no stridor Cardio Rhythm: regular rhythm Heart sounds: S1 normal heart sound present and S2 normal heart sound present Skin General skin exam: turgor normal Neuro General: tone normal and moves all extremities Extrem Right lower extremity: no edema Left lower extremity: no edema Assessment and Plan Assessment & Plan (1) Lacunar infarction: Code(s): I63.81 - Other cerebral infarction due to occlusion or stenosis of small artery (2) Tired: Code(s): R53.83 - Other fatigue (3) Fall: Code(s): W19.XXXA - Unspecified fall, initial encounter Qualifiers: Encounter type: initial encounter Qualified Code(s): W19.XXXA - Unspecified fall, initial encounter (4) Seizure disorder: Code(s): G40.909 - Epilepsy, unspecified, not intractable, without status epilepticus (5) Imbalance: Code(s): R26.89 - Other abnormalities of gait and mobility (6) Anxiety, generalized: Code(s): F41.1 - Generalized anxiety disorder (7) Right shoulder pain: Code(s): M25.511 - Pain in right shoulder Qualifiers: Chronicity: acute Qualified Code(s): M25.511 - Pain in right shoulder (8) Abnormal urinalysis: Code(s): R82.90 - Unspecified abnormal findings in urine Plan Patient is 82-year-old female came in today after visiting emergency room 14th of this month. Patient presented with a chief complaint of fall striking her head and right shoulder pain after the fall Daughter verbalize that patient is unsteady on her feet compared to her normal gait EKG and imaging was ordered CT scan had showed 1. No acute intracranial process seen. 2. Age-related cerebral volume loss with chronic small vessel ischemic changes in both cerebral hemispheres. There is a lacunar infarction right caudate nucleus. 3. There is no acute fracture, dislocation or subluxation seen in cervical spine. There is grade 1 anterolisthesis C3 over C4 and C7 over T1. 4. There are degenerative disc changes C4-C5, C5-C6 and C6-C7 disc levels with ventral and posterior spondylosis. No lytic or sclerotic process seen. Shoulder x-ray showed 1. No acute abnormality. 2. Severe arthrosis of the right shoulder unchanged. CT scan done February of last year did not show lacunar infarct, patient has seen Dr. Bernardo neurology in November of last year I have told daughter to make a follow-up appointment as soon as possible, they have appointment in May already. For pain in her shoulder and neck I would recommend to take 1 a leave with breakfast and continued Tylenol for the night Currently patient is given 1000 mg of Tylenol in the morning as well I think that is too much Tylenol day may stop Tylenol for the morning Going over her labs I see that her urine was slightly positive for leuk esterase in emergency room However it was not treated, I have sent Macrobid for 3 days 100 mg b.i.d. Daughter tells me that patient has gone back to her baseline and is attending day program now. I am stopping venlafaxine as patient is already on citrulline through neurology Due to patient's excessive sleepiness and feeling tired I have added thyroid test All labs printed and handed to patient as per her request Orders: Orders TSH reflex Free T4 Today R53.83 - Other fatigue Medications: New nitrofurantoin monohyd/m-cryst 100 mg (Macrobid) must administer with a meal/food 100 mg PO Q12H 3 days 6 caps 0RF Discontinued venlafaxine ER Discontinued Reason: Doctor's Order 150 mg PO DAILY 90 days 90 caps 0RF Coding Level of Care Code Est Pt Level 5 (52082) Diagnoses Lacunar infarction I63.81 Tired R53.83 Fall, initial encounter W19.XXXA Encounter type: initial encounter Seizure disorder G40.909 Imbalance R26.89 Anxiety, generalized F41.1 Acute pain of right shoulder M25.511 Chronicity: acute Abnormal urinalysis R82.90 Time Spent (min) 45 Comment 10 minute pre visit, 25 minute with patient, 10 minute charting coordination of care
== END 2023-04-18 16:22 | disposition home or self-care (01) ==
PROVIDERS: PCP Internal Medicine; Visit Provider Internal Medicine
DX: I63.81 Other cerebral infarction due to occlusion or stenosis of small artery (principal); G40.909 Epilepsy, unspecified, not intractable, without status epilepticus; R53.83 Other fatigue; W19.XXXA Unspecified fall, initial encounter; R26.89 Other abnormalities of gait and mobility; F41.1 Generalized anxiety disorder; M25.511 Pain in right shoulder; R82.90 Unspecified abnormal findings in urine
CPT/HCPCS: 99215

== ENCOUNTER 2023-05-20 07:51 | Outpatient (REF) | payer MEDICARE, MEDICAID, SELFPAY ==
[2023-05-20 11:51] LABS: TSH reflex Free T4 2.04 uIU/mL (0.32-4.0)
== END 2023-05-20 07:52 | disposition home or self-care (01) ==
LOC: HO.HMGCLDS 07:51
PROVIDERS: PCP Internal Medicine; Visit Provider Internal Medicine
DX: R53.83 Other fatigue (principal)
CPT/HCPCS: 36415; 84443

== ENCOUNTER 2023-05-25 14:53 | Outpatient (AMB) | payer MEDICARE, MEDICAID, SELFPAY ==
--- NOTE | 2023-05-25 15:01 | A.OFFVIS_ITS ---
Intake Vital Signs 05/25/23 15:33 Height 5 ft 2 in Weight 144 lb 2 oz BMI 26.4 BP 140/76 H Blood Pressure Location Lt brachial Position Sitting Respiration 12 Pulse 76 Pulse Source Pulse Oximeter Pulse Oximetry (%) 100 Oxygen Delivery Method Room Air Intake Visit Reasons: Chronic R Shoulder Pain Intake Note: Patient comes in for right shoulder pain. Reports pain 09/05. Allergies phenytoin [Dilantin] Allergy (Intermediate, Verified 05/25/23 15:34) gums affected-loosened and lost teeth divalproex sodium [From DEPAKOTE] Allergy (Unknown, Verified 05/25/23 15:34) Unknown-daughter does not remember reaction HPI HPI Comments History of Present Illness Details Leela is very pleasant 82 years old lady who is in my office today in presence of her daughter to discuss possibility of further treatment of the pain in her right shoulder. She was under care of Dr. Rothman and she was treated with suprascapular nerve block following sprint PNS suprascapular ablation on the right. The patient reported very profound and long pain relief lasting up to 1 year after the 60 days trial of stimulation. However the patient is suffering from frontal dementia, she has no praxis and therefore she is unable to take care of herself, her daughter feels that this is significant burden for her to change her dressings and help the patient with activities of daily living. They are today to discuss their options for treatment. Prolonged and detailed conversation was held. I explained possibility of treating her pain in the right shoulder with Curonix PNS which would be somewhat more permanent procedure, I explained need for psychological evaluation. During the conversation I asked patient several questions and it appears to be that she is oriented in person, oriented somewhat in time, oriented in place as well. I do not think she will not be able to pass psychological evaluation but this is up to the psychologist to decide. The procedure will be done under deep sedation. Primary care physician opinion on whether this patient can not withstand sedation would be required. Anesthesiology opinion on possible side effects from the sedation including delirium and progression of the dementia would be also required. we also discussed possibility of treating her condition with therapeutic nerve blocks. I honestly told her and her daughter that it is unlikely that therapeutic nerve blocks will work longer than couple of weeks. Besides the risk of the steroid injections for 82 years old with existing osteoporosis and possibility of iatrogenic diabetes was also explained to the patient's and her daughter. The daughter of the patient had lots of questions to ask and all this questions were answered to her satisfaction. Eventually I offered her to consider regenerative medicine in the form of platelet rich plasma injection. Patient and her daughter wants to research this treatment on Internet. Insurance companies avoiding coverage of this procedure and this was explained to the patient. It is uncertain whether this procedure will be working for the patient because of her age and osteoporosis. However unlike any other procedures offered to the patient in the past platelet rich plasma injection would not require any sedation for the patient. [facility] Medical History Frontotemporal dementia Chronic hyponatremia Right shoulder pain Anxiety, generalized COPD, moderate Hematuria Osteoarthritis of right shoulder Epilepsy Surgical History S/P placement of nerve stimulator S/P placement of nerve stimulator History of cataract surgery History of appendectomy History of cholecystectomy Family History Maternal Grandmother Stomach cancer Sister Breast cancer Social History Household Members: Family Housing: House Are you a primary critical care unit manager to a significant other at home: No Do you presently have visiting nurse or other home services: Yes ([facility]) Alcohol intake: never Patient Tobacco Use Status: Former Tobacco user Quit Date: ~2007 Tobacco use type: Cigarette e-Cigarette/Vaping Use: Never Used Advance Directives Date on File: 02/22/15 service: No Current occupational status: disabled Current occupation: right handed Cognitive needs: No Hearing needs: Yes Vision needs: Yes Review of Systems Const All systems reviewed & are unremarkable except as noted in HPI and below Physical Exam Const General: cooperative and no acute distress Orientation/consciousness: patient oriented x3 Resp Effort & Inspection: normal respiratory effort, able to speak in complete sentences and no audible wheezes Neuro General: patient oriented x3 Extrem Other: Limited range of motion of the right upper extremity. Crepitus is sense with shoulder mobility. Psych Mental Status: mental status grossly normal Speech and movement: Clear speech present Attitude: cooperative Thought process: Normal thought process present Thought content: Normal thought content present Insight: Good insight present (Psych) Judgement: Good judgement present (Psych) Assessment & Plan Assessment & Plan (1) Right shoulder pain: Code(s): M25.511 - Pain in right shoulder Qualifiers: Chronicity: acute Qualified Code(s): M25.511 - Pain in right shoulder (2) Arthritis of right shoulder region: Code(s): M19.011 - Primary osteoarthritis, right shoulder Plan Treatment of this patient's condition might require careful consideration. Her ability to go for general anesthesia and even for sedation is questionable. After prolonged difficult conversation during which her daughter was not very happy about the options I listed for her see as above it looks like that platelet rich plasma injection is something which she would be interested to be done for her mother. After restored of the procedure on the Internet she will give us a call and we w ill schedule the procedure Patient Instructions: I here by testify that I spent 43 minutes in conversation with this patient and her daughter. I also spent some time organizing this note. Coding Level of Care Code Est Pt Level 5 (14966) Diagnoses Acute pain of right shoulder M25.511 Chronicity: acute Arthritis of right shoulder region M19.011
[2023-05-25 15:33] VITALS: BP 140/76; PULSE 76; RESP 12; O2SAT 100; BMI 26.4
== END 2023-05-25 16:02 | disposition home or self-care (01) ==
PROVIDERS: PCP Internal Medicine; Visit Provider Anesthesiology
DX: M25.511 Pain in right shoulder (principal); M19.011 Primary osteoarthritis, right shoulder
CPT/HCPCS: 99215

== ENCOUNTER → 2023-05-25 14:53 | Outpatient (BNVA) | payer MEDICARE, MEDICAID, SELFPAY | PROVIDERS: PCP Internal Medicine; Visit Provider Anesthesiology | DX: M25.511 Pain in right shoulder (principal); M19.011 Primary osteoarthritis, right shoulder | CPT/HCPCS: 99212 ==

== ENCOUNTER 2023-05-31 15:48 | Outpatient (AMB) | payer MEDICARE, MEDICAID, SELFPAY ==
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
[2023-05-31 16:12] VITALS: BP 128/74; PULSE 76; TEMP 36.7; O2SAT 97; BMI 26.3
== END 2023-05-31 16:50 | disposition home or self-care (01) ==
PROVIDERS: PCP Internal Medicine; Visit Provider Internal Medicine
DX: S41.109A Unspecified open wound of unspecified upper arm, initial encounter (principal)
CPT/HCPCS: 99213

== ENCOUNTER 2023-07-14 14:39 | Outpatient (AMB) | payer MEDICARE, MEDICAID, SELFPAY ==
--- NOTE | 2023-07-14 14:43 | A.OFFVIS_ITS ---
Vital Signs 07/14/23 14:47 Height 5 ft 2 in Weight 144 lb BMI 26.3 BP 142/82 H Blood Pressure Location Lt brachial Position Sitting Pulse 67 Pulse Source Doppler Pulse Oximetry (%) 98 Oxygen Delivery Method Room Air Intake Visit Reasons: COPD Allergies phenytoin [Dilantin] Allergy (Intermediate, Verified 07/14/23 14:44) gums affected-loosened and lost teeth divalproex sodium [From DEPAKOTE] Allergy (Unknown, Verified 07/14/23 14:44) Unknown-daughter does not remember reaction HPI HPI COPD: Details: 82-year-old lady, former 40-50 pack-year smoker, quit 2005 with underlying dementia being planned for pain will alleviating procedure for the right shoulder either under general anesthesia or monitored anesthesia care referred for pulmonary evaluation and perioperative risk assessment. Patient appears to have at least moderate COPD now reasonably well controlled on Trelegy and albuterol MDI. Patient's daughter denies any recent exacerbation of her underlying COPD. REPLACED BY [facility] Medical History Frontotemporal dementia Chronic hyponatremia Right shoulder pain Anxiety, generalized COPD, moderate Hematuria Osteoarthritis of right shoulder Epilepsy Surgical History S/P placement of nerve stimulator S/P placement of nerve stimulator History of cataract surgery History of appendectomy History of cholecystectomy Family History Maternal Grandmother Stomach cancer Sister Breast cancer Social History Household Members: Family Housing: House Are you a primary dog daycare provider to a significant other at home: No Do you presently have visiting nurse or other home services: Yes ([facility]) Alcohol intake: never Patient Tobacco Use Status: Former Tobacco user Quit Date: ~2007 Tobacco use type: Cigarette e-Cigarette/Vaping Use: Never Used Advance Directives Date on File: 02/22/15 service: No Current occupational status: disabled Current occupation: right handed Cognitive needs: No Hearing needs: Yes Vision needs: Yes Review of Systems Const Denies daytime sleepiness, Denies excessive sweating, Denies fatigue, Denies fever(s), Denies lethargy, Denies malaise, Denies night sweats, Denies snoring and Denies weight loss Eyes Denies blurry vision and Denies itchy eyes ENT Denies nasal congestion, Denies post nasal drip, Denies sinus pain, Denies sinus pressure and Denies other ( Thrush) Card Denies chest pain, Denies pedal edema, Denies dyspnea, Denies orthopnea and Denies paroxysmal nocturnal dyspnea Resp Denies cough, Denies hemoptysis, Denies excessive phlegm production, Denies dyspnea, Denies snoring and Denies wheezing GI Denies abdominal pain and Denies heartburn Musc Reports arthralgias and Reports joint swelling Skin/Breast Denies rash Neuro Denies memory loss and Denies seizure-like activity Psych Denies abnormal sleep pattern, Denies anxiety and Denies memory loss Endo Denies excessive sweating, Denies fatigue and Denies heat intolerance Loco/Lymph Denies easy bruising Aller/Immun Denies itchy eyes, Denies seasonal rhinorrhea and Denies wheezing Physical Exam Vital Signs: Last Vital Signs Pulse 67 07/14/23 14:47 BP 142/82 H 07/14/23 14:47 Pulse Ox 98 07/14/23 14:47 Oxygen Delivery Method Room Air 07/14/23 14:47 BMI result Body Mass Index 26.3 Const General: no acute distress and alert Nutritional Appearance: not obese Orientation/consciousness: Other orientation findings ( oriented) HEENT Head: Yes atraumatic Eyes General: appearance normal, both eyes and all related structures Sclerae: sclerae normal EOM: EOMs intact bilaterally Neck Neck: Yes supple Lymphatic: no lymphadenopathy noted Resp Effort & Inspection: normal respiratory effort and no use of accessory muscles Auscultation: clear to auscultation bilaterally Cardio Rate: regular rate Rhythm: regular rhythm Heart sounds: no gallops, no murmurs and no rubs Skin General skin exam: other ( warm) Extrem General: No clubbing, No cyanosis and No edema Assessment & Plan Assessment & Plan (1) COPD (chronic obstructive pulmonary disease): Code(s): J44.9 - Chronic obstructive pulmonary disease, unspecified Category: Medical Plan: Results of spirometry reviewed, moderate COPD now well controlled on Trelegy and albuterol MDI. Continue current regimen (2) Preop pulmonary/respiratory exam: Code(s): Z01.811 - Encounter for preprocedural respiratory examination Category: Medical Plan: Considering only underlying moderate COPD that is well controlled patient is at this time at low risk for pulmonary preoperative complications for either general anesthesia or monitored anesthesia care for any orthopedic or pain management procedure under 2 hours in duration. Coding Level of Care Code New Pt Level 4 (82500) Diagnoses COPD (chronic obstructive pulmonary disease) J44.9 Preop pulmonary/respiratory exam Z01.811
[2023-07-14 14:47] VITALS: BP 142/82; PULSE 67; O2SAT 98; BMI 26.3
== END 2023-07-14 15:20 | disposition home or self-care (01) ==
PROVIDERS: PCP Internal Medicine; Referring Provider Internal Medicine; Visit Provider Internal Medicine Pulmonary Disease
DX: J44.9 Chronic obstructive pulmonary disease, unspecified (principal); Z01.811 Encounter for preprocedural respiratory examination
CPT/HCPCS: 94010; 99204

== ENCOUNTER → 2023-07-14 14:39 | Outpatient (BNVA) | payer MEDICARE, MEDICAID, SELFPAY | PROVIDERS: PCP Internal Medicine; Referring Provider Internal Medicine; Visit Provider Internal Medicine Pulmonary Disease | DX: Z01.811 Encounter for preprocedural respiratory examination (principal); J44.9 Chronic obstructive pulmonary disease, unspecified | CPT/HCPCS: 94010; 99202 ==

== ENCOUNTER 2023-07-19 14:08 | Outpatient (AMB) | payer MEDICARE, MEDICAID, SELFPAY ==
--- NOTE | 2023-07-19 14:08 | A.OFFPC_ITS ---
Intake Visit Reasons: Followup thyroid Allergies phenytoin [Dilantin] Allergy (Intermediate, Verified 07/19/23 14:09) gums affected-loosened and lost teeth divalproex sodium [From DEPAKOTE] Allergy (Unknown, Verified 07/19/23 14:09) Unknown-daughter does not remember reaction Medication List - Last Reconciled 07/19/23 by Nila Eldridge MD acetaminophen ER (Tylenol Arthritis Pain) 650 mg PO BID albuterol sulfate 90 mcg/actuation 1 inh inhalation QID PRN 30 days aspirin 81 mg PO DAILY carbamazepine 3 tabs PO BID cholecalciferol (vitamin D3) 25 mcg PO DAILY lpjvebhutqe-mpaymzdry-qjlntaql 100-62.5-25 mcg 1 ea inhalation DAILY 90 days nystatin 1 appl topical DAILY 30 days phenobarbital 97.2 mg PO BEDTIME sertraline 50 mg PO DAILY vibegron (Gemtesa) 75 mg PO DAILY 30 days Tobacco use date assessed: 07/19/23 Fall risk assessment: 2 + Falls in past year Last assessed Fall Risk: 07/19/23 Dental Screening Dental Screen Date: 07/19/23 Did you have a dental visit in the last 12 months?: No Did you have a dental problem in the last 6 months where you did not have access to dental care?: No Was dental information given to patient?: No HPI Followup thyroid HPI Details Patient is 82 female this is a telemedicine video conference follow-up Patient have history of COPD arthritis multiple joint, lipid disorder, recurrent fall, frontal lobe dementia, imbalance, seizure disorder managed by neurologist , overactive bladder, anxiety generalized She is in her usual state of health Labs were done March of this year reviewed She has a history of chronic hyponatremia however her sodium level was normal this time Breathing is stable patient is on maintenance inhaler She is taking sertraline 50 mg for anxiety Patient sees urologist for overactive bladder treatment [facility] Medical History Frontotemporal dementia Chronic hyponatremia Right shoulder pain Anxiety, generalized COPD, moderate Hematuria Osteoarthritis of right shoulder Epilepsy Surgical History S/P placement of nerve stimulator S/P placement of nerve stimulator History of cataract surgery History of appendectomy History of cholecystectomy Family History Maternal Grandmother Stomach cancer Sister Breast cancer Social History Household Members: Family Housing: House Are you a primary wound care coordinator to a significant other at home: No Do you presently have visiting nurse or other home services: Yes ([facility]) Alcohol intake: never Patient Tobacco Use Status: Former Tobacco user Quit Date: ~2007 Tobacco use type: Cigarette e-Cigarette/Vaping Use: Never Used Advance Directives Date on File: 02/22/15 service: No Current occupational status: disabled Current occupation: right handed Cognitive needs: No Hearing needs: Yes Vision needs: Yes Questionnaire Thrive Questionnaire Date Thrive assessed: 04/29/22 AUDIT C Alcohol Use Questionnaire (AUDIT-C) 1. How often do you have a drink containing alcohol?: Never 3. How often do you have six or more drinks on one occasion?: Never Total Score: 0 Score Reviewed/Action Taken: Yes KACIE-7 AMB Questionnaire KACIE-7 Date KACIE - 7 assessed: 04/29/22 Source: Developed by Drs. Isidoro Gonzalez, Jennifer Forrester, Ian Nix and colleagues, with an educational alex from [employer]. Review of Systems Const Denies chills and Denies fever(s) ENT Denies epistaxis and Denies nasal discharge Card Denies chest pain Resp Denies chest congestion, Denies cough and Denies hemoptysis GI Denies diarrhea and Denies nausea Skin/Breast Denies rash Neuro Reports no additional complaints Psych Reports no additional complaints Endo Reports no additional complaints Physical exam (Primary Care) Tobacco/Smoking Status: Tobacco use Status Tobacco use date assessed 07/19/23 07/19/23 14:10 Patient Tobacco Use Status Former Tobacco user 07/19/23 14:10 Tobacco use type Cigarette 07/19/23 14:10 e-Cigarette/Vaping Use Never Used 07/19/23 14:10 Thrive Assessment: Date of Thrive Assessment Date Thrive assessed 04/29/22 07/19/23 14:10 Telehealth Telehealth Telehealth Platform: [facility] Location of provider rendering services: practice address Location of patient: address on file Patient Identification confirmed using: Name, : Yes Telehealth method: video (Attempted) Patient verbally consented to treatment: Yes Patient verbally consented to billing insurance company: Yes Patient informed of any privacy concerns related to visit: Yes Minutes spent on Phone/Video with Pt.: 20 Assessment and Plan Assessment & Plan (1) Arthritis of right shoulder region: Code(s): M19.011 - Primary osteoarthritis, right shoulder (2) Lipid disorder: Comment: Make healthy food choices . Eat lots of fruits, vegetables, whole grains, and low-fat dairy products. Limit the amount of meat and fried or fatty foods that you eat. Be active Walk, garden, or do something active for 30 minutes or more on most days of the week. If you smoke, stop smoking. Smoking increases the chance of heart attack or stroke, or develop cancer.If you are over weight, Lose weight, Being overweight increases the risk of many health problems. Avoid alcohol Alcohol can increase blood sugar and blood pressure. Code(s): E78.9 - Disorder of lipoprotein metabolism, unspecified (3) Osteoarthritis involving multiple joints on both sides of body: Code(s): M15.9 - Polyosteoarthritis, unspecified (4) Frontal lobe dementia: Code(s): G31.09 - Other frontotemporal neurocognitive disorder; F02.80 - Dementia in other diseases classified elsewhere, unspecified severity, without behavioral disturbance, psychotic disturbance, mood disturbance, and anxiety (5) Seizure disorder: Code(s): G40.909 - Epilepsy, unspecified, not intractable, without status epilepticus (6) Overactive bladder: Code(s): N32.81 - Overactive bladder (7) COPD, moderate: Code(s): J44.9 - Chronic obstructive pulmonary disease, unspecified (8) Anxiety, generalized: Code(s): F41.1 - Generalized anxiety disorder Plan Patient is 82 female this is a telemedicine video conference follow-up Patient have history of COPD arthritis multiple joint, lipid disorder, recurrent fall, frontal lobe dementia, imbalance, seizure disorder managed by neurologist , overactive bladder, anxiety generalized She is in her usual state of health Labs were done March of this year reviewed She has a history of chronic hyponatremia however her sodium level was normal this time Breathing is stable patient is on maintenance inhaler She is taking sertraline 50 mg for anxiety Patient sees urologist for overactive bladder treatment Medications: New sertraline 50 mg PO DAILY 90 tabs 0RF Coding Level of Care Code Tele Est Pt Level 3 (59402) Diagnoses Arthritis of right shoulder region M19.011 Lipid disorder E78.9 Osteoarthritis involving multiple joints on both sides of body M15.9 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; F02.80 Seizure disorder G40.909 Overactive bladder N32.81 COPD, moderate J44.9 Anxiety, generalized F41.1
== END 2023-07-19 16:43 | disposition home or self-care (01) ==
LOC: HO.HMGC 14:08
PROVIDERS: PCP Internal Medicine; Visit Provider Internal Medicine
DX: M19.011 Primary osteoarthritis, right shoulder (principal); G31.09 Other frontotemporal neurocognitive disorder; F02.80 Dementia in other diseases classified elsewhere, unspecified severity, without behavioral disturbance, psychotic disturbance, mood disturbance, and anxiety; G40.909 Epilepsy, unspecified, not intractable, without status epilepticus; J44.9 Chronic obstructive pulmonary disease, unspecified; E78.9 Disorder of lipoprotein metabolism, unspecified; N32.81 Overactive bladder; F41.1 Generalized anxiety disorder
CPT/HCPCS: 99442

== ENCOUNTER 2023-07-20 14:22 | Outpatient (AMB) | payer MEDICARE, MEDICAID, SELFPAY ==
--- NOTE | 2023-07-20 14:25 | A.OFFVIS_ITS ---
Intake Visit Reasons: follow up/PVR Intake Note: Patient is Present for PVR/ Urology Med: Gemtesa Antibiotic Allergy: None Blood Thinner: Aspirin Todays PVR: 0 Allergies phenytoin [Dilantin] Allergy (Intermediate, Verified 07/20/23 15:00) gums affected-loosened and lost teeth divalproex sodium [From DEPAKOTE] Allergy (Unknown, Verified 07/20/23 15:00) Unknown-daughter does not remember reaction Medication List - Last Reconciled 07/20/23 by COLETTE Daly acetaminophen ER (Tylenol Arthritis Pain) 650 mg PO BID albuterol sulfate 90 mcg/actuation 1 inh inhalation QID PRN 30 days aspirin 81 mg PO DAILY carbamazepine 3 tabs PO BID cholecalciferol (vitamin D3) 25 mcg PO DAILY escitalopram oxalate 20 mg PO DAILY cmvnfuvrhem-raevctwgy-njlqxhgz 100-62.5-25 mcg 1 ea inhalation DAILY 90 days nystatin 1 appl topical DAILY 30 days phenobarbital 97.2 mg PO BEDTIME vibegron (Gemtesa) 75 mg PO DAILY 30 days HPI Comments Details: Molly is a pleasant 82-year-old female patient of Dr. Eldridge who was accompanied by her daughter at today's office visit. She has a past medical history of frontal lobe dementia, chronic hyponatremia, anxiety, COPD, osteoarthritis of the right shoulder, and epilepsy. She presents to the office today for follow-up of her urinary urgency frequency, overactive bladder, and microscopic hematuria. Of note, patient was previously seen with Dr. Ochoa via telehealth approximately 2 months ago at which time she was started on Gemtesa for her lower urinary tract symptoms. Patient and daughter both report medication to be working well. She reports feeling episodes of nocturia have somewhat decreased. She reports throughout the day she is at a day program and patient undergoes timed/scheduled voiding and feels this is helpful. In office urinalysis results reviewed with the patient and her daughter today. No microscopic hematuria noted. PVR 0 mL. She otherwise denies hematuria, dysuria, foul smelling urine, changes to urinary stream, flank pain, fever, and or chills. She is happy with her current voiding parameters on Gemtesa. She discusses following up with pain management for ongoing arthritic pain she experiences Microscopic hematuria UA today negative Imaging - 10/17 renal ultrasound negative Cystoscopy - 10/17 no abnormality detected does have some degree of trabeculation Urinary urgency Multiple prior therapies for overactive bladder Failed multiple and cholinergics including oxybutynin, VESIcare, solifenacin Does respond to tamsulosin Prior use of InterStim which was removed [facility] Medical History Frontotemporal dementia Chronic hyponatremia Right shoulder pain Anxiety, generalized COPD, moderate Hematuria Osteoarthritis of right shoulder Epilepsy Surgical History S/P placement of nerve stimulator S/P placement of nerve stimulator History of cataract surgery History of appendectomy History of cholecystectomy Family History Maternal Grandmother Stomach cancer Sister Breast cancer Social History Household Members: Family Housing: House Are you a primary resident care supervisor to a significant other at home: No Do you presently have visiting nurse or other home services: Yes ([facility]) Alcohol intake: never Patient Tobacco Use Status: Former Tobacco user Quit Date: ~2007 Tobacco use type: Cigarette e-Cigarette/Vaping Use: Never Used Advance Directives Date on File: 02/22/15 service: No Current occupational status: disabled Current occupation: right handed Cognitive needs: No Hearing needs: Yes Vision needs: Yes Review of Systems Const Reports no additional complaints Eyes Reports no additional complaints ENT Reports no additional complaints Card Reports no additional complaints Resp Reports as per HPI GI Reports no additional complaints Reports as per HPI Musc Reports as per HPI Neuro Reports as per HPI Psych Reports as per HPI Endo Reports no additional complaints Loco/Lymph Reports no additional complaints Aller/Immun Reports no additional complaints Physical Exam Const General: cooperative, healthy appearing, comfortable, no acute distress, well developed, alert and awake Orientation/consciousness: oriented to person Limitations: no limitations HEENT Head: Yes normal to inspection, Yes normocephalic and Yes atraumatic Ears: hearing grossly normal bilaterally Eyes General: appearance normal, both eyes and all related structures Neck Neck: Yes normal visual inspection and Yes trachea midline Chest Chest palpation & inspection: normal inspection of the chest Resp Effort & Inspection: normal respiratory effort and able to speak in complete sentences Cardio Rate: regular rate GI Inspection: Yes normal to inspection General: Yes no CVA tenderness Back/Spine/Pelvis Back: no CVA tenderness Skin General skin exam: no rashes or lesions noted Neuro General: oriented to person Extrem General: Yes normal to inspection Psych Appearance: grossly normal and well kempt Mental Status: mental status grossly normal Speech and movement: Normal speech and movement present and Clear speech present Affect: normal affect Attitude: cooperative Thought content: Normal thought content present Insight: Limited insight present (Psych) Judgement: Limited judgement present (Psych) Office Procedures Post Void Residual Post Residual Void Post Void Residual (PVR): 0 33965-[id number] Void Residual by ultrasound Results AMB Urinalysis, Automated UA Leukoctes 0 Lele/uL Last Edit by GERARDO Tejada on 07/20/23 14:40 UA Nitrite Negative Last Edit by Kimmy Ferreira ON LICENSE OF [facility] on 07/20/23 14:40 UA Urobilinogen 0.2 mg/dL Last Edit by GERARDO Tejada on 07/20/23 14:4 0 UA Protein 0 mg/dL Last Edit by Kimmy Ferreira ON LICENSE OF [facility] on 07/20/23 14:40 UA pH 7.0 Last Edit by Kimmy Ferreira ON LICENSE OF [facility] on 07/20/23 14:40 UA Blood 0 Ajay/uL Last Edit by Kimmy Ferreira ON LICENSE OF [facility] on 07/20/23 14:40 UA Specific Nicasio 1.005 Last Edit by Kimmy Ferreira ON LICENSE OF [facility] on 07/20/23 14: 40 UA Ketone Negative Last Edit by Kimmy Ferreira Aviva on 07/20/23 14:40 UA Bilirubin 0 mg/dL Last Edit by Kimmy Ferreira ON LICENSE OF [facility] on 07/20/23 14:40 UA Glucose 0 mg/dL Last Edit by Kimmy Ferreira ON LICENSE OF [facility] on 07/20/23 14:40 Results Reviewed Results Reviewed: Laboratory Last Values Urine pH (Auto) 7.0 07/20/23 14:39 Specific Nicasio (Auto) 1.005 07/20/23 14:39 Urine Protein (Auto) 0 mg/dL 07/20/23 14:39 Glucose (UA)(Auto) 0 mg/dL 07/20/23 14:39 Urine Ketones (Auto) Negative 07/20/23 14:39 Urine Blood (Auto) 0 Ajay/uL 07/20/23 14:39 Urine Nitrite (Auto) Negative 07/20/23 14:39 Urine Bilirubin (Auto) 0 mg/dL 07/20/23 14:39 Urine Urobilinogen (Auto) 0.2 mg/dL 07/20/23 14:39 Leukocyte Esterase (Auto) 0 Lele/uL 07/20/23 14:39 Assessment & Plan Assessment & Plan (1) Cystitis: Code(s): N30.90 - Cystitis, unspecified without hematuria Category: Medical (2) Overactive bladder: Code(s): N32.81 - Overactive bladder Category: Medical Plan In office urinalysis results reviewed with the patient today; as noted above. PVR 0 mL. Patient reports be happy with current voiding parameters on Gemtesa; will continue; refill provided. Patient currently denies any bothersome urinary issues or concerns. Discussed bladder triggers/irritants. Discussed importance of limiting fluids 2-3 hours prior to bed to decrease episodes of nocturia. Follow-up in 3 months with PVR; or sooner with any issues, concerns, and or questions. Orders: Orders AMB Post Void Residual by ultrasound Today N32.81 - Overactive bladder AMB Urinalysis Automated Today Z13.9 - Encounter for screening, unspecified Medications: Changed From vibegron (Gemtesa) 75 mg PO DAILY 30 days 30 tabs 1RF N32.81 - Overactive bladder To vibegron (Gemtesa) 75 mg PO DAILY 90 days 90 tabs 1RF N32.81 - Overactive bladder Patient Instructions: The patient had an opportunity to ask questions regarding the treatment plan. All questions were answered. Physical exam, labs, and imaging were discussed and reviewed in detail. As well as risks, benefits, and discussion of treatment choices. No major barriers to understanding were identified. The patient expressed understanding and agreement with the above treatment plan. The patient was made aware they should contact our office by phone for worsening of their current condition, the appearance of new symptoms, or with any questions or concerns. Compliance is encouraged with any medications and follow up testing that is ordered. It is a privilege to be allowed the opportunity to participate in? your urological care.? Again, if you have any questions or concerns If you have any questions or concerns please do not hesitate to contact me. The office is [phone]. This note is constructed using voice recognition software. While every effort has been made to ensure accuracy direct care professional errors may have been included. Yours sincerely, MARCELINO Daly-HENRY Coding Level of Care Code Est Pt Level 3 (17818) Diagnoses Cystitis N30.90 Overactive bladder N32.81 CPT Codes Post Residual Void - PVR CPT Code: 47303-Erwb Void Residual by ultrasound ([id number])
== END 2023-07-20 14:59 | disposition home or self-care (01) ==
PROVIDERS: PCP Internal Medicine; Visit Provider Nurse Practitioner Family
DX: N30.90 Cystitis, unspecified without hematuria (principal); N32.81 Overactive bladder; Z13.9 Encounter for screening, unspecified
CPT/HCPCS: 99213

== ENCOUNTER → 2023-07-20 14:22 | Outpatient (BNVA) | payer MEDICARE, MEDICAID, SELFPAY | PROVIDERS: PCP Internal Medicine; Visit Provider Nurse Practitioner Family | DX: N30.90 Cystitis, unspecified without hematuria (principal); N32.81 Overactive bladder | CPT/HCPCS: 51798; 81003; 99212 ==

== ENCOUNTER 2023-08-18 15:33 | Outpatient (AMB) | payer MEDICARE, MEDICAID, SELFPAY ==
[2023-08-18 15:35] VITALS: BP 126/72; PULSE 68; O2SAT 94; BMI 26.4
--- NOTE | 2023-08-18 15:35 | MHC.PC.OV ---
Vital Signs 08/18/23 15:35 Height 5 ft 2 in Weight 144 lb 4 oz BMI 26.4 BP 126/72 Blood Pressure Location Lt brachial Position Sitting Pulse 68 Pulse Source Pulse Oximeter Pulse Oximetry (%) 94 Oxygen Delivery Method Room Air Intake Visit Reasons: Annual PE Allergies phenytoin [Dilantin] Allergy (Intermediate, Verified 08/18/23 15:36) gums affected-loosened and lost teeth divalproex sodium [From DEPAKOTE] Allergy (Unknown, Verified 08/18/23 15:36) Unknown-daughter does not remember reaction Medication List - Last Reconciled 08/18/23 by Nila Eldridge MD acetaminophen ER (Tylenol Arthritis Pain) 650 mg PO BID albuterol sulfate 90 mcg/actuation 1 inh inhalation QID PRN 30 days aspirin 81 mg PO DAILY carbamazepine 3 tabs PO BID cholecalciferol (vitamin D3) 25 mcg PO DAILY escitalopram oxalate 20 mg PO DAILY kxszhzvatji-wydonwoae-gygqjnot 100-62.5-25 mcg 1 ea inhalation DAILY 90 days nystatin 1 appl topical DAILY 30 days phenobarbital 97.2 mg PO BEDTIME vibegron (Gemtesa) 75 mg PO DAILY 90 days Tobacco use date assessed: 08/18/23 Last assessed Fall Risk: 08/18/23 Dental Screening Dental Screen Date: 07/19/23 HPI Annual PE HPI Details Patient is 82-year-old female came in today for physical examination with the daughter She suffers from dementia which is getting gradually progressive Daughter is her primary caregiver She recently had a visit with neurologist and her medications were changed She is now on quetiapine 25 mg at night to counteract the agitation and help with sleep She is also on escitalopram 20 mg for anxiety. Patient is at risk for fall and need to wear gait belt Her daughter is helping her dress up in the morning She has severe osteoarthritis in multiple joints especially in small joints of hand and knees I have told daughter to get engt-aoe-hzmrlth lidocaine 4% patches and apply dose to knees for pain Breathing is stable patient is on trilogy inhaler All her medications are through neurology office except the inhaler, vitamin-D, and nystatin powder She also take baby aspirin once a day and Tylenol as needed Daughter would like to continue mammograms, order printed and handed to daughter to be done at [facility] We will have a follow-up in six-month to refill her inhaler [facility] Medical History Frontotemporal dementia Chronic hyponatremia Right shoulder pain Anxiety, generalized COPD, moderate Hematuria Osteoarthritis of right shoulder Epilepsy Surgical History S/P placement of nerve stimulator S/P placement of nerve stimulator History of cataract surgery History of appendectomy History of cholecystectomy Family History Maternal Grandmother Stomach cancer Sister Breast cancer Social History Household Members: Family Housing: House Are you a primary pet care attendant to a significant other at home: No Do you presently have visiting nurse or other home services: Yes ([facility]) Alcohol intake: never Patient Tobacco Use Status: Former Tobacco user Tobacco use type: Cigarette e-Cigarette/Vaping Use: Never Used Advance Directives Date on File: 02/22/15 service: No Current occupational status: disabled Current occupation: right handed Cognitive needs: No Hearing needs: Yes Vision needs: Yes Questionnaire Thrive Questionnaire Date Thrive assessed: 04/29/22 KACIE-7 AMB Questionnaire KACIE-7 Date KACIE - 7 assessed: 04/29/22 Source: Developed by Drs. Isidoro Gonzalez, Jennifer Forrester, Ian Nix and colleagues, with an educational alex from [employer]. Review of Systems Const Denies chills and Denies fever(s) ENT Denies nasal discharge, Denies nasal obstruction, Denies odynophagia and Denies sinus pain Card Denies chest pain at rest and Denies chest pain with activity Resp Denies cough and Denies hemoptysis GI Denies diarrhea, Denies odynophagia, Denies vomiting and Denies hematemesis Reports as per HPI Skin/Breast Reports as per HPI Neuro Denies Neuro-related abnormal movements Endo Reports as per HPI Loco/Lymph Reports as per HPI Aller/Immun Reports as per HPI Physical exam (Primary Care) Vital Signs: Last Vital Signs Pulse 68 08/18/23 15:35 BP 126/72 08/18/23 15:35 Pulse Ox 98 08/18/23 15:35 Oxygen Delivery Method Room Air 08/18/23 15:35 BMI result Body Mass Index 26.4 Tobacco/Smoking Status: Tobacco use Status Tobacco use date assessed 08/18/23 08/18/23 15:40 Patient Tobacco Use Status Former Tobacco user 08/18/23 15:40 Tobacco use type Cigarette 08/18/23 15:40 e-Cigarette/Vaping Use Never Used 08/18/23 15:40 Thrive Assessment: Date of Thrive Assessment Date Thrive assessed 04/29/22 08/18/23 15:40 Const General: cooperative, comfortable and no acute distress HENMT Head: Yes normocephalic and Yes atraumatic Eyes General: appearance normal, both eyes and all related structures Pupils: Equal, round and reactive pupils present EOM: EOMs intact bilaterally Neck Neck: Yes supple and No lymphadenopathy Thyroid: Thyroid normal Lymphatic: no lymphadenopathy noted Chest Breast/axilla palpation: normal palpation of the breasts Resp Effort & Inspection: normal respiratory effort and able to speak in complete sentences Auscultation: clear to auscultation bilaterally Cardio Heart sounds: S1 normal heart sound present and S2 normal heart sound present GI Palpation (GI): Soft to palpation and nontender Auscultation: normal bowel sounds General: Yes no CVA tenderness Back/Spine/Pelvis Back: no CVA tenderness Skin General skin exam: elasticity normal and turgor normal Neuro Cranial nerves: Yes Equal, round and reactive pupils present Extrem Other: Severe arthritis multiple joints especially knees small joints of hand left shoulder General: Yes normal exam except as noted and No edema Assessment and Plan Assessment & Plan (1) Encounter for general adult medical examination with abnormal findings: Code(s): Z00.01 - Encounter for general adult medical examination with abnormal findings (2) Frontal lobe dementia: Code(s): G31.09 - Other frontotemporal neurocognitive disorder; F02.80 - Dementia in other diseases classified elsewhere, unspecified severity, without behavioral disturbance, psychotic disturbance, mood disturbance, and anxiety (3) COPD (chronic obstructive pulmonary disease): Code(s): J44.9 - Chronic obstructive pulmonary disease, unspecified Qualifiers: COPD type: unspecified COPD Qualified Code(s): J44.9 - Chronic obstructive pulmonary disease, unspecified (4) Arthritis of right shoulder region: Code(s): M19.011 - Primary osteoarthritis, right shoulder (5) Seizure disorder: Code(s): G40.909 - Epilepsy, unspecified, not intractable, without status epilepticus (6) Anxiety, generalized: Code(s): F41.1 - Generalized anxiety disorder (7) Osteoarthritis of right shoulder: Code(s): M19.011 - Primary osteoarthritis, right shoulder Qualifiers: Osteoarthritis type: primary Qualified Code(s): M19.011 - Primary osteoarthritis, right shoulder (8) Risk for falls: Code(s): Z91.81 - History of falling Plan Patient is 82-year-old female came in today for physical examination with the daughter She suffers from dementia which is getting gradually progressive Daughter is her primary caregiver She recently had a visit with neurologist and her medications were changed She is now on quetiapine 25 mg at night to counteract the agitation and help with sleep She is also on escitalopram 20 mg for anxiety. Patient is at risk for fall and need to wear gait belt Her daughter is helping her dress up in the morning She has severe osteoarthritis in multiple joints especially in small joints of hand and knees I have told daughter to get fwpr-bsc-gvvxfjw lidocaine 4% patches and apply dose to knees for pain Breathing is stable patient is on trilogy inhaler All her medications are through neurology office except the inhaler, vitamin-D, and nystatin powder She also take baby aspirin once a day and Tylenol as needed Daughter would like to continue mammograms, order printed and handed to daughter to be done at [facility] We will have a follow-up in six-month to refill her inhaler FMLA paperwork was filled during this visit for her daughter who is taking care of the patient Orders: Orders MM tomosynthesis screening BI Today Z12.31 - Encounter for screening mammogram for malignant neoplasm of breast Coding Level of Care Code Est Pt Level 3 (24526) Est Pt Prev Care >65y(31867) Diagnoses Encounter for general adult medical examination with abnormal findings Z00.01 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; F02.80 Chronic obstructive pulmonary disease, unspecified COPD type J44.9 COPD type: unspecified COPD Arthritis of right shoulder region M19.011 Seizure disorder G40.909 Anxiety, generalized F41.1 Primary osteoarthritis of right shoulder M19.011 Osteoarthritis type: primary Risk for falls Z91.81
== END 2023-08-18 16:24 | disposition home or self-care (01) ==
PROVIDERS: PCP Internal Medicine; Visit Provider Internal Medicine
DX: Z00.00 Encounter for general adult medical examination without abnormal findings (principal); G31.09 Other frontotemporal neurocognitive disorder; F02.80 Dementia in other diseases classified elsewhere, unspecified severity, without behavioral disturbance, psychotic disturbance, mood disturbance, and anxiety; J44.9 Chronic obstructive pulmonary disease, unspecified; G40.909 Epilepsy, unspecified, not intractable, without status epilepticus; M19.011 Primary osteoarthritis, right shoulder; F41.1 Generalized anxiety disorder; Z91.81 History of falling
CPT/HCPCS: 99397

== ENCOUNTER 2023-10-02 15:20 | Outpatient (AMB) | payer MEDICARE, MEDICAID, SELFPAY ==
--- NOTE | 2023-10-02 15:17 | MHC.OFFVIS ---
Intake Visit Reasons: 3m follow up Intake Note: Patient is Present for Telephone 3M Follow UP Urology Med:NONE Antibiotic Allergy:None Blood Thinner: Aspirin Motorboat Mechanic Required: No Allergies phenytoin [Dilantin] Allergy (Intermediate, Verified 10/02/23 16:14) gums affected-loosened and lost teeth divalproex sodium [From DEPAKOTE] Allergy (Unknown, Verified 10/02/23 16:14) Unknown-daughter does not remember reaction Medication List - Last Reconciled 10/02/23 by COLETTE Daly acetaminophen ER (Tylenol Arthritis Pain) 650 mg PO BID albuterol sulfate 90 mcg/actuation 1 inh inhalation QID PRN 30 days aspirin 81 mg PO DAILY carbamazepine 3 tabs PO BID cholecalciferol (vitamin D3) 25 mcg PO DAILY escitalopram oxalate 20 mg PO DAILY sqzrcotdewk-ihfneaddq-yeidhyru 100-62.5-25 mcg 1 ea inhalation DAILY 90 days nystatin 1 appl topical DAILY 30 days phenobarbital 97.2 mg PO BEDTIME vibegron (Gemtesa) 75 mg PO DAILY 90 days HPI Comments Details: Molly is a pleasant 83-year-old female patient of Dr. Eldridge who was accompanied by her daughter at today's telehealth visit. She has a past medical history of frontal lobe dementia, chronic hyponatremia, anxiety, COPD, osteoarthritis of the right shoulder, and epilepsy. She is being followed up on today via telehealth for her urinary urgency, urinary frequency, overactive bladder, and microscopic hematuria. In discussion with the patient's daughter today who provides much of today's history as patient is a poor historian she reports the day program patient goes to feels patient might have a urinary tract infection as she has been experiencing more falls over the last couple of days. Patient's daughter reports feeling Gemtesa has been helpful in decreasing episodes of nocturia patient had been experiencing. Patient's daughter also reports decreasing patient's caffeine consumption and feels this has also been helpful in decreasing her lower urinary tract symptoms She reports throughout the day she is at a day program and patient undergoes timed/scheduled voiding and feels this is helpful. She otherwise denies hematuria, dysuria, foul smelling urine, changes to urinary stream, flank pain, fever, and or chills. She is happy with her current voiding parameters on Gemtesa. She discusses following up with pain management for ongoing arthritic pain she experiences Microscopic hematuria UA today negative Imaging - 10/17 renal ultrasound negative Cystoscopy - 10/17 no abnormality detected does have some degree of trabeculation Urinary urgency Multiple prior therapies for overactive bladder Failed multiple and cholinergics including oxybutynin, VESIcare, and flomax Does respond to tamsulosin Prior use of InterStim which was removed [facility] Medical History Frontotemporal dementia Chronic hyponatremia Right shoulder pain Anxiety, generalized COPD, moderate Hematuria Osteoarthritis of right shoulder Epilepsy Surgical History S/P placement of nerve stimulator S/P placement of nerve stimulator History of cataract surgery History of appendectomy History of cholecystectomy Family History Maternal Grandmother Stomach cancer Sister Breast cancer Social History Household Members: Family Housing: House Are you a primary director of medicare to a significant other at home: No Do you presently have visiting nurse or other home services: Yes ([facility]) Alcohol intake: never Patient Tobacco Use Status: Former Tobacco user Tobacco use type: Cigarette e-Cigarette/Vaping Use: Never Used Advance Directives Date on File: 02/22/15 service: No Current occupational status: disabled Current occupation: right handed Cognitive needs: No Hearing needs: Yes Vision needs: Yes Review of Systems Const Reports no additional complaints Eyes Reports no additional complaints ENT Reports no additional complaints Card Reports no additional complaints Resp Reports as per HPI GI Reports no additional complaints Reports as per HPI Musc Reports as per HPI Neuro Reports as per HPI Psych Reports as per HPI Endo Reports no additional complaints Loco/Lymph Reports no additional complaints Aller/Immun Reports no additional complaints Physical Exam Const General: cooperative Orientation/consciousness: oriented to person Neuro General: oriented to person Psych Speech and movement: Clear speech present Attitude: cooperative Insight: Limited insight present (Psych) Judgement: Limited judgement present (Psych) Assessment & Plan Assessment & Plan (1) Cystitis: Code(s): N30.90 - Cystitis, unspecified without hematuria Category: Medical (2) Overactive bladder: Code(s): N32.81 - Overactive bladder Category: Medical Plan Order for urinalysis and culture submitted; to further assess for potential urinary tract infection given recent falls. Discussed seeking medical treatment for worsening symptoms; discussed worsening symptoms Patient/family report be happy with current voiding parameters on Gemtesa; will continue. Discussed bladder triggers/irritants. Follow-up in 3 months with [facility]; or sooner with any issues, concerns, and or questions. Orders: Orders UA CC w/rflx Micro + Cult Today R39.9 - Unspecified symptoms and signs involving the genitourinary system Patient Instructions: The patient had an opportunity to ask questions regarding the treatment plan. All questions were answered. Physical exam, labs, and imaging were discussed and reviewed in detail. As well as risks, benefits, and discussion of treatment choices. No major barriers to understanding were identified. The patient expressed understanding and agreement with the above treatment plan. The patient was made aware they should contact our office by phone for worsening of their current condition, the appearance of new symptoms, or with any questions or concerns. Compliance is encouraged with any medications and follow up testing that is ordered. It is a privilege to be allowed the opportunity to participate in? your urological care.? Again, if you have any questions or concerns If you have any questions or concerns please do not hesitate to contact me. The office is [phone]. This note is constructed using voice recognition software. While every effort has been made to ensure accuracy bookmaker map errors may have been included. Yours sincerely, COLETTE Daly Coding Level of Care Code Tele Est Pt Level 3 (72081) Complex EM visit Add On G2211 Diagnoses Cystitis N30.90 Overactive bladder N32.81 Time Spent (min) 15
== END 2023-10-02 15:59 | disposition home or self-care (01) ==
LOC: HO.HUSH 15:20
PROVIDERS: PCP Internal Medicine; Visit Provider Nurse Practitioner Family
DX: N30.90 Cystitis, unspecified without hematuria (principal); N32.81 Overactive bladder
CPT/HCPCS: 99213; G2211

== ENCOUNTER 2023-10-02 15:20 | Outpatient (REF) | payer MEDICARE, MEDICAID, SELFPAY | END 2023-10-02 15:21 | disposition home or self-care (01) | LOC: HO.LAB 15:20 | PROVIDERS: PCP Internal Medicine; Visit Provider Nurse Practitioner Family | DX: Z13.89 Encounter for screening for other disorder (principal) ==

== ENCOUNTER 2023-10-03 05:00 | Outpatient (REF) | payer MEDICARE, MEDICAID, SELFPAY ==
[2023-10-03 16:15] LABS: Appearance Urine Clear; Color Urine Yellow; Glucose Urine UA Negative (Negative); Leukocyte Esterase Urine Negative (Negative); Nitrite Urine Negative (Negative); Specific Gravity - Urine <= 1.005 (1.005-1.025); Urine Blood Negative (Negative); Urine Ketones Negative (Negative); Urine Protein Negative (Neg-Trace)
== END 2023-10-03 05:01 | disposition home or self-care (01) ==
LOC: HO.HMGCLNP 05:00
PROVIDERS: PCP Internal Medicine; Visit Provider Nurse Practitioner Family
DX: R39.9 Unspecified symptoms and signs involving the genitourinary system (principal)
CPT/HCPCS: 81003

== ENCOUNTER 2023-11-21 16:14 | Outpatient (AMB) | payer MEDICARE, MEDICAID, SELFPAY ==
[2023-11-21 16:29] VITALS: BP 126/82; PULSE 67; TEMP 36.5; O2SAT 98; BMI 26.2
--- NOTE | 2023-11-21 16:29 | MHC.OFFWIV ---
Intake Vital Signs 11/21/23 16:29 Height 5 ft 2 in Weight 143 lb BMI 26.2 BP 126/82 Blood Pressure Location Lt brachial Position Sitting Pulse 67 Pulse Source Pulse Oximeter Temp 97.7 F Temp Source Oral Pulse Oximetry (%) 98 Oxygen Delivery Method Room Air Intake Visit Reasons: EP ?constipation Intake Note: pt c/o constipation. Started today Patient Tobacco Use Status: Former Tobacco user Allergies phenytoin [Dilantin] Allergy (Intermediate, Verified 11/21/23 16:29) gums affected-loosened and lost teeth divalproex sodium [From DEPAKOTE] Allergy (Unknown, Verified 11/21/23 16:29) Unknown-daughter does not remember reaction Do you need a note to return to daycare/school/sports/work: No HPI EP ?constipation HPI Details 83-year-old female presents to the office for a sick visit. She is brought to the office by her daughter. Patient has dementia and goes to a elder daycare during the daytime. Today she was found to be straining and sitting in the toilet for a long time. Patient was slightly confused and agitated. The daughter calmed her down. Patient has bowel movements every day at home. Patient needs a letter to go back to attend daycare. [facility] Medical History Frontotemporal dementia Chronic hyponatremia Right shoulder pain Anxiety, generalized COPD, moderate Hematuria Osteoarthritis of right shoulder Epilepsy Surgical History S/P placement of nerve stimulator S/P placement of nerve stimulator History of cataract surgery History of appendectomy History of cholecystectomy Family History Maternal Grandmother Stomach cancer Sister Breast cancer Social History Household Members: Family Housing: House Are you a primary wound care technician to a significant other at home: No Do you presently have visiting nurse or other home services: Yes ([facility]) Alcohol intake: never Patient Tobacco Use Status: Former Tobacco user Tobacco use type: Cigarette e-Cigarette/Vaping Use: Never Used Advance Directives Date on File: 02/22/15 service: No Current occupational status: disabled Current occupation: right handed Cognitive needs: No Hearing needs: Yes Vision needs: Yes Physical Exam Vital Signs: Last Vital Signs Temp 97.7 F 11/21/23 16:29 Pulse 67 11/21/23 16:29 BP 126/82 11/21/23 16:29 Pulse Ox 98 11/21/23 16:29 Oxygen Delivery Method Room Air 11/21/23 16:29 BMI result Body Mass Index 26.2 GI Other: Abdomen: Normal to inspection. Bowel sounds are heard. No tenderness or organomegaly. Assessment & Plan Assessment & Plan (1) Constipation: Code(s): K59.00 - Constipation, unspecified Plan: Reassurance. No medications needed. Daughter reports that mother is at baseline state of health. If she has more confusion or agitation, I encouraged her to come back to the walk-in to be evaluated for an infection. Coding Level of Care Code Est Pt Level 3 (05936) Diagnoses Constipation K59.00
== END 2023-11-21 16:57 | disposition home or self-care (01) ==
PROVIDERS: PCP Internal Medicine; Visit Provider Internal Medicine
DX: K59.00 Constipation, unspecified (principal)

== ENCOUNTER → 2023-11-21 16:14 | Outpatient (BNVA) | payer MEDICARE, MEDICAID, SELFPAY | PROVIDERS: PCP Internal Medicine | DX: K59.00 Constipation, unspecified (principal) | CPT/HCPCS: 99212 ==

== ENCOUNTER 2024-01-04 14:51 | Outpatient (AMB) | payer MEDICARE, MEDICAID, SELFPAY ==
--- NOTE | 2024-01-04 15:28 | A.OFFVIS_ITS ---
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 Accompanied by: Daughter Allergies phenytoin [Dilantin] Allergy (Intermediate, Verified 01/07/24 10:43) gums affected-loosened and lost teeth divalproex sodium [From DEPAKOTE] Allergy (Unknown, Verified 01/07/24 10:43) Unknown-daughter does not remember reaction Medication List - Last Reconciled 01/07/24 by MARCELINO Daly-HENRY albuterol sulfate 90 mcg/actuation 1 inh inhalation QID PRN 30 days aspirin 81 mg PO DAILY carbamazepine 3 tabs PO BID cholecalciferol (vitamin D3) 25 mcg PO DAILY escitalopram oxalate 20 mg PO DAILY hdqpcbjkckx-vwfktxily-alzrewwe 100-62.5-25 mcg 1 ea inhalation DAILY 90 days naproxen sodium (Aleve) 220 mg PO BID PRN nystatin 1 appl topical DAILY PRN phenobarbital 97.2 mg PO BEDTIME quetiapine mg PO BID venlafaxine ER 150 mg PO DAILY HPI Comments Details: Molly is a pleasant 83-year-old female patient of Dr. Eldridge who was accompanied by her daughter at today's telehealth visit. She has a past medical history of frontal lobe dementia, chronic hyponatremia, anxiety, COPD, osteoarthritis of the right shoulder, and epilepsy. She presents to the office today for follow-up of her overactive bladder and microscopic hematuria. In discussion with the patient's daughter today who provides much of today's history as patient is a poor historian she reports patients day program report patient to only be urinating 1 time per day while at at her day program. Patient's daughter reports noting Gemtesa has been helpful in episodes of nocturia she had been experiencing. In office urinalysis results reviewed with the patient today. No microscopic hematuria noted on urinalysis today. PVR 281ml's. We discussed incomplete bladder emptying and affects of Bambi with potential incomplete bladder emptying. She otherwise denies hematuria, dysuria, foul smelling urine, changes to urinary stream, flank pain, fever, and or chills. She otherwise offers no other issues or concerns at this time. Microscopic hematuria UA today negative Imaging - 10/17 renal ultrasound negative Cystoscopy - 10/17 no abnormality detected does have some degree of trabeculation Urinary urgency Multiple prior therapies for overactive bladder Failed multiple and cholinergics including oxybutynin, VESIcare, and flomax Does respond to tamsulosin Prior use of InterStim which was removed [facility] Medical History Frontotemporal dementia Chronic hyponatremia Right shoulder pain Anxiety, generalized COPD, moderate Hematuria Osteoarthritis of right shoulder Epilepsy Surgical History S/P placement of nerve stimulator S/P placement of nerve stimulator History of cataract surgery History of appendectomy History of cholecystectomy Family History Maternal Grandmother Stomach cancer Sister Breast cancer Social History Household Members: Family Housing: House Are you a primary progressive care nurse to a significant other at home: No Do you presently have visiting nurse or other home services: Yes ([facility]) Alcohol intake: never Patient Tobacco Use Status: Former Tobacco user Tobacco use type: Cigarette e-Cigarette/Vaping Use: Never Used Advance Directives Date on File: 02/22/15 service: No Current occupational status: disabled Current occupation: right handed Cognitive needs: No Hearing needs: Yes Vision needs: Yes Review of Systems Const Reports no additional complaints Eyes Reports no additional complaints ENT Reports no additional complaints Card Reports no additional complaints Resp Reports as per HPI GI Reports no additional complaints Reports as per HPI Musc Reports as per HPI Neuro Reports as per HPI Psych Reports as per HPI Endo Reports no additional complaints Loco/Lymph Reports no additional complaints Aller/Immun Reports no additional complaints Physical Exam Const General: cooperative, healthy appearing, comfortable, no acute distress, well developed, alert and awake Orientation/consciousness: oriented to person Limitations: no limitations HEENT Head: Yes normal to inspection, Yes normocephalic and Yes atraumatic Ears: hearing grossly normal bilaterally Eyes General: appearance normal, both eyes and all related structures Neck Neck: Yes normal visual inspection and Yes trachea midline Chest Chest palpation & inspection: normal inspection of the chest Resp Effort & Inspection: normal respiratory effort and able to speak in complete sentences Cardio Rate: regular rate GI Inspection: Yes normal to inspection General: Yes no CVA tenderness Back/Spine/Pelvis Back: no CVA tenderness Skin General skin exam: no rashes or lesions noted Neuro General: oriented to person Extrem General: Yes normal to inspection Psych Appearance: grossly normal and well kempt Mental Status: mental status grossly normal Speech and movement: Clear speech present Affect: normal affect Attitude: cooperative Thought content: Normal thought content present Insight: Limited insight present (Psych) Judgement: Limited judgement present (Psych) Office Procedures Post Void Residual Post Residual Void Post Void Residual (PVR): 251 [id number] Void Residual by ultrasound Results AMB Urinalysis, Automated UA Leukoctes 15 Lele/uL Last Edit by [employer] on 01/04/24 16:28 UA Nitrite Last Edit by [employer] on 01/04/24 16:28 UA Urobilinogen 0.2 mg/dL Last Edit by [employer] on 01/04/24 16:28 UA Protein 0 mg/dL Last Edit by [employer] on 01/04/24 16:28 UA pH 6.0 Last Edit by [employer] on 01/04/24 16:28 UA Blood 0 Ajay/uL Last Edit by [employer] on 01/04/24 16:28 UA Specific [employer] 1.010 Last Edit by [employer] on 01/04/24 16:28 UA Ketone Negative Last Edit by [employer] on 01/04/24 16:28 UA Bilirubin 0 mg/dL Last Edit by [employer] on 01/04/24 16:28 UA Glucose 0 mg/dL Last Edit by [employer] on 01/04/24 16:28 Results Reviewed Results Reviewed: Laboratory Last Values Urine pH (Auto) 6.0 01/04/24 15:30 Specific [employer] (Auto) 1.010 01/04/24 15:30 Urine Protein (Auto) 0 mg/dL 01/04/24 15:30 Glucose (UA)(Auto) 0 mg/dL 01/04/24 15:30 Urine Ketones (Auto) Negative 01/04/24 15:30 Urine Blood (Auto) 0 Ajay/uL 01/04/24 15:30 Urine Bilirubin (Auto) 0 mg/dL 01/04/24 15:30 Urine Urobilinogen (Auto) 0.2 mg/dL 01/04/24 15:30 Leukocyte Esterase (Auto) 15 Lele/uL 01/04/24 15:30 Assessment & Plan Assessment & Plan (1) Lower urinary tract symptoms: Code(s): R39.9 - Unspecified symptoms and signs involving the genitourinary system Category: Medical (2) Overactive bladder: Code(s): N32.81 - Overactive bladder Category: Medical (3) Microscopic hematuria: Code(s): R31.29 - Other microscopic hematuria Category: Medical (4) Incomplete bladder emptying: Code(s): R33.9 - Retention of urine, unspecified Category: Medical Plan In office urinalysis results reviewed the patient today; as noted above. PVR 281 mL. We discussed at length incomplete bladder emptying. Stop Gemtesa as discussed. Discussed following up with nursing in 2 weeks for PVR; will await PVR results at that visit to discuss potential for low-dose terazosin if patient continues with increase in PVR despite stopping Gemtesa or low-dose VESIcare if postvoid residual is low and patient continues with lower urinary tract symptoms. Follow-up with nursing 1-2 weeks. Follow-up with provider in 3 months with PVR; or sooner any issues, concerns, and or questions. Orders: Orders AMB Urinalysis Automated 01/04/24 Z13.9 - Encounter for screening, unspecified AMB Post Void Residual by ultrasound 01/04/24 R39.9 - Unspecified symptoms and signs involving the genitourinary system Medications: Discontinued vibegron (Gemtesa) Discontinued Reason: Doctor's Order 75 mg PO DAILY 90 tabs 1RF 90 days N3 2.81 - Overactive bladder Patient Instructions: The patient had an opportunity to ask questions regarding the treatment plan. All questions were answered. Physical exam, labs, and imaging were discussed and reviewed in detail. As well as risks, benefits, and discussion of treatment choices. No major barriers to understanding were identified. The patient expressed understanding and agreement with the above treatment plan. The patient was made aware they should contact our office by phone for worsening of their current condition, the appearance of new symptoms, or with any questions or concerns. Compliance is encouraged with any medications and follow up testing that is ordered. It is a privilege to be allowed the opportunity to participate in? your urological care.? Again, if you have any questions or concerns If you have any questions or concerns please do not hesitate to contact me. The office is [phone]. This note is constructed using voice recognition software. While every effort has been made to ensure accuracy offal roller errors may have been included. Yours sincerely, COLETTE Daly Coding Level of Care Code Est Pt Level 4 (09205) Complex EM visit Add On G2211 Diagnoses Lower urinary tract symptoms R39.9 Overactive bladder N32.81 Microscopic hematuria R31.29 Incomplete bladder emptying R33.9 CPT Codes Post Residual Void - PVR CPT Code: 93835-Wjnw Void Residual by ultrasound ([id number]) Time Spent (min) 30
== END 2024-01-04 16:06 | disposition home or self-care (01) ==
LOC: HO.HUSH 14:52
PROVIDERS: PCP Internal Medicine; Visit Provider Nurse Practitioner Family
DX: R39.9 Unspecified symptoms and signs involving the genitourinary system (principal); N32.81 Overactive bladder; R31.29 Other microscopic hematuria; R33.9 Retention of urine, unspecified
CPT/HCPCS: 99214; G2211

== ENCOUNTER → 2024-01-04 14:51 | Outpatient (BNVA) | payer MEDICARE, MEDICAID, SELFPAY | PROVIDERS: PCP Internal Medicine; Visit Provider Nurse Practitioner Family | DX: R33.9 Retention of urine, unspecified (principal); N32.81 Overactive bladder; R31.29 Other microscopic hematuria | CPT/HCPCS: 51798; 81003; 99212 ==

== ENCOUNTER → 2024-01-12 15:25 | Outpatient (BNVA) | payer MEDICARE, MEDICAID, SELFPAY | PROVIDERS: PCP Internal Medicine; Visit Provider Internal Medicine | DX: L98.9 Disorder of the skin and subcutaneous tissue, unspecified (principal) | CPT/HCPCS: 99212 ==

== ENCOUNTER 2024-01-12 15:50 | Outpatient (AMB) | payer MEDICARE, MEDICAID, SELFPAY ==
--- NOTE | 2024-01-12 15:51 | AM.OFFWIN_ITS ---
Intake Vital Signs 3 01/12/24 15:52 Height 5 ft 2 in Weight 143 lb BMI 26.2 BP 126/80 Blood Pressure Location Rt brachial Position Sitting Pulse 66 Pulse Source Pulse Oximeter Pulse Oximetry (%) 97 Oxygen Delivery Method Room Air Intake Visit Reasons: EP-rt breast spot & fmla paperwork Intake Note: pt is here for right breast spot Patient Tobacco Use Status: Former Tobacco user Allergies phenytoin [Dilantin] Allergy (Intermediate, Verified 01/12/24 15:52) gums affected-loosened and lost teeth divalproex sodium [From DEPAKOTE] Allergy (Unknown, Verified 01/12/24 15:52) Unknown-daughter does not remember reaction Do you need a note to return to daycare/school/sports/work: No HPI HPI Comments 2 History of Present Illness0 Details 83 y/o female patient who presents to [facility] walk in clinic with c/o skin lesion right breast. Patient accompanied by daughter who provides history. Daughter reports that noticed some redness right breast ~ 6 weeks ago. Daughter believes the lesion is growing and spreading. [facility] Medical History Frontotemporal dementia Chronic hyponatremia Right shoulder pain Anxiety, generalized COPD, moderate Hematuria Osteoarthritis of right shoulder Epilepsy Surgical History S/P placement of nerve stimulator S/P placement of nerve stimulator History of cataract surgery History of appendectomy History of cholecystectomy Family History Maternal Grandmother Stomach cancer Sister Breast cancer Social History Household Members: Family Housing: House Are you a primary out of school hours care worker to a significant other at home: No Do you presently have visiting nurse or other home services: Yes ([facility]) Alcohol intake: never Patient Tobacco Use Status: Former Tobacco user Tobacco use type: Cigarette e-Cigarette/Vaping Use: Never Used Advance Directives Date on File: 02/22/15 service: No Current occupational status: disabled Current occupation: right handed Cognitive needs: No Hearing needs: Yes Vision needs: Yes Review of Systems Const All systems reviewed & are unremarkable except as noted in HPI and below Physical Exam Vital Signs: Last Vital Signs Pulse 66 01/12/24 15:52 BP 126/80 01/12/24 15:52 Pulse Ox 97 01/12/24 15:52 Oxygen Delivery Method Room Air 01/12/24 15:52 BMI result Body Mass Index 26.2 Const General: comfortable Nutritional Appearance: overweight Limitations: altered mental status and behavioral limitations Skin Lesions: lesion noted (right breast) Full body images: 2 1. Small erythematous lesion right breast. Lesion flat, non tender. Assessment & Plan Assessment & Plan (1) Skin lesion: Code(s): L98.9 - Disorder of the skin and subcutaneous tissue, unspecified Plan: Advised to f/u with Derm Not clear what etiology. F/U with PCP. Coding Level of Care Code Est Pt Level 3 (22594) Diagnoses Skin lesion L98.9 Time Spent (min) 15
[2024-01-12 15:52] VITALS: BP 126/80; PULSE 66; O2SAT 97; BMI 26.2
== END 2024-01-12 16:09 | disposition home or self-care (01) ==
PROVIDERS: PCP Internal Medicine; Visit Provider Nurse Practitioner Family
DX: L98.9 Disorder of the skin and subcutaneous tissue, unspecified (principal)

== ENCOUNTER → 2024-01-18 14:05 | Outpatient (BNVA) | payer MEDICARE, MEDICAID, SELFPAY | PROVIDERS: PCP Internal Medicine | DX: J44.9 Chronic obstructive pulmonary disease, unspecified (principal); R33.9 Retention of urine, unspecified | CPT/HCPCS: 51798; 99212 ==

== ENCOUNTER 2024-01-18 15:10 | Outpatient (AMB) | payer MEDICARE, MEDICAID, SELFPAY ==
--- NOTE | 2024-01-18 15:11 | A.OFFVIS_ITS ---
Vital Signs 01/18/24 15:12 Height 5 ft 2 in Weight 140 lb BMI 25.6 BP 100/60 Blood Pressure Location Rt brachial Position Sitting Pulse 70 Pulse Source Doppler Pulse Oximetry (%) 96 Oxygen Delivery Method Room Air Intake Visit Reasons: COPD Allergies phenytoin [Dilantin] Allergy (Intermediate, Verified 01/12/24 15:52) gums affected-loosened and lost teeth divalproex sodium [From DEPAKOTE] Allergy (Unknown, Verified 01/12/24 15:52) Unknown-daughter does not remember reaction HPI HPI COPD: Details: 83-year-old lady, former 40-50 pack-year smoker, quit 2005 with underlying dementia now followed for moderate COPD well controlled on current regimen of trilogy and albuterol MDI. Patient denies any recent exacerbations. [facility] Medical History Frontotemporal dementia Chronic hyponatremia Right shoulder pain Anxiety, generalized COPD, moderate Hematuria Osteoarthritis of right shoulder Epilepsy Surgical History S/P placement of nerve stimulator S/P placement of nerve stimulator History of cataract surgery History of appendectomy History of cholecystectomy Family History Maternal Grandmother Stomach cancer Sister Breast cancer Social History Household Members: Family Housing: House Are you a primary hemodialysis patient care specialist to a significant other at home: No Do you presently have visiting nurse or other home services: Yes ([facility]) Alcohol intake: never Patient Tobacco Use Status: Former Tobacco user Tobacco use type: Cigarette e-Cigarette/Vaping Use: Never Used Advance Directives Date on File: 02/22/15 service: No Current occupational status: disabled Current occupation: right handed Cognitive needs: No Hearing needs: Yes Vision needs: Yes Review of Systems Card Denies dyspnea on exertion Resp Denies cough, Denies excessive phlegm production, Denies dyspnea on exertion and Denies wheezing Aller/Immun Denies wheezing Physical Exam Vital Signs: Last Vital Signs Pulse 70 01/18/24 15:12 BP 100/60 01/18/24 15:12 Pulse Ox 96 01/18/24 15:12 Oxygen Delivery Method Room Air 01/18/24 15:12 BMI result Body Mass Index 25.6 Const General: no acute distress, alert and awake Eyes Sclerae: sclerae normal EOM: EOMs intact bilaterally Neck Neck: Yes no lymphadenopathy, Yes trachea midline and Yes supple Resp Effort & Inspection: normal respiratory effort and no respiratory distress Auscultation: clear to auscultation bilaterally Cardio Rate: regular rate Rhythm: regular rhythm Heart sounds: no gallops, no murmurs and no rubs GI Palpation (GI): Soft to palpation and Other GI palpation findings present ( Nontender) Auscultation: normal bowel sounds Extrem General: Yes no pedal edema, No clubbing and No cyanosis Assessment & Plan Assessment & Plan (1) COPD, moderate: Code(s): J44.9 - Chronic obstructive pulmonary disease, unspecified Category: Medical Plan: Well controlled on current regimen of Trelegy and albuterol MDI. Continue current regimen. Coding Level of Care Code Est Pt Level 3 (82394) Diagnoses COPD, moderate J44.9
[2024-01-18 15:12] VITALS: BP 100/60; PULSE 70; O2SAT 96; BMI 25.6
== END 2024-01-18 15:28 | disposition home or self-care (01) ==
PROVIDERS: PCP Internal Medicine; Visit Provider Internal Medicine Pulmonary Disease
DX: J44.9 Chronic obstructive pulmonary disease, unspecified (principal)
CPT/HCPCS: 99213

== ENCOUNTER 2024-02-01 08:31 | Outpatient (AMB) | payer MEDICARE, MEDICAID, SELFPAY ==
--- NOTE | 2024-02-01 08:28 | A.OFFPC_ITS ---
Intake Visit Reasons: 6M TH Refills Allergies phenytoin [Dilantin] Allergy (Intermediate, Verified 02/01/24 08:31) gums affected-loosened and lost teeth divalproex sodium [From DEPAKOTE] Allergy (Unknown, Verified 02/01/24 08:31) Unknown-daughter does not remember reaction Medication List - Last Reconciled 02/01/24 by Nila Eldridge MD albuterol sulfate 90 mcg/actuation 1 inh inhalation QID PRN 30 days aspirin 81 mg PO DAILY carbamazepine 3 tabs PO BID cholecalciferol (vitamin D3) 25 mcg PO DAILY escitalopram oxalate 20 mg PO DAILY zvmnvzfkzik-fkrqwfwem-kahfxzhu 100-62.5-25 mcg 1 ea inhalation DAILY 90 days naproxen sodium (Aleve) 220 mg PO BID PRN nystatin 1 appl topical DAILY PRN phenobarbital 97.2 mg PO BEDTIME quetiapine mg PO BID solifenacin 5 mg PO DAILY 30 days venlafaxine ER 150 mg PO DAILY Tobacco use date assessed: 08/30/23 Fall risk assessment: 2 + Falls in past year Last assessed Fall Risk: 02/01/24 Dental Screening Dental Screen Date: 02/01/24 Did you have a dental visit in the last 12 months?: No Did you have a dental problem in the last 6 months where you did not have access to dental care?: No Was dental information given to patient?: Patient declined HPI 6M TH Refills HPI Details Chief Complaint Daughter reports a spot on the patient's right breast requiring evaluation. Assessment and Plan 83-year-old female with history of skin lesion presenting with concerns about a spot on her right breast. The lesion was first noticed approximately six weeks ago. A prior visit to a walk-in clinic led to a referral to Dr. Lu, who is unavailable for new Medicare patients. The patient?s daughter indicates that the lesion remains present as of the latest observation. During this interaction, I aimed to personally evaluate the lesion to determine if immediate intervention is necessary or if it can be monitored over time. There was also a discussion regarding medication management, specifically focusing on ensuring the patient is accurately following prescriptions as directed by neurology. A comprehensive visit is warranted to address these concerns further, along with necessary lab work due to the significant time elapsed since the last tests. 1. Skin Lesion On Right Breast The lesion will be reviewed in detail during a comprehensive visit to determine its nature and appropriate management. Plans for referral to dermatology for assessment will be implemented if necessary, pending evaluation results in the clinic. 2. Medication Management Review and confirm the patient's medication list obtained from neurology: aspirin, carbamazepine, vitamin D, escitalopram, naproxen, nystatin topical, phenobarbital, quetiapine, and venlafaxine. Adjustments or confirmations of therapeutic goals will be considered after reviewing neurological input and recent lab work. Transition inhaler management to Dr. Enamorado as discussed. Problem List - Skin Lesion on Right Breast - Medication Management Patient Instructions - Schedule and attend a comprehensive vi sit for a complete evaluation of the skin lesion and further laboratory tests. - Continue current medication regimen as prescribed by neurology, and ensure that any new managed care is confirmed during the next appointment. - Prepare to visit for lab work prior to the comprehensive visit if possible, and aim for a fasting state for these tests. - Monitor weather conditions for safe tr lurdes, and avoid coming in during inclement weather for the purpose of the appointment. - Daughter to manage scheduling of appoi ntments during late hours post-daycare for patient convenience. - Please respond promptly to any communi cations regarding the drafting and finalization of the FMLA letter for the caregiver role. [facility] Medical History Frontotemporal dementia Chronic hyponatremia Right shoulder pain Anxiety, generalized COPD, moderate Hematuria Osteoarthritis of right shoulder Epilepsy Surgical History S/P placement of nerve stimulator S/P placement of nerve stimulator History of cataract surgery History of appendectomy History of cholecystectomy Family History Maternal Grandmother Stomach cancer Sister Breast cancer Social History Household Members: Family Housing: House Are you a primary healthcare advisory services manager to a significant other at home: No Do you presently have visiting nurse or other home services: Yes ([facility]) Alcohol intake: never Patient Tobacco Use Status: Former Tobacco user Tobacco use type: Cigarette e-Cigarette/Vaping Use: Never Used Advance Directives Date on File: 02/22/15 service: No Current occupational status: disabled Current occupation: right handed Cognitive needs: No Hearing needs: Yes Vision needs: Yes Questionnaire Thrive Questionnaire Date Thrive assessed: 04/29/22 KACIE-7 AMB Questionnaire KACIE-7 Date KACIE - 7 assessed: 04/29/22 Source: Developed by Drs. Isidoro Gonzalez, Jennifer Forrester, Ian Nix and colleagues, with an educational alex from [employer] Review of Systems Const Denies chills and Denies fever(s) ENT Denies epistaxis and Denies nasal discharge Card Denies chest pain Resp Denies chest congestion, Denies cough and Denies hemoptysis GI Denies diarrhea and Denies nausea Skin/Breast Denies rash Neuro Reports no additional complaints Psych Reports no additional complaints Endo Reports no additional complaints Physical exam (Primary Care) Tobacco/Smoking Status: Tobacco use Status Tobacco use date assessed 08/30/23 02/01/24 08:30 Patient Tobacco Use Status Former Tobacco user 02/01/24 08:30 Tobacco use type Cigarette 02/01/24 08:30 e-Cigarette/Vaping Use Never Used 02/01/24 08:30 Thrive Assessment: Date of Thrive Assessment Date Thrive assessed 04/29/22 02/01/24 08:30 Telehealth Telehealth Telehealth Platform: [facility] Location of provider rendering services: practice address Location of patient: address on file Patient Identification confirmed using: Name, : Yes Telehealth method: voice only Patient verbally consented to treatment: Yes Patient verbally consented to billing insurance company: Yes Patient informed of any privacy concerns related to visit: Yes Minutes spent on Phone/Video with Pt.: 16 Coding Level of Care Code Tele Est Pt Level 3 (82133) Complex EM visit Add On G2211 Diagnoses Skin lesion L98.9 Anxiety, generalized F41.1 COPD, moderate J44.9 Overactive bladder N32.81 Seizure disorder G40.909 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; F02.80 Lipid disorder E78.9 Assessment & Plan Assessment & Plan (1) Skin lesion: Code(s): L98.9 - Disorder of the skin and subcutaneous tissue, unspecified Category: Medical (2) Anxiety, generalized: Code(s): F41.1 - Generalized anxiety disorder Category: Medical (3) COPD, moderate: Code(s): J44.9 - Chronic obstructive pulmonary disease, unspecified Category: Medical (4) Overactive bladder: Code(s): N32.81 - Overactive bladder Category: Medical (5) Seizure disorder: Code(s): G40.909 - Epilepsy, unspecified, not intractable, without status epilepticus Category: Medical (6) Frontal lobe dementia: Code(s): G31.09 - Other frontotemporal neurocognitive disorder; F02.80 - Dementia in other diseases classified elsewhere, unspecified severity, without behavioral disturbance, psychotic disturbance, mood disturbance, and anxiety Category: Medical (7) Lipid disorder: Comment: Make healthy food choices . Eat lots of fruits, vegetables, whole grains, and low-fat dairy products. Limit the amount of meat and fried or fatty foods that you eat. Be active Walk, garden, or do something active for 30 minutes or more on most days of the week. If you smoke, stop smoking. Smoking increases the chance of heart attack or stroke, or develop cancer.If you are over weight, Lose weight, Being overweight increases the risk of many health problems. Avoid alcohol Alcohol can increase blood sugar and blood pressure. Code(s): E78.9 - Disorder of lipoprotein metabolism, unspecified Category: Medical Plan Chief Complaint Daughter reports a spot on the patient's right breast requiring evaluation. Assessment and Plan 83-year-old female with history of skin lesion presenting with concerns about a spot on her right breast. The lesion was first noticed approximately six weeks ago. A prior visit to a walk-in clinic led to a referral to Dr. Lu, who is unavailable for new Medicare patients. The patient?s daughter indicates that the lesion remains present as of the latest observation. During this interaction, I aimed to personally evaluate the lesion to determine if immediate intervention is necessary or if it can be monitored over time. There was also a discussion regarding medication management, specifically focusing on ensuring the patient is accurately following prescriptions as directed by neurology. A comprehensive visit is warranted to address these concerns further, along with necessary lab work due to the significant time elapsed since the last tests. 1. Skin Lesion On Right Breast The lesion will be reviewed in detail during a comprehensive visit to determine its nature and appropriate management. Plans for referral to dermatology for assessment will be implemented if necessary, pending evaluation results in the clinic. 2. Medication Management Review and confirm the patient's medication list obtained from neurology: aspirin, carbamazepine, vitamin D, escitalopram, naproxen, nystatin topical, phenobarbital, quetiapine, and venlafaxine. Adjustments or confirmations of therapeutic goals will be considered after reviewing neurological input and recent lab work. Transition inhaler management to Dr. Enamorado as discussed. Problem List - Skin Lesion on Right Breast - Medication Management Patient Instructions - Schedule and attend a comprehensive visit for a complete evaluation of the skin lesion and further laboratory tests. - Continue current medication regimen as prescribed by neurology, and ensure that any new managed care is confirmed during the next appointment. - Prepare to visit for lab work prior to the comprehensive visit if possible, and aim for a fasting state for these tests. - Monitor weather conditions for safe travel, and avoid coming in during inclement weather for the purpose of the appointment. - Daughter to manage scheduling of appointments during late hours post-daycare for patient convenience. - Please respond promptly to any communications regarding the drafting and finalization of the FMLA letter for the caregiver role. Orders: Orders Comprehensive [place]. Panel Fast 02/01/24 E78.9 - Disorder of lipoprotein metabolism, unspecified, F02.80 - Dementia in other diseases classified elsewhere, unspecified severity, without behavioral disturbance, psychotic disturbance, mood disturbance, and anxiety, F41.1 - Generalized anxiety disorder, G31.09 - Other frontotemporal neurocognitive disorder, G40.909 - Epilepsy, unspecified, not intractable, without status epilepticus, J44.9 - Chronic obstructive pulmonary disease, unspecified, N32.81 - Overactive bladder Lipid Panel 02/01/24 E78.9 - Disorder of lipoprotein metabolism, unspecified, F02.80 - Dementia in other diseases classified elsewhere, unspecified severity, without behavioral disturbance, psychotic disturbance, mood disturbance, and anxiety, F41.1 - Generalized anxiety disorder, G31.09 - Other frontotemporal neurocognitive disorder, G40.909 - Epilepsy, unspecified, not intractable, without status epilepticus, J44.9 - Chronic obstructive pulmonary disease, unspecified, N32.81 - Overactive bladder Vitamin D 25-OH (D2 and D3) 02/01/24 E78.9 - Disorder of lipoprotein metabolism, unspecified, F02.80 - Dementia in other diseases classified elsewhere, unspecified severity, without behavioral disturbance, psychotic disturbance, mood disturbance, and anxiety, F41.1 - Generalized anxiety disorder, G31.09 - Other frontotemporal neurocognitive disorder, G40.909 - Epilepsy, unspecified, not intractable, without status epilepticus, J44.9 - Chronic obstructive pulmonary disease, unspecified, N32.81 - Overactive bladder Vitamin B12 02/01/24 E78.9 - Disorder of lipoprotein metabolism, unspecified, F02.80 - Dementia in other diseases classified elsewhere, unspecified severity, without behavioral disturbance, psychotic disturbance, mood disturbance, and anxiety, F41.1 - Generalized anxiety disorder, G31.09 - Other frontotemporal neurocognitive disorder, G40.909 - Epilepsy, unspecified, not intractable, without status epilepticus, J44.9 - Chronic obstructive pulmonary disease, unspecified, N32.81 - Overactive bladder TSH reflex Free T4 02/01/24 E78.9 - Disorder of lipoprotein metabolism, unspecified, F02.80 - Dementia in other diseases classified elsewhere, unspecified severity, without behavioral disturbance, psychotic disturbance, mood disturbance, and anxiety, F41.1 - Generalized anxiety disorder, G31.09 - Other frontotemporal neurocognitive disorder, G40.909 - Epilepsy, unspecified, not intractable, without status epilepticus, J44.9 - Chronic obstructive pulmonary disease, unspecified, N32.81 - Overactive bladder Complete Blood Count Auto Diff 02/01/24 E78.9 - Disorder of lipoprotein metabolism, unspecified, F02.80 - Dementia in other diseases classified elsewhere, unspecified severity, without behavioral disturbance, psychotic disturbance, mood disturbance, and anxiety, F41.1 - Generalized anxiety disorder, G31.09 - Other frontotemporal neurocognitive disorder, G40.909 - Epilepsy, unspecified, not intractable, without status epilepticus, J44.9 - Chronic obstructive pulmonary disease, unspecified, N32.81 - Overactive bladder
== END 2024-02-01 11:24 | disposition home or self-care (01) ==
LOC: HO.HMCC 08:31
PROVIDERS: PCP Internal Medicine; Visit Provider Internal Medicine
DX: J44.9 Chronic obstructive pulmonary disease, unspecified (principal); G40.909 Epilepsy, unspecified, not intractable, without status epilepticus; G31.09 Other frontotemporal neurocognitive disorder; F02.80 Dementia in other diseases classified elsewhere, unspecified severity, without behavioral disturbance, psychotic disturbance, mood disturbance, and anxiety; L98.9 Disorder of the skin and subcutaneous tissue, unspecified; F41.1 Generalized anxiety disorder; N32.81 Overactive bladder; E78.9 Disorder of lipoprotein metabolism, unspecified

== ENCOUNTER → 2024-02-01 08:31 | Outpatient (BNVA) | payer MEDICARE, MEDICAID, SELFPAY | PROVIDERS: PCP Internal Medicine; Visit Provider Internal Medicine ==